=== PATIENT | male | born 1965 | race Caucasian/White ===

== ENCOUNTER → 2018-06-07 13:16 | Outpatient (CLI) | payer MEDICAID, SELFPAY ==
--- NOTE | 2018-06-07 13:20 | XR_ITS ---
XR knee RT 4V HISTORY: ITS.REASON: Rt knee pain ORDERING PHYSICIAN: Meghann Barron MD PATIENT AGE: 52 years COMPARISON: 12/17/2017 FINDINGS: Weightbearing views are performed. There is mild hypertrophic change along the lateral aspect of the patella with minimal decrease in the joint space medially. Small suprapatellar effusion suspected. No fracture or dislocation. No lytic or blastic change IMPRESSION: Minimal osteoarthritic change
== END ==
PROVIDERS: PCP Emergency Medicine; Visit Provider Orthopaedic Surgery
DX: M25.461 Effusion, right knee (principal)
CPT/HCPCS: 73564

== ENCOUNTER → 2018-06-14 12:46 | Outpatient (CLI) | payer MEDICAID, SELFPAY ==
--- NOTE | 2018-06-14 12:47 | MR_ITS ---
MR knee RT wo con HISTORY: Recent trauma, injury with pain ITS.REASON: rt knee pain ORDERING PHYSICIAN: Meghann Barron MD PATIENT AGE: 52 years Comparison: 06/07/2018 TECHNIQUE: Standard multiplanar multiecho sequences are performed without contrast. FINDINGS: Cruciate ligaments are intact. The collateral ligaments and patellar tendon have an unremarkable appearance. No meniscal tear is evident. There is some mild thinning of the patellar cartilage with slight increased T2 signal. There is a small area of increased T2 signal involving the dorsal and lateral aspect of the patella superiorly and is a in a typical location for dorsal defect of the patella as a normal variant. There is a small knee joint effusion. Moderate amount fluid is present in the suprapatellar region extending posterior to the quadriceps tendon. There is suspected tear of the posterior layer/vastus intermedius portion of the quadriceps tendon. The most anterior portion of the quadriceps tendon/rectus femoris portion does appear intact. Please correlate with physical exam. IMPRESSION: 1. Suspected tear of the posterior layer of the quadriceps tendon 2. Knee joint effusion
== END ==
PROVIDERS: PCP Emergency Medicine; Visit Provider Orthopaedic Surgery
DX: M25.461 Effusion, right knee (principal)
CPT/HCPCS: 73721

== ENCOUNTER → 2018-06-19 11:33 | Outpatient (CLI) | payer MEDICAID, SELFPAY ==
--- NOTE | 2018-06-19 11:51 | XR_ITS ---
XR chest 2V HISTORY: ITS.REASON: H/O TOBACCO USE,HTN ORDERING PHYSICIAN: Meghann Barron MD PATIENT AGE: 52 years COMPARISON: 02/23/2017 FINDINGS: Normal heart size. COPD with fibrotic change in the right upper lobe. No lobar consolidation or collapse. Chronic changes in the lung base posteriorly. No acute bony findings. IMPRESSION: COPD, no change with no acute finding
[2018-06-19 12:15] LABS: INR 1.01 (0.9-1.1); Prothrombin Time 10.4 seconds (9.4-11.8)
[2018-06-19 12:27] LABS: Basophils # 0.1 K/mm3 (0-0.2); Basophils % 0.6 % (0.1-2.0); Eosinophils # 0.8 K/mm3 (0.0-0.4); Eosinophils % 8.3 % (0.1-12.0); Hemoglobin 15.4 g/dL (14.1-18.0); Lymphocytes # 2.9 K/mm3 (0.7-4.5); Lymphocytes % 30.8 % (10-50); Mean Corpuscular HGB Conc 34.2 g/dL (31.8-35.4); Mean Corpuscular Hemoglobin 31.5 pg (27.0-31.2); Mean Corpuscular Volume 92.2 fl (80-94); Mean Platelet Volume 7.2 fl (7.4-10.4); Monocytes # 0.6 K/mm3 (0.1-1.0); Monocytes % 5.9 % (1.7-9.3); Neutrophils # 5.1 K/mm3 (1.8-7.8); Neutrophils % 54.4 % (37.0-80.0); Platelet Count 247 K/mm3 (142-424); Red Blood Count 4.88 M/mm3 (4.60-6.20); Red Cell Distribution Width 14.1 % (11.5-17.5); White Blood Count 9.4 K/mm3 (4.8-10.8)
[2018-06-19 12:33] LABS: Alanine Aminotransferase 46 U/L (12-78); Alkaline Phosphatase 75 U/L (46-116); Aspartate Amino Transferase 35 U/L (15-37); Bilirubin,Total 0.5 mg/dL (0.2-1.0); Blood Urea Nitrogen 9 mg/dL (7-18); Calcium 9.5 mg/dL (8.5-10.1); Carbon Dioxide 27 mmol/L (21.0-32.0); Chloride 93 mmol/L (98-107); Estimated Glomerular Filt Rate 89 ml/min (>60); GFR (African American) 107 ML/MIN (>60); Globulin 4.1 gm/dl (1.3-3.2); Glucose 88 mg/dL (74-106); Sodium 129 mmol/L (136-145); Total Protein,Serum 8.1 gm/dL (6.4-8.2)
== END ==
PROVIDERS: Visit Provider Orthopaedic Surgery
DX: Z01.818 Encounter for other preprocedural examination (principal); S76.111A Strain of right quadriceps muscle, fascia and tendon, initial encounter
CPT/HCPCS: 36415; 71046; 80053; 85025; 85610; 93005

== ENCOUNTER → 2018-06-24 17:33 | Outpatient (CLI) | payer MEDICAID, SELFPAY ==
[2018-06-24 18:14] LABS: Anion Gap 16.9 mEq/L (5-15); Blood Urea Nitrogen 8 mg/dL (7-18); Calcium 9.3 mg/dL (8.5-10.1); Carbon Dioxide 24 mmol/L (21.0-32.0); Chloride 93 mmol/L (98-107); Creatinine,Serum 0.76 mg/dL (0.70-1.30); Estimated Glomerular Filt Rate 108 ml/min (>60); GFR (African American) 130 ML/MIN (>60); Glucose 93 mg/dL (74-106); Potassium 4.9 mmoL/L (3.5-5.1); Sodium 129 mmol/L (136-145)
== END ==
PROVIDERS: Visit Provider Nurse Practitioner Family
DX: E87.1 Hypo-osmolality and hyponatremia (principal)
CPT/HCPCS: 80048

== ENCOUNTER → 2018-06-27 08:52 | Outpatient (CLI) | payer MEDICAID, SELFPAY ==
--- NOTE | 2018-06-27 08:57 | XR_ITS ---
XR hip RT 2-3V w/pelvis HISTORY: ITS.REASON: RT hip pain ORDERING PHYSICIAN: Meghann Barron MD PATIENT AGE: 52 years COMPARISON: None FINDINGS: No fracture or dislocation is evident. No significant degenerative change. No lytic or blastic change. Unremarkable soft tissues IMPRESSION: Negative hip
== END ==
PROVIDERS: PCP Emergency Medicine; Visit Provider Orthopaedic Surgery
DX: M25.551 Pain in right hip (principal)
CPT/HCPCS: 73502

== ENCOUNTER → 2018-07-04 10:21 | Outpatient (CLI) | payer MEDICAID, SELFPAY ==
--- NOTE | 2018-07-04 10:23 | US_ITS ---
US kidney retroperitoneal comp Ordering Physician: Frieda Felix Patient Age: 52 years: Male HISTORY: ITS.REASON: electrolyte imbalance TECHNIQUE: Ultrasound of both kidneys. COMPARISON :CT abdomen pelvis 02/23/2017. FINDINGS The kidneys appear normal in size and configuration bilateral, with no hydronephrosis nor mass. Cortex well-maintained bilaterally.Good color Doppler flow to both kidneys. spleen is incidentally imaged & appears normal size in character. Right kidney: 10.2 cm in length x 4.8 cm x 8.3 cm Left kidney: 10 cm x 4.7 cm x 5.7 cm. IMPRESSION: Kidneys within normal limits bilateral . Unremarkable bilateral renal ultrasound.
== END ==
PROVIDERS: PCP Nurse Practitioner Family; Visit Provider Nurse Practitioner Family
DX: E87.1 Hypo-osmolality and hyponatremia (principal); E87.8 Other disorders of electrolyte and fluid balance, not elsewhere classified
CPT/HCPCS: 76770

== ENCOUNTER → 2018-07-08 11:28 | Outpatient (CLI) | payer MEDICAID, SELFPAY ==
[2018-07-08 12:00] LABS: Basophils # 0.1 K/mm3 (0-0.2); Basophils % 0.6 % (0.1-2.0); Eosinophils # 0.8 K/mm3 (0.0-0.4); Eosinophils % 9.1 % (0.1-12.0); Hematocrit 42.7 % (42.0-52.0); Lymphocytes # 2.4 K/mm3 (0.7-4.5); Lymphocytes % 27.6 % (10-50); Mean Corpuscular HGB Conc 32.7 g/dL (31.8-35.4); Mean Corpuscular Hemoglobin 30.5 pg (27.0-31.2); Mean Corpuscular Volume 93.5 fl (80-94); Monocytes # 0.6 K/mm3 (0.1-1.0); Monocytes % 6.9 % (1.7-9.3); Neutrophils # 4.8 K/mm3 (1.8-7.8); Neutrophils % 55.8 % (37.0-80.0); Platelet Count 378 K/mm3 (142-424); Red Blood Count 4.57 M/mm3 (4.60-6.20); Red Cell Distribution Width 13.9 % (11.5-17.5); White Blood Count 8.5 K/mm3 (4.8-10.8)
[2018-07-10 13:22] LABS: Anion Gap 14.6 mEq/L (5-15); Blood Urea Nitrogen 9 mg/dL (7-18); Calcium 9.2 mg/dL (8.5-10.1); Carbon Dioxide 23 mmol/L (21.0-32.0); Chloride 94 mmol/L (98-107); Creatinine,Serum 0.85 mg/dL (0.70-1.30); Estimated Glomerular Filt Rate 95 ml/min (>60); GFR (African American) 115 ML/MIN (>60); Glucose 87 mg/dL (74-106); Potassium 4.6 mmoL/L (3.5-5.1); Sodium 127 mmol/L (136-145)
== END ==
PROVIDERS: Visit Provider Nurse Practitioner Family
DX: E87.1 Hypo-osmolality and hyponatremia (principal)
CPT/HCPCS: 36415; 80048; 83930; 85025

== ENCOUNTER → 2018-07-11 15:10 | Outpatient (CLI) | payer MEDICAID, SELFPAY ==
[2018-07-14 17:28] LABS: Osmolality, Urine 181 mOsmol/kg (.)
== END ==
PROVIDERS: Visit Provider Nurse Practitioner Family
DX: E87.1 Hypo-osmolality and hyponatremia (principal)
CPT/HCPCS: 83935

== ENCOUNTER 2018-07-18 14:00 | Outpatient (RCR) | payer MEDICAID, SELFPAY ==
--- NOTE | 2018-07-11 15:20 | HMH.PTOPEV ---
PT Outpatient Evaluation Rehab PT Outpatient Evaluation Start: 07/11/18 15:06 Freq: Status: Active Protocol: Document 07/11/18 15:07 ERICFRANCA (Rec: 07/11/18 15:20 WYATT [id number]) Electronically Signed By Haider Aceves PT 07/11/18 15:07 Outpatient Therapy Subjective History Subjective History This is the initial Physical Therapy evaluation for Vinay Juarez. Pt is a 52 y/o male referred to PT s/p L quad tendon repair. Pt had sx . Pt was unable to give good hx of original incident. Pt did state he slipped on his deck w/ leg bent underneath him. Pt rpeorts it happend ~ 6 months ago but pt also did not know what month it was and smelled of alcohol. After call to MD original report states accident was inat end of April 2018 Chief Complaint Pain Stiff Symptom Type Ache Sharp Numbness Tingling Symptoms Relieved By Rest/Positioning Prescription Meds Symptoms Aggravated By Physical Activity Walking Prior Functional Limitations None Current Functional Limitations Housework Standing Squatting Recreation Activity Walking Stairs Symptom Description Constant but Variable Hip/Knee Eval Gait Observation General Gait Pattern Observation Decrease Weight Bear (L) Assistive Device Assistive Devices Wheelchair Palpation Tenderness left Knee Palpation Finding Tenderness ROM Knee Extension Active Range of Motion ( 0 degrees) Knee Flexion Active Range of Motion ( 30 deg per protocol degrees) Outpatient Therapy Assessment Impairments Problems/Impairmments Palpation Tenderness Impaired Range of Motion Impaired Strength Impaired Walking Impaired Standing Impaired Household Care Impaired Stair Climbing Impaired Recreational
== END 2018-07-18 14:05 | disposition home or self-care (01) ==
LOC: PT 14:00
PROVIDERS: Visit Provider Orthopaedic Surgery
DX: S76.111D Strain of right quadriceps muscle, fascia and tendon, subsequent encounter (principal)
CPT/HCPCS: 97010; 97110; 97163

== ENCOUNTER → 2018-08-08 16:35 | Outpatient (CLI) | payer MEDICAID, SELFPAY ==
[2018-08-08 17:46] LABS: Basophils % 0.6 % (0.1-2.0); Eosinophils # 0.4 K/mm3 (0.0-0.4); Eosinophils % 5.4 % (0.1-12.0); Hematocrit 45.1 % (42.0-52.0); Hemoglobin 15.1 g/dL (14.1-18.0); Lymphocytes # 2.2 K/mm3 (0.7-4.5); Lymphocytes % 30.5 % (10-50); Mean Corpuscular HGB Conc 33.5 g/dL (31.8-35.4); Mean Corpuscular Volume 89.7 fl (80-94); Mean Platelet Volume 7.5 fl (7.4-10.4); Monocytes # 0.5 K/mm3 (0.1-1.0); Monocytes % 7.7 % (1.7-9.3); Neutrophils # 3.9 K/mm3 (1.8-7.8); Neutrophils % 55.9 % (37.0-80.0); Platelet Count 296 K/mm3 (142-424); Red Blood Count 5.02 M/mm3 (4.60-6.20); Red Cell Distribution Width 13.9 % (11.5-17.5); White Blood Count 7.1 K/mm3 (4.8-10.8)
[2018-08-08 18:11] LABS: Alanine Aminotransferase 434 U/L (12-78); Albumin Level 4.4 gm/dL (3.4-5.0); Albumin/Globulin Ratio 1.1 (1.1-1.8); Alkaline Phosphatase 111 U/L (46-116); Anion Gap 22.6 mEq/L (5-15); Aspartate Amino Transferase 502 U/L (15-37); Bilirubin,Total 0.6 mg/dL (0.2-1.0); Blood Urea Nitrogen 5 mg/dL (7-18); Calcium 9.3 mg/dL (8.5-10.1); Carbon Dioxide 19 mmol/L (21.0-32.0); Chloride 90 mmol/L (98-107); Chol/HDL Ratio 1.6 (1-3.5); Cholesterol 179 mg/dL (140-200); Creatinine,Serum 0.84 mg/dL (0.70-1.30); Estimated Glomerular Filt Rate 96 ml/min (>60); GFR (African American) 116 ML/MIN (>60); Globulin 4.1 gm/dl (1.3-3.2); Glucose 79 mg/dL (74-106); HDL Cholesterol 113 mg/dL (27-67); LDL Cholesterol 60 mg/dL (0-130); Potassium 4.6 mmoL/L (3.5-5.1); Sodium 127 mmol/L (136-145); T4 (Thyroxine) 6.3 ug/dl (4.7-13.3); Thyroid Stimulating Hormone 0.43 uIU/ml (0.358-3.740); Total Protein,Serum 8.5 gm/dL (6.4-8.2); Triglycerides 31 mg/dL (30-200); VLDL Cholesterol 6 mg/dL (0-40)
[2018-08-10 18:05] LABS: Vitamin D 25 Hydroxy 17.5 ng/mL (30.0-100.0)
== END ==
PROVIDERS: Visit Provider Nurse Practitioner Family
DX: R53.1 Weakness (principal); R05 Cough; R06.02 Shortness of breath; E55.9 Vitamin D deficiency, unspecified
CPT/HCPCS: 80053; 80061; 82652; 84436; 84443; 85025

== ENCOUNTER → 2018-08-19 13:21 | Outpatient (CLI) | payer MEDICAID, SELFPAY ==
[2018-08-19 14:52] LABS: INR 0.95 (0.9-1.1); Prothrombin Time 9.8 seconds (9.4-11.8)
[2018-08-21 08:16] LABS: HIV Screen 4th Generation wRfx Non Reactive (Non Reactive)
[2018-08-21 09:13] LABS: Hep B Core Ab, Total Negative (Negative); Hepatitis B Surface Antigen Negative (Negative)
[2018-08-22 07:08] LABS: Hep A Ab, Total Negative (Negative); Hepatitis B Surf Ab Quant <3.1 mIU/mL (Immunity>9.9); Hepatitis C Antibody <0.1 s/co ratio (0.0-0.9)
[2018-08-22 07:09] LABS: Vitamin B12 654 pg/mL (232-1245)
[2018-08-24 06:40] LABS: Vitamin B1 116.3 nmol/L (66.5-200.0)
[2018-08-24 18:01] LABS: Vitamin B6 13.4 ug/L (5.3-46.7)
== END ==
PROVIDERS: Visit Provider Nurse Practitioner Family
DX: R74.8 Abnormal levels of other serum enzymes (principal); R53.83 Other fatigue
CPT/HCPCS: 36415; 82607; 84207; 84425; 85610; 86703; 86704; 86706; 86708; 87340; 87380; 87522; G0432

== ENCOUNTER → 2018-08-27 08:22 | Outpatient (CLI) | payer MEDICAID, SELFPAY ==
[2018-08-27 09:06] LABS: Alanine Aminotransferase 194 U/L (12-78); Albumin Level 4.1 gm/dL (3.4-5.0); Albumin/Globulin Ratio 1.1 (1.1-1.8); Alkaline Phosphatase 100 U/L (46-116); Anion Gap 14.9 mEq/L (5-15); Aspartate Amino Transferase 250 U/L (15-37); Bilirubin,Total 0.5 mg/dL (0.2-1.0); Blood Urea Nitrogen 5 mg/dL (7-18); Calcium 9.6 mg/dL (8.5-10.1); Carbon Dioxide 27 mmol/L (21.0-32.0); Chloride 96 mmol/L (98-107); Creatinine,Serum 0.91 mg/dL (0.70-1.30); Estimated Glomerular Filt Rate 87 ml/min (>60); GFR (African American) 106 ML/MIN (>60); Globulin 3.8 gm/dl (1.3-3.2); Glucose 88 mg/dL (74-106); Potassium 4.9 mmoL/L (3.5-5.1); Sodium 133 mmol/L (136-145); Total Protein,Serum 7.9 gm/dL (6.4-8.2)
== END ==
PROVIDERS: Visit Provider Nurse Practitioner Family
DX: R74.8 Abnormal levels of other serum enzymes (principal)
CPT/HCPCS: 36415; 80053

== ENCOUNTER 2018-09-26 10:00 | Outpatient (RCR) | payer MEDICAID, SELFPAY ==
--- NOTE | 2018-08-29 15:37 | HMH.PTOPEV ---
PT Outpatient Evaluation Rehab PT Outpatient Evaluation Start: 08/29/18 14:34 Freq: Status: Active Protocol: Document 08/29/18 14:35 DERIANLOLI (Rec: 08/29/18 15:37 DERIANLOLI [id number]) Electronically Signed By Haider Aceves, PT 08/29/18 14:35 Outpatient Therapy Subjective History Subjective History This is the second Physical Therapy evaluation for Vinay Juarez. Pt is a 52 y/o male referred to PT s/p R quad tendon repair on 06/20/18. Pt has hx of ETOH abuse and is a poor historian, but states original injury was from a fall off his deck last summer - per MD report injury was in late . Pt reports he recently fell getting out of the tub and has pain w/ full knee extension and flexion. Pt reports his pain is an unrelentin 8-9/10 at all times . Pt did smell of alcohol during evaluation. Chief Complaint Pain,Weakness Symptom Type Ache,Throb,Sharp,Stabbing Symptoms Relieved By Ice,Prescription Meds Symptoms Aggravated By Standing,Physical Activity, Walking Prior Functional Limitations None Current Functional Limitations Housework,Driving,Standing, Squatting,Recreation Activity, Walking,Stairs Symptom Description Constant but Variable Level of pain today (0-10) 8 Pain scale - at its best (0-10) 8 Pain scale - at its worst (0-10) 9 Hip/Knee Eval Gait Observation General Gait Pattern Observation Antalgic Gait,Decrease Weight Bear (R),Decrease Stride Lngth (R) Palpation Tenderness right Knee Palpation Finding Tenderness Knee Palpation Overall Comment c/o TTP along medial and lateral joint lines MMT Knee Extension Strength Grade 3- Fair- Knee Flexion Strength Grade 3- Fair- ROM Knee Extension Active Range of Motion ( 5 degrees) Knee Extension Passive Range of Motion ( 0 degrees) Knee Flexion Active Range of Motion ( 117 degrees) Knee Flexion Passive Range of Motion ( 120 degrees) Outpatient Therapy Assessment Impairments Problems/Impairmments Palpation Tenderness,Impaired
== END 2018-09-26 10:05 | disposition home or self-care (01) ==
LOC: PT 10:00
PROVIDERS: Visit Provider Orthopaedic Surgery
DX: S76.111A Strain of right quadriceps muscle, fascia and tendon, initial encounter (principal)
CPT/HCPCS: 97110; 97163

== ENCOUNTER 2018-10-01 06:35 | Day surgery (SDC) | payer MEDICAID, SELFPAY ==
[2018-09-30 16:26] VITALS: BMI 24.3
[2018-10-01] VITALS (7 sets, daily range): BP systolic 121–153; BP diastolic 68–92; PULSE 71–80; RESP 18; TEMP 36.3–36.6; O2SAT 95–98
--- NOTE | 2018-10-01 07:08 | P.PN_ITS ---
[facility] Anesthesia Checklist - Patient Identification Patient Identification: Arm Band, Verbal (Name & ) - Structural Data Admitted From: Home Planned Operative Procedure/s: EGD/Colonoscopy Consent for Planned Operative Procedure(s) Verified: Yes Verified Documents: Surgical Consent, History and Physical - NPO Status Verified Time NPO: 00:00 - Additional verifications Anesthesia Reactions: No - Airway Assessment C-Spine Mobility Assessed: Yes TMJ Mobility Assessed: Yes Dentition: Poor Dentition (Missing teeth) - Neurological Assessment Level of Consciousness: Awake, Alert, Appropriate, Follows Commands Hx Seizures: Yes (Childhood seizure) Numbness or tingling in extremities: No - Anesthesia Plan Anesthesia Risk discussed: Yes Anesthesia Plan: Verified ASA Class: III Anesthesia Type: MAC [facility] History I have reviewed the patient's past medical history: Yes Medical History: Reports:: Anxiety, Chronic Obstructive Pulmonary Disease (COPD), Gastroesophageal Reflux Disease(GERD), Hypertension, Seizures (childhood seizures) Denies:: Cancer, Diabetes Mellitus Type 1, Diabetes Mellitus Type 2, Internal Pacemaker, MRSA *Have you ever received a pneumonia vaccine?: No *Have you received a flu vaccine this season?: No Other Medical History: Reports: Anemia, Other. Denies: Blood Transfusion Reaction Laterality Cases: Other Surgeries: Yes: EGD. No: Pacemaker Amputation: No Fractures: No - *Social History Smoking Status: Current every day smoker Tobacco Type: cigarettes # Packs/Day (cigarettes): 1 Alcohol Intake: current Alcohol Intake Frequency:: 3 or more drinks per day Substance Use Type: denies use *Occupational Status:: unemployed Housing: apartment *Travel in the last 8 weeks: None (NA) - Psychiatric History Pschychiatric History:: Reports:: Anxiety Family Hx:: Diabetes, Hypertension, Hyperlipidemia
[2018-10-01 07:52] LABS: Prothrombin Time 10.4 seconds (9.4-11.8)
[2018-10-01 07:56] LABS: Alanine Aminotransferase 74 U/L (12-78); Albumin Level 3.6 gm/dL (3.4-5.0); Albumin/Globulin Ratio 0.9 (1.1-1.8); Alkaline Phosphatase 78 U/L (46-116); Anion Gap 15.8 mEq/L (5-15); Aspartate Amino Transferase 66 U/L (15-37); Bilirubin,Total 0.5 mg/dL (0.2-1.0); Blood Urea Nitrogen 9 mg/dL (7-18); Calcium 8.5 mg/dL (8.5-10.1); Carbon Dioxide 23 mmol/L (21.0-32.0); Chloride 96 mmol/L (98-107); Creatinine Clearance Estimated 97 mL/min (50-200); Creatinine,Serum 0.91 mg/dL (0.70-1.30); Estimated Glomerular Filt Rate 87 ml/min (>60); GFR (African American) 106 ML/MIN (>60); Globulin 3.9 gm/dl (1.3-3.2); Glucose 90 mg/dL (74-106); Potassium 3.8 mmoL/L (3.5-5.1); Sodium 131 mmol/L (136-145); Total Protein,Serum 7.5 gm/dL (6.4-8.2)
--- NOTE | 2018-10-01 08:20 | HMH.SCOPE ---
- Procedure: Date: 10/01/18 Procedure Performed:: 1. Esophagogastroduodenoscopy with biopsies 2. Total colonoscopy with biopsies Indications:: Patient is a 52-year-old white male referred by Dr. Alfredo Anne for essentially screening colonoscopy. He has a reported history of very heavy alcohol abuse. I had previously performed upper endoscopy on him as an inpatient in May 2016 for possible GI blood loss and he had erosive esophagitis. He is never had prior colonoscopy. He has no reported family history. Performing Provider:: Jigar Anderson MD Referring Provider:: Mary Sedation:: Propofol Procedure:: Patient was taken to endoscopy procedure room. He was positioned in a lateral decubitus position. Adequate intravenous sedation was achieved with anesthesia titration of propofol. Olympus endoscope was inserted via the oropharynx and advanced through the esophagus. He had evidence of distal esophagitis between 30 cm from the incisors and 40 cm where the gastroesophageal junction was located. There was evidence of a Schatzki's ring without luminal compromise. Stomach was cannulated and insufflated. Retroflexion revealed no evidence of any appreciable hiatal hernia. Pylorus was traversed and duodenum appeared unremarkable. Gastric mucosa appeared unremarkable. Several biopsies were obtained at the gastroesophageal junction and in the distal esophagus to rule out Slaughter's. CLOtest was performed after gastric antral mucosal biopsy. Endoscope was withdrawn. Patient was repositioned for colonoscopy. Variable stiffness Olympus colonoscope was inserted via the anus and advanced to the cecum. Colonic preparation was good. Ileocecal valve and appendiceal orifice were identified. Patient had some evidence of minor mucosal inflammation diffusely. Random colon biopsies were obtained to rule out microscopic colitis. In the sigmoid colon there was some diverticuli noted. Retroflexion within the rectum revealed no evidence of any pathologic internal hemorrhoids. Colonoscope was withdrawn. Findings:: Distal esophagitis Schatzki's ring Mild diverticulosis Possible colitis Recommendations:: Likely repeat colonoscopy 5 to 10 years. Upper endoscopy findings likely lifestyle related. If Slaughter's metaplasia is present may need ongoing surveillance by upper endoscopy. Complications:: None Estimated blood obtained (mL): 2
[2018-10-01 08:42] LABS: Basophils # 0.1 K/mm3 (0-0.2); Basophils % 0.7 % (0.1-2.0); Eosinophils # 1.5 K/mm3 (0.0-0.4); Eosinophils % 21.1 % (0.1-12.0); Hematocrit 40.3 % (42.0-52.0); Lymphocytes # 1.9 K/mm3 (0.7-4.5); Lymphocytes % 26.2 % (10-50); Mean Corpuscular HGB Conc 34.8 g/dL (31.8-35.4); Mean Corpuscular Hemoglobin 30.4 pg (27.0-31.2); Mean Corpuscular Volume 87.5 fl (80-94); Mean Platelet Volume 7.5 fl (7.4-10.4); Monocytes # 0.7 K/mm3 (0.1-1.0); Monocytes % 9.3 % (1.7-9.3); Neutrophils # 3.1 K/mm3 (1.8-7.8); Neutrophils % 42.8 % (37.0-80.0); Platelet Count 195 K/mm3 (142-424); Red Blood Count 4.61 M/mm3 (4.60-6.20); Red Cell Distribution Width 14.7 % (11.5-17.5); White Blood Count 7.2 K/mm3 (4.8-10.8)
== END 2018-10-01 09:10 | disposition home or self-care (01) ==
LOC: OUTP 06:36
PROVIDERS: PCP Emergency Medicine; Visit Provider Surgery
PROC: 0DJ08ZZ Inspection of Upper Intestinal Tract, Via Natural or Artificial Opening Endoscopic (ICD-10-PCS; CPT 43235; principal; 2018-10-01 07:30)
DX: Z12.11 Encounter for screening for malignant neoplasm of colon (principal); K22.2 Esophageal obstruction; K20.9 Esophagitis, unspecified; F10.11 Alcohol abuse, in remission; K57.30 Diverticulosis of large intestine without perforation or abscess without bleeding
CPT/HCPCS: 43239; 45380; 36415; 80053; 83735; 85025; 85610; 87339

== ENCOUNTER → 2019-09-02 17:21 | Outpatient (CLI) | payer MEDICAID, SELFPAY ==
[2019-09-02 18:20] LABS: Chloride 96 mmol/L (98-107); Potassium 4.5 mmoL/L (3.5-5.1); Sodium 130 mmol/L (136-145)
[2019-09-02 18:23] LABS: Alanine Aminotransferase 65 U/L (12-78); Albumin Level 4.9 g/dl (3.5-5.0); Albumin/Globulin Ratio 1.5 (1.1-1.8); Alkaline Phosphatase 71 U/L (38-126); Anion Gap 18.5 mEq/L (5-15); Aspartate Amino Transferase 102 U/L (17-59); Bilirubin,Total 0.7 mg/dl (0.2-1.3); Blood Urea Nitrogen 6 mg/dl (9-20); Carbon Dioxide 20 mmol/L (22.0-30.0); Estimated Glomerular Filt Rate 118 ml/min (>60); GFR (African American) 143 ML/MIN (>60); Globulin 3.3 g/dL (1.3-3.2); Total Protein,Serum 8.2 g/dl (6.3-8.2)
[2019-09-02 18:24] LABS: Calcium 9.7 mg/dl (8.4-10.2); Glucose 88 mg/dl (74-100)
[2019-09-02 18:26] LABS: Basophils # 0.1 K/mm3 (0-0.2); Eosinophils # 1.2 K/mm3 (0.0-0.4); Eosinophils % 11.1 % (0.1-12.0); Hematocrit 40.9 % (42.0-52.0); Hemoglobin 13.8 g/dL (14.1-18.0); Lymphocytes # 3.5 K/mm3 (0.7-4.5); Lymphocytes % 31.6 % (10-50); Mean Corpuscular HGB Conc 33.8 g/dL (31.8-35.4); Mean Corpuscular Hemoglobin 30.9 pg (27.0-31.2); Mean Corpuscular Volume 91.6 fl (80-94); Mean Platelet Volume 8.6 fl (7.4-10.4); Monocytes # 0.6 K/mm3 (0.1-1.0); Monocytes % 5.7 % (1.7-9.3); Neutrophils # 5.6 K/mm3 (1.8-7.8); Neutrophils % 50.6 % (37.0-80.0); Platelet Count 239 K/mm3 (142-424); Red Blood Count 4.47 M/mm3 (4.60-6.20); Red Cell Distribution Width 14.6 % (11.5-17.5)
[2019-09-02 19:46] LABS: Ethyl Alcohol 170 mg/dl (0-10)
== END ==
PROVIDERS: Visit Provider Emergency Medicine
DX: R41.3 Other amnesia (principal); M25.511 Pain in right shoulder
CPT/HCPCS: 80053; 85025

== ENCOUNTER → 2019-10-15 15:14 | Outpatient (CLI) | payer MEDICAID, SELFPAY | PROVIDERS: PCP Emergency Medicine; Visit Provider Nurse Practitioner Family | DX: G47.30 Sleep apnea, unspecified (principal); G47.9 Sleep disorder, unspecified; R06.83 Snoring; R53.83 Other fatigue; R51 Headache; R41.3 Other amnesia | CPT/HCPCS: 95806 ==

== ENCOUNTER → 2019-10-16 11:44 | Outpatient (CLI) | payer MEDICAID, SELFPAY ==
[2019-10-16 13:23] LABS: Blood Urea Nitrogen 10 mg/dl (9-20); Estimated Glomerular Filt Rate 88 ml/min (>60); GFR (African American) 107 ML/MIN (>60)
[2019-10-16 13:53] LABS: Thyroid Stimulating Hormone 1.15 uIU/mL (0.465-4.68)
[2019-10-19 17:12] LABS: Vitamin B12 597
[2019-10-19 17:29] LABS: Folate 5.4; Rapid Plasma Reagin Ab Titer Non Reactive
== END ==
PROVIDERS: Nurse Practitioner Family; Visit Provider Specialist
DX: F10.10 Alcohol abuse, uncomplicated (principal); R41.3 Other amnesia; R51 Headache; G47.30 Sleep apnea, unspecified; G47.9 Sleep disorder, unspecified; R06.83 Snoring; R53.83 Other fatigue; Z87.898 Personal history of other specified conditions
CPT/HCPCS: 36415; 82565; 82607; 82746; 84443; 84520; 86592

== ENCOUNTER → 2019-10-17 07:58 | Outpatient (CLI) | payer MEDICAID, SELFPAY ==
--- NOTE | 2019-10-17 07:59 | MR_ITS ---
PROCEDURE: MR HEAD/BRAIN WO CON CLINICAL INDICATION: memory loss, headache, seizure [facility] TECHNIQUE: Routine multiplanar multi echo sequences are performed without gadolinium enhancement. FINDINGS: The or no midline shift, mass effect, intracranial hemorrhage, or hydrocephalus. No evidence of acute infarction. There are scattered periventricular and subcortical T2 white matter hyperintensities which are nonspecific. The the cerebellopontine angle, cerebellum, and brainstem are unremarkable. There is mild generalized atrophy. There are some opacified ethmoid air cells with mucosal thickening also of the right frontal sinus and right maxillary sinus. Slight increased T2 signal noted in the left mastoid sinus. The pituitary, optic chiasm, and craniocervical junction have an unremarkable appearance. There is mild thinning of the corpus callosum posteriorly IMPRESSION: 1. No acute intracranial findings. 2. Atrophy with nonspecific periventricular and subcortical T2 white matter hyperintensities which may be seen with ischemic gliotic change from microvascular disease. Migraine headache and demyelinating process included in the differential diagnosis. Please correlate with clinical parameters. 3. Mild paranasal and left mastoid sinus disease Dictated by: Jeffery De Souza MD 10/20/2019 11:36 Electronically signed by Jeffery De Souza MD in [place] 10/20/2019 11:36
== END ==
PROVIDERS: PCP Emergency Medicine; Visit Provider Specialist
DX: R51 Headache (principal); R41.3 Other amnesia; F10.10 Alcohol abuse, uncomplicated; G47.30 Sleep apnea, unspecified; G47.9 Sleep disorder, unspecified; R06.83 Snoring; R53.83 Other fatigue; Z87.898 Personal history of other specified conditions
CPT/HCPCS: 70551

== ENCOUNTER → 2019-12-10 14:49 | Outpatient (CLI) | payer MEDICAID, SELFPAY ==
[2019-12-10 22:29] LABS: Coronavirus 19 IgG Antibody Negative (Negative); Coronavirus 19 IgM Antibody Negative (Negative)
== END ==
PROVIDERS: Visit Provider Nurse Practitioner Family
DX: Z01.84 Encounter for antibody response examination (principal)
CPT/HCPCS: 36415; 86328

== ENCOUNTER → 2019-12-11 20:13 | Outpatient (CLI) | payer MEDICAID, SELFPAY | PROVIDERS: PCP Emergency Medicine; Visit Provider Specialist | DX: Z01.818 Encounter for other preprocedural examination (principal); G47.33 Obstructive sleep apnea (adult) (pediatric) | CPT/HCPCS: 95810 ==

== ENCOUNTER → 2020-04-20 15:08 | Outpatient (CLI) | payer MEDICAID, SELFPAY ==
[2020-04-20 16:22] LABS: Chloride 94 mmol/L (98-107); Potassium 5.5 mmoL/L (3.5-5.1); Sodium 131 mmol/L (136-145)
[2020-04-20 16:25] LABS: Anion Gap 13.5 mEq/L (5-15); Blood Urea Nitrogen 14 mg/dl (9-20); Carbon Dioxide 29 mmol/L (22.0-30.0); Estimated Glomerular Filt Rate 88 ml/min (>60); GFR (African American) 106 ML/MIN (>60)
[2020-04-20 16:26] LABS: Calcium 10.4 mg/dl (8.4-10.2); Glucose 103 mg/dl (74-100)
== END ==
PROVIDERS: Visit Provider Emergency Medicine
DX: R56.9 Unspecified convulsions (principal)
CPT/HCPCS: 80048

== ENCOUNTER → 2020-04-29 14:47 | Outpatient (CLI) | payer MEDICAID, SELFPAY ==
--- NOTE | 2020-04-29 14:48 | MR_ITS ---
PROCEDURE: MR HEAD/BRAIN WO CON Referring Doctor: Thanh Awad Patient Age:54Y CLINICAL INDICATION: seizures, headache COMPARISON: MR MR HEAD/BRAIN WO CON from 10/17/2019 TECHNIQUE: Multiplanar multi sequence imaging 1.5 T MR.. No IV contrast utilized Image sequences included axial T1, T2, FLAIR, diffusion/ADC as well as sagittal T2 and coronal FLAIR but No IV contrast utilized FINDINGS: . Nor no midline shift, mass effect, nor. No subdural collections There are scattered periventricular and subcortical T2 white matter hyperintensities which are nonspecific.. There is slightly more numerous and evident at the left cerebral hemisphere than right but are seen bilaterally These high signal foci appear similar in pattern and size to previous September 2019 MRI exam. Only question there may be a small new deep white matter high-signal focus on coronal FLAIR image 21 overlying atria left lateral ventricle. Some the other areas are slightly brighter but this merely merely reflect slight variations in technique.. High-signal foci this character can be seen with underlying vascular disease or can be seen with headaches. The possibility of a demyelinating disease considered but unlikely onset in this age patient The cerebellopontine angle, cerebellum, and brainstem are unremarkable. There is mild generalized atrophy. Mucosal thickening with some areas of opacification ethmoid air cells. Stable mild mucosal thickening also of bilateral frontal sinus. Trace mucosal thickening frontal sinuses bilateral but. S scant focus increased T2 signal noted in the inferior left mastoid sinus stable and does not appear to be of significance.. Engorged of nasal turbinates bilaterally The pituitary, optic chiasm, and craniocervical junction have an unremarkable appearance. There is mild thinning of the corpus callosum most evident posteriorly IMPRESSION: IMPRESSION: 1. No acute intracranial findings. No mass lesions; no acute infarct . 2. .. Nonspecific scattered white matter hyperintensities foci which may be seen with ischemic gliotic change from microvascular disease. Migraine headache included in differential diagnosis. Demyelinating process less likely in this age patient. Correlate with clinical picture and parameters These high signal foci at white matter appear fairly stable overall to the previous September 2019 MRI exam. There may be 1 additional tiny high signal focus overlying the atria of left lateral ventricle on today's study Perhaps minimal cerebral atrophy for age 3. Mild paranasal disease. Most evident at ethmoid air cells Dictated by: Houston Rosales MD 04/29/2020 16:43 Houston Rosales MD in [place] 04/29/2020 16:43
== END ==
PROVIDERS: PCP Emergency Medicine; Visit Provider Specialist
DX: G40.909 Epilepsy, unspecified, not intractable, without status epilepticus (principal); G89.29 Other chronic pain; R51.9 Headache, unspecified
CPT/HCPCS: 70551

== ENCOUNTER → 2020-05-29 12:54 | Outpatient (CLI) | payer MEDICAID, SELFPAY ==
[2020-05-29 13:49] LABS: Basophils # 0.1 K/mm3 (0-0.2); Basophils % 0.8 % (0.1-2.0); Eosinophils # 1.9 K/mm3 (0.0-0.4); Eosinophils % 17.7 % (0.1-12.0); Hematocrit 47.4 % (42.0-52.0); Hemoglobin 15.2 g/dL (14.1-18.0); Lymphocytes % 28.5 % (10-50); Mean Corpuscular HGB Conc 32.2 g/dL (31.8-35.4); Mean Corpuscular Hemoglobin 30.3 pg (27.0-31.2); Mean Corpuscular Volume 94.2 fl (80-94); Mean Platelet Volume 7.6 fl (7.4-10.4); Monocytes # 0.6 K/mm3 (0.1-1.0); Monocytes % 5.8 % (1.7-9.3); Neutrophils % 47.2 % (37.0-80.0); Platelet Count 269 K/mm3 (142-424); Red Blood Count 5.03 M/mm3 (4.60-6.20); Red Cell Distribution Width 14.3 % (11.5-17.5); White Blood Count 10.6 K/mm3 (4.8-10.8)
[2020-05-29 14:33] LABS: Albumin Level 5.1 g/dl (3.5-5.0); Blood Urea Nitrogen 11 mg/dl (9-20); Calcium 10.4 mg/dl (8.4-10.2); Carbon Dioxide 28 mmol/L (22.0-30.0); Chloride 93 mmol/L (98-107); Estimated Glomerular Filt Rate 88 ml/min (>60); GFR (African American) 106 ML/MIN (>60); Glucose 89 mg/dl (74-100); Phosphorous 5.1 mg/dl (2.5-4.5); Sodium 132 mmol/L (136-145)
[2020-05-29 14:46] LABS: Intact Parathyroid Hormone 31.5 pg/mL (7.5-53.5)
[2020-05-29 14:50] LABS: 25-OH Vitamin D, Total 38.7 ng/mL (30-100)
== END ==
PROVIDERS: Visit Provider Internal Medicine Nephrology
DX: E87.1 Hypo-osmolality and hyponatremia (principal); E78.5 Hyperlipidemia, unspecified
CPT/HCPCS: 36415; 80069; 82306; 83970; 85025

== ENCOUNTER → 2020-07-01 09:12 | Outpatient (CLI) | payer MEDICAID, SELFPAY | PROVIDERS: PCP Emergency Medicine; Visit Provider Nurse Practitioner Family | DX: R55 Syncope and collapse (principal); R05 Cough; G40.909 Epilepsy, unspecified, not intractable, without status epilepticus; G89.29 Other chronic pain; R41.3 Other amnesia; R51.9 Headache, unspecified; Z72.0 Tobacco use | CPT/HCPCS: 93270 ==

== ENCOUNTER → 2020-07-26 10:48 | Outpatient (CLI) | payer MEDICAID, SELFPAY ==
[2020-07-31 14:50] LABS: Levetiracetam (Keppra) 15.3 ug/mL (10.0-40.0)
== END ==
PROVIDERS: Visit Provider Emergency Medicine
DX: R56.9 Unspecified convulsions (principal)
CPT/HCPCS: 36415; 80177

== ENCOUNTER → 2020-08-24 09:56 | Outpatient (CLI) | payer MEDICAID, SELFPAY ==
[2020-08-24 11:21] LABS: Anion Gap 15.2 mEq/L (5-15); Blood Urea Nitrogen 5 mg/dl (9-20); Calcium 9.9 mg/dl (8.4-10.2); Carbon Dioxide 25 mmol/L (22.0-30.0); Chloride 86 mmol/L (98-107); Estimated Glomerular Filt Rate 101 ml/min (>60); GFR (African American) 122 ML/MIN (>60); Glucose 99 mg/dl (74-100); Phosphorous 4.3 mg/dl (2.5-4.5); Potassium 5.2 mmoL/L (3.5-5.1); Sodium 121 mmol/L (136-145)
[2020-08-24 11:47] LABS: Intact Parathyroid Hormone 22.7 pg/mL (7.5-53.5)
[2020-08-24 11:51] LABS: 25-OH Vitamin D, Total 59.8 ng/mL (30-100)
[2020-08-25 15:14] LABS: Sodium, Urine 23 mmol/L (Not Estab.)
[2020-08-26 08:45] LABS: Calcium, Ionized 5.3 mg/dL (4.5-5.6)
[2020-08-26 17:23] LABS: Osmolality, Urine 142 mOsmol/kg (.)
[2020-09-03 00:50] LABS: 1,25 Dihydroxy Vitamin D 63 pg/mL (.); 1,25-Dihydroxy, Vitamin D-2 33 pg/mL (.); 1,25-Dihydroxy, Vitamin D-3 30 pg/mL (.)
== END ==
PROVIDERS: Visit Provider Internal Medicine Nephrology
DX: E87.1 Hypo-osmolality and hyponatremia (principal); Z68.25 Body mass index [BMI] 25.0-25.9, adult
CPT/HCPCS: 36415; 80069; 82306; 82330; 82652; 83935; 83970; 84300

== ENCOUNTER → 2020-09-01 13:05 | Outpatient (POV) | payer MEDICAID, SELFPAY | PROVIDERS: Visit Provider Internal Medicine Nephrology | DX: Z00.00 Encounter for general adult medical examination without abnormal findings (principal) ==

== ENCOUNTER 2020-09-10 09:50 | Emergency (ER) | payer MEDICAID, SELFPAY ==
[2020-09-10 09:52] VITALS: BP 177/85; PULSE 79; RESP 19; TEMP 36.6; O2SAT 99; BMI 25.8
--- NOTE | 2020-09-10 10:03 | XR_ITS ---
PROCEDURE: XR KNEE RT 4V CLINICAL INDICATION: pain/injury COMPARISON: CR [id number] XR knee RT 4V from 12/17/2017 CR [id number] XR knee RT 4V from 06/07/2018 FINDINGS: There is a linear fracture of the medial aspect of the patella, demonstrates no significant displacement. Focal lucency is noted within the patella, likely secondary to prior surgery. Focal ossific densities noted within the patellofemoral compartment, demonstrates corticated margins, likely long-standing. Focal ossific fragments are noted at the expected location of the quadriceps tendon insertion, likely secondary to prior injury. Minor degenerative changes of the knee joint are noted with the osteophyte formation, worse in the medial compartment. Suprapatellar joint effusion is noted. IMPRESSION: Linear lucency through the superolateral patella, suspicious for fracture. Sequela of prior surgery in the patella. Dictated by: Eula Roach 09/10/2020 12:10 Elua Roach in [place] 09/10/2020 12:10
--- NOTE | 2020-09-10 11:06 | HMH.EDGENADL ---
ED Disposition Clinical Impression: Knee sprain Qualifiers: Encounter type: initial encounter Involved ligament of knee: other ligament Laterality: right Qualified Code(s): S83.8X1A - Sprain of other specified parts of right knee, initial encounter Disposition: Home, Self-Care Condition on Discharge: Good Instructions: DI for Knee Sprain Prescriptions: Ibuprofen [Ibuprofen 800mg Tablet] 800 mg PO TIDP PRN #20 tab PRN Reason: Moderate Pain Transmission Status: Pending to Clinic [facility] Referrals: Jasmeet Anne MD [Primary Care Provider] - - Critical Care Critical Care Time: No Attestation: On 09/10/20, the high probability of a clinically significant, sudden or life threatening deterioration of the following system(s) required my full and direct attention, intervention and personal management. The time I documented below is in addition to time spent performing reported procedures but includes the following listed in this critical care notation. Medical Decision Making - Medical Records Medical records reviewed: Yes: I reviewed the patient's medical records. - Kel[place] Inquiry Pt receiving controlled substance: Yes Kel[place] was queried for this patient: No Risks and benefits of using a controlled substance: were discussed with pt by me Vital Signs: 09/10/20 09:52 Temperature 97.9 F Temperature Source Oral Pulse Rate [Left Radial] 79 Respiratory Rate 19 Blood Pressure [Right Arm] 177/85 H Blood Pressure Mean [Right Arm] 115 Blood Pressure Source [Right Arm] Automatic Cuff Blood Pressure Position [Right Arm] Sitting 02 Sat by Pulse Oximetry 99 Oxygen Delivery Method Room Air Orders (Tests/Meds): ED MEDICATIONS Discontinued Medications Generic Name Dose Route Start Last Admin Trade Name Freq PRN Reason Stop Dose Admin Hydrocodone Bitart/Acetaminophen 1 tab 09/10/20 10:45 09/10/20 10:50 Hydrocodone 10mg/Apap 325mg Tab PO 09/10/20 10:46 1 tab ONCE ONE Administration ORDERS Category Date Time Status XR knee RT 4V Stat Exams 09/10/20 10:03 Ordered - Radiology Data #1 Image(s): Knee Image Reviewed: Yes I reviewed the patient's radiology results, Yes I reviewed the patient's radiology image Preliminary Findings: Normal/NAD, No Fracture Seen - Reevaluation(s) Time: 11:14 Reevaluation #1: On reevaluation, patient is feeling better. There is no obvious fracture. Patient needs follow-up with PCP. Given strict return precautions. Verbalized understanding. Medical Decision Narrative: 54-year-old male presented to the emergency department with some right knee pain after a fall. On his consistent with a sprain. Patient provided analgesics. Imaging obtained. General Adult HPI - General Chief complaint: PAIN Stated complaint: [id number] right knee pain, home accident Time Seen by Provider: 09/10/20 09:55 Mode of Arrival: Ambulatory Limitations: No Limitations Description of Symptoms (Recalled from ER Triage Doc. by RN): pt c/o right knee pain after her fell last night. States he heard a pop when he fell, previous sx on that knee - History of Present Illness HPI narrative: This is a 54-year-old male presented to the emergency department with some right knee pain. The patient states that he fell last night and hit his right knee on the ground. Patient has been complaining of some significant right knee pain since then. He has not taken anything for the pain. Patient states that he has had to walk with a limp secondary to the pain. Patient denies any other injuries. There is no loss of consciousness. No syncope. Denies any trauma to the head or neck. Is not having any chest pain or shortness of breath. Abdominal pain or vomiting. No diarrhea. No fevers or chills. No headache, no change in vision, no focal weakness. - Related Data Home Medications Medication Instructions Recorded Confirmed levetiracetam 500 mg tablet 1,000 mg PO BID t
[2020-09-10 11:18] VITALS: BP 162/80; PULSE 72; RESP 16; TEMP 36.8; O2SAT 98
== END 2020-09-10 12:31 | disposition home or self-care (01) ==
PROVIDERS: Emergency Provider Emergency Medicine; PCP Emergency Medicine
DX: S83.8X1A Sprain of other specified parts of right knee, initial encounter (principal); W01.0XXA Fall on same level from slipping, tripping and stumbling without subsequent striking against object, initial encounter; Y92.9 Unspecified place or not applicable; I10 Essential (primary) hypertension; K21.9 Gastro-esophageal reflux disease without esophagitis; E78.5 Hyperlipidemia, unspecified; F41.8 Other specified anxiety disorders; F17.210 Nicotine dependence, cigarettes, uncomplicated
CPT/HCPCS: 73560; 73564; 99282

== ENCOUNTER → 2020-09-20 10:46 | Outpatient (CLI) | payer MEDICAID, SELFPAY ==
--- NOTE | 2020-09-20 10:49 | XR_ITS ---
PROCEDURE: XR KNEE RT 3V CLINICAL INDICATION: patellar fracture Follow-up COMPARISON: CR [id number] XR knee RT 4V from 12/17/2017 CR [id number] XR knee RT 4V from 06/07/2018 CR XR KNEE RT 4V from 09/10/2020 FINDINGS: Longitudinal fracture once again noted involving the lateral aspect of the patella not significantly displaced. Soft tissue swelling noted in the suprapatellar region The joint spaces are well-preserved. No significant degenerative/arthritic changes. No erosive changes evident. Other findings:None. IMPRESSION: No change nondisplaced patellar fracture Dictated by: Jeffery De Souza MD 09/20/2020 11:23 Jeffery De Souza MD in [place] 09/20/2020 11:23
== END ==
PROVIDERS: PCP Emergency Medicine; Visit Provider Orthopaedic Surgery
DX: S82.001A Unspecified fracture of right patella, initial encounter for closed fracture (principal)
CPT/HCPCS: 73562

== ENCOUNTER 2020-09-23 12:39 | Outpatient (RCR) | payer MEDICAID, SELFPAY | END 2020-09-23 13:47 | disposition home or self-care (01) | LOC: PT 12:39 | PROVIDERS: Visit Provider Orthopaedic Surgery | DX: S82.001A Unspecified fracture of right patella, initial encounter for closed fracture (principal) | CPT/HCPCS: 97760 ==

== ENCOUNTER → 2020-09-24 12:43 | Outpatient (CLI) | payer MEDICAID, SELFPAY ==
--- NOTE | 2020-09-24 12:44 | CA_ITS ---
APPROVED REPORT [employer]: Juliette Braswell RVT Laterality: Bilateral Study Quality: Good Indications: bruit Risk Factors Hypertension: Hyperlipidemia Smoking Doppler Spectral Velocity Analysis ECA (R) 101.60/11.80 cm/s ECA (L) 108.00/11.80 cm/s dICA (R) 52.40/22.50 cm/s dICA (L) 97.30/23.50 cm/s Avery (R) 71.60/19.20 cm/s Avery (L) 86.60/23.50 cm/s pICA (R) 65.20/10.70 cm/s pICA (L) 75.90/23.50 cm/s dCCA (R) 63.10/12.80 cm/s dCCA (L) 53.50/11.80 cm/s pCCA (R) 83.40/6.40 cm/s pCCA (L) 81.30/9.60 cm/s Vert (R) 32.10/5.30 cm/s Vert (L) 50.30/7.50 cm/s ICA/CCA 1.14 ICA/CCA 1.82 Findings Study suggests 20-49% stenosis of the right internal cartoid artery. Study suggests 20-49% stenosis of the left internal cartoid artery. Antegrade flow seen bilateral vertebral arteries. Conclusion Study suggests 20-49% stenosis of the right internal cartoid artery. Study suggests 20-49% stenosis of the left internal cartoid artery. Antegrade flow seen bilateral vertebral arteries. Electronically signed by : Jeffery De Souza MD 09/28/2020 17:53:14
== END ==
PROVIDERS: PCP Emergency Medicine; Visit Provider Emergency Medicine
DX: R09.89 Other specified symptoms and signs involving the circulatory and respiratory systems (principal)
CPT/HCPCS: 93880

== ENCOUNTER → 2020-10-14 11:24 | Outpatient (CLI) | payer MEDICAID, SELFPAY ==
--- NOTE | 2020-10-14 11:27 | XR_ITS ---
PROCEDURE: XR KNEE RT 2V CLINICAL INDICATION: right patella fx COMPARISON: CR [id number] XR knee RT 4V from 12/17/2017 CR [id number] XR knee RT 4V from 06/07/2018 CR XR KNEE RT 4V from 09/10/2020 CR XR KNEE RT 3V from 09/20/2020 FINDINGS: Vertically-oriented fracture of the lateral aspect of the patella again noted. Mild diffuse degenerative change of the knee noted. Small joint effusion. Some prepatellar soft tissue swelling noted. No acute fracture or dislocation. IMPRESSION: Unchanged vertically-oriented fracture of the lateral aspect of the patella. Mild diffuse degenerative changes of the knee with small joint effusion. Dictated by: Bill Taylor MD 10/14/2020 12:20 Bill Taylor MD in [place] 10/14/2020 12:20
== END ==
PROVIDERS: PCP Emergency Medicine; Visit Provider Orthopaedic Surgery
DX: S82.001A Unspecified fracture of right patella, initial encounter for closed fracture (principal)
CPT/HCPCS: 73560

== ENCOUNTER → 2020-10-21 12:19 | Outpatient (CLI) | payer MEDICAID, SELFPAY ==
[2020-10-21 13:09] LABS: Basophils # 0.1 K/mm3 (0-0.2); Basophils % 0.9 % (0.1-2.0); Eosinophils # 1.3 K/mm3 (0.0-0.4); Eosinophils % 11.6 % (0.1-12.0); Hematocrit 41.9 % (42.0-52.0); Hemoglobin 13.7 g/dL (14.1-18.0); Lymphocytes # 2.9 K/mm3 (0.7-4.5); Lymphocytes % 25.5 % (10-50); Mean Corpuscular HGB Conc 32.6 g/dL (31.8-35.4); Mean Corpuscular Hemoglobin 28.1 pg (27.0-31.2); Mean Corpuscular Volume 86.2 fl (80-94); Mean Platelet Volume 7.8 fl (7.4-10.4); Monocytes # 0.7 K/mm3 (0.1-1.0); Monocytes % 6.4 % (1.7-9.3); Neutrophils # 6.2 K/mm3 (1.8-7.8); Neutrophils % 55.5 % (37.0-80.0); Platelet Count 254 K/mm3 (142-424); Red Blood Count 4.86 M/mm3 (4.60-6.20); Red Cell Distribution Width 14.9 % (11.5-17.5); White Blood Count 11.1 K/mm3 (4.8-10.8)
[2020-10-21 13:23] LABS: Chloride 92 mmol/L (98-107); Potassium 4.8 mmoL/L (3.5-5.1); Sodium 129 mmol/L (136-145)
[2020-10-21 13:26] LABS: Alanine Aminotransferase 17 U/L (12-78); Albumin Level 4.7 g/dl (3.5-5.0); Albumin/Globulin Ratio 1.5 (1.1-1.8); Alkaline Phosphatase 88 U/L (38-126); Anion Gap 15.8 mEq/L (5-15); Aspartate Amino Transferase 28 U/L (17-59); Bilirubin,Total 0.5 mg/dl (0.2-1.3); Blood Urea Nitrogen 13 mg/dl (9-20); Carbon Dioxide 26 mmol/L (22.0-30.0); Estimated Glomerular Filt Rate 88 ml/min (>60); GFR (African American) 106 ML/MIN (>60); Globulin 3.2 g/dL (1.3-3.2); Total Protein,Serum 7.9 g/dl (6.3-8.2)
[2020-10-21 13:27] LABS: Calcium 9.6 mg/dl (8.4-10.2); Glucose 99 mg/dl (74-100)
[2020-10-26 09:46] LABS: Levetiracetam (Keppra) 2.9 ug/mL (10.0-40.0)
== END ==
PROVIDERS: Visit Provider Nurse Practitioner Family
DX: R56.9 Unspecified convulsions (principal); Z51.81 Encounter for therapeutic drug level monitoring
CPT/HCPCS: 36415; 80053; 80177; 85025

== ENCOUNTER → 2020-11-15 14:16 | Outpatient (CLI) | payer MEDICAID, SELFPAY ==
--- NOTE | 2020-11-15 14:17 | CA_ITS ---
APPROVED REPORT EXAM: Comprehensive 2D, Doppler, and color-flow Echocardiogram [employer] Craftsman: Shefali Hernandez CRT Ht: 5 ft 8 in Wt: 182lbs BSA: 1.96 BP: 151/88 mmHg Indications: Chest Pain, Shortness of Breath, Hypertension/HDD, ROXANA, abn EKG, Smoker 2D Dimensions LVOT 1.96 cm (M/F) 1.5-2.5 LA Volume 19.50 mL LA Volume Index 9.90 mL/m2 (M/F) 16-34 M-Mode Dimensions RVDd 2.35 cm (0.9-2.6) LA Diam 3.98 cm (1.9-4.0) LVDd 5.46 cm (3.5-5.7) Ao Diam 3.91 cm (2.0-3.7) LVDs 3.53 cm (3.5-5.7) IVSd 1.14 cm (0.6-1.1) PWd 1.03 cm (0.6-1.1) EF (Teich) 64.20% FS 35.30% EDV (Teich) 145.00 mL TAPSE 1.52 (<1.7) ESV (Teich) 51.90 mL LV Diastology E Decel Time 267.00 (160-240 msec) E/A Ratio 0.47 MED E' 5.00 (< 7 cm/sec) MED A' 7.00 cm/s E'/MED E' Ratio 7.92 (>14) LAT E' 6.20 (<10 cm/sec) LAT A' 8.90 cm/s E/LAT E' Ratio 6.39 (>14) Aortic Valve LVOT Max 131.00 (70-110 cm/s) LVOT VTI 29.48 cm AoV Peak Juve. 288.00 (50-130 cm/s) AI PHT 589.00 ms AO Peak GR. 33.10 mmHg AO Mean GR. 19.10 (<5 mmHg) AO VTI 60.39 (18-25 cm) OXANA (VTI) 1.47 (2.5-4.5 cm2) Mitral Valve MV E Max Juve. 40.00 (40-130 cm/s) MV A Velocity 84.00 (40-130 cm/s) E/A Ratio 0.47 MV Decel. Time 267.00 (160-240 ms) MV PHT 78.00 ms Pulmonary Valve PV Peak Velocity 105.00 (50-150 cm/s) Tricuspid Valve TR P. Velocity 202.00 cm/s RAP Estimate 10.00 mmHg RVSP 26.40 mmHg Left Ventricle Left atrium is mildly enlarged, left ventricle is normal size, mild concentric left ventricular hypertrophy, visually estimated ejection fraction 55% with no regional wall motion abnormality, diastolic parameters are inconclusive. Right Ventricle Right atrium and right ventricle are normal size and contractility. Aortic Valve Aortic valve morphology is not well visualized, aortic root is not well visualized, aortic valve is thickened and calcified, the mean gradient across valve is 24 mmHg, valve area is 1.3 cm, represents moderate aortic stenosis, there is aortic insufficiency present which is difficult to quantify it is likely in severe range, a transesophageal echocardiogram is recommended. Mitral Valve Mitral valve grossly normal, there is mild mitral regurgitation. Tricuspid Valve Tricuspid grossly normal, there is mild tricuspid regurgitation, tricuspid regurgitation jet velocity is inadequate for calculation of the right ventricular systolic pressure. Pulmonic Valve Pulmonic valve is poorly visualized. Great Vessels Aortic root is normal size. Pericardium No significant pericardial effusion noted. Conclusion 1. Mildly enlarged left atrium, normal left ventricular size, mild concentric left ventricular hypertrophy, visually estimated ejection fraction 55% with no regional wall motion abnormality, diastolic parameters are inconclusive. 2. Abnormal aortic valve, aortic root is not well-visualized as described above, there is at least moderate aortic stenosis, aortic insufficiency is likely in severe range, a transesophageal echocardiogram is recommended. 3. No significant pericardial effusion noted. Electronically signed by : Noah Sweet, 11/15/2020 22:23:27
--- NOTE | 2020-11-15 14:55 | CT_ITS ---
PROCEDURE: CT CHEST WO CON CLINCAL INDICATION: typical angina COMPARISON: CT CTAC CTA-CHEST from 02/23/2017 TECHNIQUE: Unenhanced CT chest with axial, coronal, and sagittal multiplanar reformations. Dose modulation, automated exposure control, and/or iterative reconstruction were used for dose reduction. FINDINGS: LUNGS:Minor subsegmental atelectasis is noted in the bilateral lower lobes. No focal consolidation, pleural effusions or pneumothorax. There is peribronchial thickening and loss of tapering of the bronchials in the bilateral lower lobes. Calcified granuloma in the right lower lobe. No suspicious lung nodules. HEART / GREAT VESSELS Heart:The heart is normal size without pericardial effusion. Calcified aortic valve is noted. Vessels: Minor atherosclerotic vascular calcification is noted. The ascending and descending thoracic aorta are normal in caliber measuring approximately 3.8 centimeters in anteroposterior diameter. MEDIASTINUM Mediastinum: There is no hilar or mediastinal lymphadenopathy. Calcified right hilar lymph nodes. Abdomen:Moderate hiatus hernia is noted. Otherwise the visualized upper abdominal solid organs are unremarkable within the limitations of unenhanced study. BONES Bones: Multilevel degenerative changes of the visualized thoracic spine. Old rib fractures on the right. Thyroid: The visualized thyroid gland is unremarkable Other IMPRESSION: No acute intra thoracic abnormality. The thoracic aorta is normal in caliber. Aortic valve calcification is noted. Moderate hiatus hernia. Dictated by: Eual Roach 11/15/2020 16:47 Eula Roach in [facility] 11/15/2020 16:47
--- NOTE | 2020-11-15 14:55 | XR_ITS ---
PROCEDURE: XR PATELLA RT 2V CLINICAL INDICATION: patella fx COMPARISON: September 20, 2020 and October 14, 2020 FINDINGS: Healing fracture of the patella is noted with callus formation. No other acute fractures or dislocations. Mild osteopenia is noted. There is supra patellar and prepatellar soft tissue swelling. IMPRESSION: Healing fracture of the patella. No interval change. Dictated by: Eula Roach 11/15/2020 15:37 Eula Roach in [facility] 11/15/2020 15:37
== END ==
PROVIDERS: PCP Emergency Medicine; Visit Provider Physician Assistant
DX: R06.00 Dyspnea, unspecified (principal); R42 Dizziness and giddiness; R94.31 Abnormal electrocardiogram [ECG] [EKG]; I20.9 Angina pectoris, unspecified; I65.29 Occlusion and stenosis of unspecified carotid artery; I10 Essential (primary) hypertension; E78.5 Hyperlipidemia, unspecified; G47.33 Obstructive sleep apnea (adult) (pediatric); Z72.0 Tobacco use; S82.001A Unspecified fracture of right patella, initial encounter for closed fracture
CPT/HCPCS: 71250; 73560; 93306

== ENCOUNTER 2020-11-26 11:55 | Day surgery (SDC) | payer MEDICAID, SELFPAY ==
[2020-11-26 12:09] VITALS: BMI 26.9
--- NOTE | 2020-11-26 12:30 | CA_ITS ---
APPROVED REPORT EXAM: Comprehensive 2D, Doppler, and color-flow Echocardiogram Campaign Advisor: Anuradha Bolanos RT(R) Ht: 5 ft 8 in Wt: 177lbs BSA: 1.94 BP: 167/93 mmHg Indications: CP, COPD, smoker, syncope, HTN, SOB, hyperlipidemia, KYARA, GERD, seizures, anxiety, asthma Procedure After obtaining informed consent, patient underwent transesophageal echo in the [facility]. Type of Sedation : Conscious Sedation Sedation was administered by Kiel Melo C.R.N.A. Transesophageal probe was inserted and advanced into esophagus without difficulty by Dr. Mikey Chavez. The MARIN was performed without complications. Throughout the procedure, the blood pressure, pulse oximetry, cardiac rhythm, and rate were monitored. The patient tolerated the procedure without adverse effects. Recovery from conscious sedation was uneventful and vital signs were stable. Left Ventricle Left ventricle is normal size, mild concentric left ventricular hypertrophy, estimated ejection fraction 55% with no regional wall motion abnormality. Right Ventricle Right ventricle is normal size and contractility. Atria Left atrium is mildly enlarged, left atrial appendage free of thrombus, there is good appendage flow by spectral Doppler. Right atrium is normal size. Intra-atrial septum is intact, there is no flow across the interatrial septum, agitated saline contrast study fails 25 intracardiac shunt. Aortic Valve Aortic valve is bicuspid, with mild aortic stenosis, there is severe aortic insufficiency. Mitral Valve Mitral valve grossly normal, there is mild mitral regurgitation. Tricuspid Valve Tricuspid valve grossly normal, there is mild tricuspid regurgitation. Pulmonic Valve Pulmonic valve is grossly normal. Great Vessels Aortic root is normal size. Ascending aorta is mildly enlarged. Pericardium No significant pericardial effusion noted. Conclusion 1. Normal left ventricular size, mild concentric left ventricular hypertrophy, visually estimated ejection fraction 55% with no regional wall motion abnormality. 2. Bicuspid aortic valve with mild aortic stenosis, there is severe aortic insufficiency. 3. Agitated saline contrast study fails to identify intracardiac shunt. 4. Other ancillary findings as described above. Electronically signed by : Noah Sweet, 11/26/2020 13:52:34
[2020-11-26 13:03] LABS: Coronavirus 19, PCR Not Detected (NotDetected); Influenza A, PCR Not Detected (NotDetected); Influenza B, PCR Not Detected (NotDetected)
[2020-11-26 13:07] LABS: Basophils # 0.1 K/mm3 (0-0.2); Eosinophils # 0.5 K/mm3 (0.0-0.4); Eosinophils % 5.2 % (0.1-12.0); Hematocrit 45.3 % (42.0-52.0); Hemoglobin 15.3 g/dL (14.1-18.0); Lymphocytes # 2.2 K/mm3 (0.7-4.5); Lymphocytes % 20.7 % (10-50); Mean Corpuscular HGB Conc 33.8 g/dL (31.8-35.4); Mean Corpuscular Hemoglobin 28.7 pg (27.0-31.2); Mean Platelet Volume 7.3 fl (7.4-10.4); Monocytes # 0.7 K/mm3 (0.1-1.0); Monocytes % 6.9 % (1.7-9.3); Neutrophils # 6.9 K/mm3 (1.8-7.8); Neutrophils % 66.1 % (37.0-80.0); Platelet Count 285 K/mm3 (142-424); Red Blood Count 5.33 M/mm3 (4.60-6.20); Red Cell Distribution Width 15.8 % (11.5-17.5); White Blood Count 10.5 K/mm3 (4.8-10.8)
[2020-11-26 13:14] LABS: Chloride 95 mmol/L (98-107); Potassium 4.3 mmoL/L (3.5-5.1); Sodium 130 mmol/L (136-145)
[2020-11-26 13:17] LABS: Blood Urea Nitrogen 10 mg/dl (9-20); Creatinine Clearance Estimated 118 mL/min (50-200); Estimated Glomerular Filt Rate 100 ml/min (>60); GFR (African American) 121 ML/MIN (>60)
[2020-11-26 13:18] LABS: Anion Gap 17.3 mEq/L (5-15); Calcium 9.4 mg/dl (8.4-10.2); Carbon Dioxide 22 mmol/L (22.0-30.0); Glucose 98 mg/dl (74-100)
[2020-11-26 13:25] VITALS: BP 129/77; PULSE 96; RESP 20; O2SAT 97
[2020-11-26 13:35] VITALS: BP 130/80; PULSE 80; RESP 20; O2SAT 97
== END 2020-11-26 14:30 | disposition home or self-care (01) ==
LOC: CATHLAB 11:57
PROVIDERS: Internal Medicine; PCP Emergency Medicine; Visit Provider Internal Medicine Cardiovascular Disease
DX: I35.0 Nonrheumatic aortic (valve) stenosis (principal); I20.9 Angina pectoris, unspecified; E78.5 Hyperlipidemia, unspecified; I10 Essential (primary) hypertension; I35.1 Nonrheumatic aortic (valve) insufficiency; I65.29 Occlusion and stenosis of unspecified carotid artery; Z20.822 Contact with and (suspected) exposure to COVID-19
CPT/HCPCS: 80048; 85025; 93312; U0003

== ENCOUNTER 2020-11-30 08:54 | Day surgery (SDC) | payer MEDICAID, SELFPAY ==
[2020-11-30] VITALS (11 sets, daily range): BP systolic 104–163; BP diastolic 69–95; PULSE 96–109; RESP 18–20; TEMP 36.6; O2SAT 94–104; BMI 26.9
--- NOTE | 2020-11-30 | IR_ITS ---
APPROVED REPORT Patient Location: [facility] Supervisor: ANDRES Damon RT (R) PROCEDURES Right heart catheterization Left heart catheterization Left ventriculogram Selective coronary angiogram INDICATION Severe aortic insufficiency, Preoperative evaluation for aortic valve replacement, Pulmonary hypertension, COPD Informed consent was obtained prior to the procedure. COMPLICATIONS NONE Estimated Blood Loss: LESS THAN 10 ML TECHNIQUE One percent lidocaine was used to anesthetize the right anterior aspect of the right wrist. The right radial artery was accessed via the Seldinger technique and a 6 [place]une[place] hydrophilic sheath was placed in the right radial artery. Following this one percent lidocaine was used to anesthetize the right anterior aspect of the right neck. The right internal jugular vein was accessed via the Seldinger technique and a 7 [place] sheath was placed in the right internal jugular vein. Following this an arterial cocktail was administered using 5000U heparin, 2.5 mg verapamil, 1mg Lidocaine and 800mcg nitroglycerin into the right radial sheath. A trap catheter was used to perform left heart catheterization left ventriculogram and selective coronary angiography while a [place]-Imelda catheter was used to perform right heart catheterization. Saturations were obtained in the pulmonary artery and right atrium. At the end of the procedure the arterial sheath was removed good hemostasis was achieved using Traclet band. Patient was transferred to the postop holding area in stable condition for venous sheath removal. ANGIOGRAPHIC RESULTS The left main artery Normal The left anterior descending artery Normal The circumflex artery Normal The right coronary artery Dominant normal The HOWARD ventriculogram reveals Hyperdynamic 70 to 75% The left ventricular end-diastolic pressure 12 mmHg Right atrial pressure 10 mmHg Pulmonary artery pressure 25/15 mmHg Pulmonary occlusion pressure 12 mmHg Right atrial saturation 71% Pulmonary artery saturation 73% IMPRESSION Normal coronary arteries Hyperdynamic ventricle Mild pulmonary hypertension PLAN 1. Recommend pulmonary function tests given COPD 2. Will defer back to referring cardiology team to determine if and when patient requires aortic valve replacement 3. Continue medical management Electronically signed by : Damian Salazar, 11/30/2020 10:45:16
[2020-11-30 09:19] LABS: Coronavirus 19, PCR Not Detected (NotDetected); Influenza A, PCR Not Detected (NotDetected); Influenza B, PCR Not Detected (NotDetected)
[2020-11-30 14:35] LABS: CATHL Arterial O2 SAT 73 % (90-100); CATHL Venous O2 SAT 71 % (75-80)
== END 2020-11-30 13:27 | disposition home or self-care (01) ==
LOC: CATHLAB 08:55
PROVIDERS: PCP Emergency Medicine; Visit Provider Internal Medicine
DX: I35.1 Nonrheumatic aortic (valve) insufficiency (principal); I27.20 Pulmonary hypertension, unspecified; J44.9 Chronic obstructive pulmonary disease, unspecified; I35.0 Nonrheumatic aortic (valve) stenosis; I65.23 Occlusion and stenosis of bilateral carotid arteries; I10 Essential (primary) hypertension; E78.2 Mixed hyperlipidemia; Z79.899 Other long term (current) drug therapy; G43.909 Migraine, unspecified, not intractable, without status migrainosus; F17.210 Nicotine dependence, cigarettes, uncomplicated; Z20.822 Contact with and (suspected) exposure to COVID-19
CPT/HCPCS: 82810; 93460; 99152; C1725; C1769; C1894; J1644; Q9967; U0003

== ENCOUNTER → 2020-12-07 07:48 | Outpatient (CLI) | payer MEDICAID, SELFPAY ==
[2020-12-07 08:35] VITALS: PULSE 68; PULSE 71
== END ==
PROVIDERS: PCP Emergency Medicine; Visit Provider Specialist
DX: R55 Syncope and collapse (principal); J41.0 Simple chronic bronchitis
CPT/HCPCS: 94060; 94640; 94726; 94729

== ENCOUNTER → 2020-12-23 10:54 | Outpatient (CLI) | payer MEDICAID, SELFPAY ==
[2020-12-23 11:55] LABS: Chloride 94 mmol/L (98-107); Potassium 4.5 mmoL/L (3.5-5.1); Sodium 129 mmol/L (136-145)
[2020-12-23 11:58] LABS: Anion Gap 15.5 mEq/L (5-15); Blood Urea Nitrogen 6 mg/dl (9-20); Calcium 9.1 mg/dl (8.4-10.2); Carbon Dioxide 24 mmol/L (22.0-30.0); Estimated Glomerular Filt Rate 88 ml/min (>60); GFR (African American) 106 ML/MIN (>60); Glucose 92 mg/dl (74-100)
== END ==
PROVIDERS: Visit Provider Thoracic Surgery (Cardiothoracic Vascular Surgery)
DX: E87.1 Hypo-osmolality and hyponatremia (principal)
CPT/HCPCS: 36415; 80048

== ENCOUNTER 2021-01-13 05:31 | Emergency (ER) | payer MEDICAID, SELFPAY ==
[2021-01-13 05:21] VITALS: BP 138/85; PULSE 103; RESP 24; TEMP 36.6; O2SAT 94; BMI 25.8
--- NOTE | 2021-01-13 05:26 | ECG_ITS ---
APPROVED REPORT Exam: Resting ECG HR:103 bpm ECG Measurements Heart Rate 103 AXES MA 168 P 33 QRSd 108 QRS -9 QT 338 T 73 QTc 442 Conclusion Sinus tachycardia Otherwise normal ECG Electronically signed by : Rico Moe MD 01/14/2021 16:46:55
--- NOTE | 2021-01-13 05:26 | HMH.EDGENADL ---
ED Disposition Clinical Impression: COPD exacerbation, Atelectasis, Lung infiltrate Disposition: Home, Self-Care Condition on Discharge: Fair Instructions: DI for Chronic Obstructive Pulmonary Disease, DI for Pneumonia -- Adult Additional Instructions: Levaquin and prednisone as prescribed. Additional instructions for PNEUMONIA: See your physician as soon as possible for further evaluation. Return immediately if you have an uncontrollable fever greater than 102 degrees, difficulty breathing or shortness of breath, persistent vomiting, or severe chest pain. Prescriptions: levoFLOXacin [Levaquin 750mg tablet] 750 mg PO DAILY #7 tab Transmission Status: Pending to [facility] predniSONE [Prednisone 20mg Tab] 20 mg PO BID #10 tab Transmission Status: Pending to [facility] Referrals: Jasmeet Anne MD [Primary Care Provider] - - Critical Care Critical Care Time: No Attestation: On , the high probability of a clinically significant, sudden or life threatening deterioration of the following system(s) required my full and direct attention, intervention and personal management. The time I documented below is in addition to time spent performing reported procedures but includes the following listed in this critical care notation. Medical Decision Making - Medical Records Medical records reviewed: Yes: I reviewed the patient's medical records. MR Comment: Reviewed results of most recent heart cath here 11/30/2020, normal coronary arteries. Reviewed discharge summary from [facility]. Bioprosthetic aortic valve replacement by Dr. Preston on 01/05/2021 due to bicuspid aortic valve with severe aortic insufficiency. Complicated by postoperative fluid overload and respiratory failure. Discharge hemoglobin 9.6. Discharge sodium 124. Patient was on steroids in the hospital for his COPD, but was not discharged on steroids. - [place] Inquiry Pt receiving controlled substance: No Vital Signs: 01/13/21 05:21 01/13/21 05:40 01/13/21 06:00 Temperature 97.9 F Temperature Source Oral Pulse Rate 96 H Pulse Rate [Right] 103 H Respiratory Rate 24 20 Blood Pressure 121/73 Blood Pressure [Right Arm] 138/85 Blood Pressure Mean 89 Blood Pressure Mean [Right Arm] 102 02 Sat by Pulse Oximetry 94 L 93 L 94 L Oxygen Delivery Method Room Air Room Air 01/13/21 06:33 Temperature Temperature Source Pulse Rate 106 H Pulse Rate [Right] Respiratory Rate 22 Blood Pressure 164/93 H Blood Pressure [Right Arm] Blood Pressure Mean Blood Pressure Mean [Right Arm] 02 Sat by Pulse Oximetry 94 L Oxygen Delivery Method - Lab Data Lab Results 01/13/21 05:30: SARS-CoV-2 (PCR) Not detected, Influenza A Untype (PCR) Not detected, Influenza Type B (PCR) Not detected 01/13/21 05:30: C-Reactive Protein 179.8 H, NT-Pro-B Natriuret Pep 1180 H 01/13/21 05:30: WBC 15.0 H, RBC 3.79 L, Hgb 10.8 L, Hct 34.2 L, MCV 90.0, MCH 28.5, MCHC 31.6 L, RDW 15.0, Plt Count 425 H, MPV 7.5, Neut % (Auto) 77.0, Lymph % (Auto) 9.9 L, Morton % (Auto) 8.3, Eos % (Auto) 4.3, Baso % (Auto) 0.4, Neut # (Auto) 11.6 H, Lymph # (Auto) 1.5, Morton # (Auto) 1.3 H, Eos # (Auto) 0.6 H, Baso # (Auto) 0.1, Total Counted 100, Neutrophils % (Manual) 80 H, Lymphocytes % (Manual) 9 L, Monocytes % (Manual) 7, Eosinophils % (Manual) 4 H, Platelet Estimate Normal, Hypochromasia 1+ 01/13/21 05:30: Sodium 123 L, Potassium 4.6, Chloride 88 L, Carbon Dioxide 25, Anion Gap 14.6, BUN 8 L, Creatinine 0.70, Estimated Creat Clear 130, Estimated GFR 117, Est GFR ( Amer) 142, Glucose 150 H, Calcium 9.0, Total Bilirubin 0.6, AST 54, ALT 31, Alkaline Phosphatase 232 H, Troponin I 0.22 H, Total Protein 7.1, Albumin 3.7, Globulin 3.4 H, Albumin/Globulin Ratio 1.1 01/13/21 05:30: Lactate 1.0 01/13/21 05:45: Urine Color Yellow, Urine Appearance Clear, Urine pH 6.0, Ur Specific [place] 1.010, Urine Protein Negative, Urine Glucose (UA) Negative, Urine [place]
--- NOTE | 2021-01-13 05:30 | XR_ITS ---
PROCEDURE INFORMATION: Exam: XR Chest Exam date and time: 01/13/2021 5:30 AM Age: 55 years old Clinical indication: Shortness of breath; Prior surgery; Surgery date: 3-7 days post-operative; Patient HX: Aortic valve replaced 1 week ago with pig valve, SOA for 1 day TECHNIQUE: Imaging protocol: XR of the chest. Views: 1 view. COMPARISON: CT CHEST WO CON 11/15/2020 3:26 PM FINDINGS: Tubes, catheters and devices: Electronic device projecting over the left mid lung. Lungs: Poorly defined infiltrates at both lung bases. Pleural spaces: Unremarkable. No pleural effusion. No pneumothorax. Heart/Mediastinum: Surgical changes in the mediastinum. Cardiac silhouette is at the upper limit of normal. Bones/joints: Degenerative changes at the right shoulder. IMPRESSION: Probable pneumonia infiltrates and atelectasis at both lung bases.
[2021-01-13 05:40] VITALS: O2SAT 93
[2021-01-13 05:43] LABS: Coronavirus 19, PCR Not Detected (NotDetected); Influenza A, PCR Not Detected (NotDetected); Influenza B, PCR Not Detected (NotDetected)
[2021-01-13 05:47] LABS: Basophils # 0.1 K/mm3 (0-0.2); Basophils % 0.4 % (0.1-2.0); Eosinophils # 0.6 K/mm3 (0.0-0.4); Eosinophils % 4.3 % (0.1-12.0); Hematocrit 34.2 % (42.0-52.0); Hemoglobin 10.8 g/dL (14.1-18.0); Lymphocytes # 1.5 K/mm3 (0.7-4.5); Lymphocytes % 9.9 % (10-50); Mean Corpuscular HGB Conc 31.6 g/dL (31.8-35.4); Mean Corpuscular Hemoglobin 28.5 pg (27.0-31.2); Mean Platelet Volume 7.5 fl (7.4-10.4); Monocytes # 1.3 K/mm3 (0.1-1.0); Monocytes % 8.3 % (1.7-9.3); Neutrophils # 11.6 K/mm3 (1.8-7.8); Platelet Count 425 K/mm3 (142-424); Red Blood Count 3.79 M/mm3 (4.60-6.20)
[2021-01-13 05:49] LABS: MANUAL DIFFERENTIAL MANUAL DIFFERENTIAL (MANUAL DIFF)
[2021-01-13 05:53] LABS: Alanine Aminotransferase 31 U/L (12-78); Albumin Level 3.7 g/dl (3.5-5.0); Albumin/Globulin Ratio 1.1 (1.1-1.8); Alkaline Phosphatase 232 U/L (38-126); Anion Gap 14.6 mEq/L (5-15); Aspartate Amino Transferase 54 U/L (17-59); Bilirubin,Total 0.6 mg/dl (0.2-1.3); Blood Urea Nitrogen 8 mg/dl (9-20); Carbon Dioxide 25 mmol/L (22.0-30.0); Chloride 88 mmol/L (98-107); Creatinine Clearance Estimated 130 mL/min (50-200); Estimated Glomerular Filt Rate 117 ml/min (>60); GFR (African American) 142 ML/MIN (>60); Globulin 3.4 g/dL (1.3-3.2); Glucose 150 mg/dl (74-100); Potassium 4.6 mmoL/L (3.5-5.1); Sodium 123 mmol/L (136-145); Total Protein,Serum 7.1 g/dl (6.3-8.2)
--- NOTE | 2021-01-13 05:56 | CT_ITS ---
PROCEDURE INFORMATION: Exam: CTA Chest With Contrast Exam date and time: 01/13/2021 5:56 AM Age: 55 years old Clinical indication: Shortness of breath; Additional info: SOA, recent aortic valve replacement 01/05 TECHNIQUE: Imaging protocol: Computed tomographic angiography of the chest with contrast. 3D rendering (Not supervised by radiologist): MIP and/or 3D reconstructed images were created by the technologist. Radiation optimization: All CT scans at this facility use at least one of these dose optimization techniques: automated exposure control; mA and/or kV adjustment per patient size (includes targeted exams where dose is matched to clinical indication); or iterative reconstruction. Contrast material: ISOVUE 370; Contrast volume: 70 ml; Contrast route: INTRAVENOUS (IV); COMPARISON: [facility] CTA-CHEST 02/23/2017 6:53 PM FINDINGS: Pulmonary arteries: Normal. No pulmonary emboli. Aorta: There is aneurysmal dilatation of the ascending thoracic aorta, measuring up to 4.0 cm, no evidence of dissection. Lungs: Atelectasis and linear scarring at the lung bases. Lungs are otherwise clear. There is a calcified granuloma in the right lower lung. Pleural spaces: Bilateral pleural effusions, right greater than left. Heart: Cardiomegaly with an aortic valve prosthesis. Mediastinal space: There is fluid in a dilated esophagus with probable gastroesophageal reflux. Lymph nodes: Calcified lymph nodes in the right hilum may be due to prior granulomatous disease or treated lymphoma. Stomach and bowel: There is a large hiatal hernia containing half the stomach. Bones/joints: There are multiple healed rib fractures. Soft tissues: Postsurgical air in the superficial soft tissues of the abdominal wall. IMPRESSION: Atelectasis and scarring with possible pneumonia infiltrates at lung bases. Small bilateral pleural effusions. Cardiomegaly with an aortic valve prosthesis and aneurysmal dilatation of the ascending thoracic aorta. Large hiatal hernia with gastroesophageal reflux into the upper esophagus places the patient at risk for aspiration. Evidence of prior granulomatous disease.
[2021-01-13 05:58] LABS: C-Reactive Protein 179.8 mg/L (0-4)
[2021-01-13 06:00] VITALS: BP 121/73; PULSE 96; RESP 20; O2SAT 94
[2021-01-13 06:03] LABS: Microscopic, Urine URINE MICROSCOPIC (MICROSCOPIC)
[2021-01-13 06:10] LABS: Appearance,Urine CLEAR (Clear); Bilirubin,Urine Negative (Negative); Blood, Urine Negative (Negative); Color,Urine YELLOW (Yellow); Glucose,Urine (UA) Negative (Negative); Ketones,Urine Negative (Negative); Leukocyte Esterase,Urine Negative (Negative); Nitrate,Urine Negative (Negative); Protein,Urine Negative (Negative)
[2021-01-13 06:11] LABS: Troponin I 0.22 ng/ml (0.00-0.034)
[2021-01-13 06:18] LABS: Eosinophils % 4 % (0-3); Hypochromasia 1+; Lymphocytes % 9 % (10-50); Monocytes % 7 % (2-9); Neutrophils % 80 % (42-76); Platelet Estimate Normal; Total Cells Counted 100
[2021-01-13 06:21] LABS: NT Pro Brain Natriuretic Pep. 1180 pg/mL (0-125)
[2021-01-13 06:33] VITALS: BP 164/93; PULSE 106; RESP 22; O2SAT 94
[2021-01-13 08:06] VITALS: BP 131/78; PULSE 102; RESP 24; TEMP 37.2; O2SAT 98
== END 2021-01-13 08:11 | disposition home or self-care (01) ==
PROVIDERS: Emergency Provider Emergency Medicine; PCP Emergency Medicine
DX: J44.1 Chronic obstructive pulmonary disease with (acute) exacerbation (principal); J98.11 Atelectasis; R91.8 Other nonspecific abnormal finding of lung field; Z20.822 Contact with and (suspected) exposure to COVID-19; K21.9 Gastro-esophageal reflux disease without esophagitis; Z95.2 Presence of prosthetic heart valve; I10 Essential (primary) hypertension; E78.5 Hyperlipidemia, unspecified; Z88.0 Allergy status to penicillin; F17.210 Nicotine dependence, cigarettes, uncomplicated
CPT/HCPCS: 71045; 71275; 80053; 81001; 83605; 83880; 84484; 85007; 85025; 86140; 87040; 93005; 96365; 96375; 99283; C9803; J1956; Q9967; U0003; U0005

== ENCOUNTER → 2021-01-19 09:47 | Outpatient (CLI) | payer MEDICAID, SELFPAY ==
--- NOTE | 2021-01-19 09:48 | CA_ITS ---
APPROVED REPORT EXAM: Comprehensive 2D, Doppler, and color-flow Echocardiogram Flatwork Washer: Shefali Hernandez CRT Ht: 5 ft 8 in Wt: 174lbs BSA: 1.93 BP: 126/72 mmHg Indications: S/P AVR 01/05/21 COPD, SOB, ETOH Abuse, cva, vera, smoker, non-compliant 2D Dimensions LVOT 2.01 cm (M/F) 1.5-2.5 M-Mode Dimensions RVDd 3.07 cm (0.9-2.6) LA Diam 2.87 cm (1.9-4.0) LVDd 5.23 cm (3.5-5.7) Ao Diam 4.71 cm (2.0-3.7) LVDs 3.87 cm (3.5-5.7) IVSd 1.55 cm (0.6-1.1) PWd 0.95 cm (0.6-1.1) EF (Teich) 50.70% FS 26.00% EDV (Teich) 131.20 mL TAPSE 1.49 (<1.7) ESV (Teich) 64.70 mL LV Diastology E Decel Time 227.00 (160-240 msec) E/A Ratio 0.66 MED E' 3.90 (< 7 cm/sec) MED A' 6.50 cm/s E'/MED E' Ratio 14.87 (>14) LAT E' 4.10 (<10 cm/sec) LAT A' 9.40 cm/s E/LAT E' Ratio 14.15 (>14) Aortic Valve LVOT Max 150.00 (70-110 cm/s) LVOT VTI 33.74 cm AoV Peak Juve. 161.00 (50-130 cm/s) AI PHT 392.00 ms AO Peak GR. 10.40 mmHg AO Mean GR. 6.10 (<5 mmHg) AO VTI 35.26 (18-25 cm) OXANA (VTI) 3.04 (2.5-4.5 cm2) Mitral Valve MV E Max Juve. 58.00 (40-130 cm/s) MV A Velocity 88.00 (40-130 cm/s) E/A Ratio 0.66 MV Decel. Time 227.00 (160-240 ms) MV PHT 66.00 ms Pulmonary Valve PV Peak Velocity 73.00 (50-150 cm/s) Tricuspid Valve TR P. Velocity 70.00 cm/s RAP Estimate 10.00 mmHg RVSP 12.00 mmHg Left Ventricle Left atrium is mildly enlarged, left ventricle is normal size, mild concentric left ventricular hypertrophy, visually estimated ejection fraction 55% with no regional wall motion abnormality, grade 1 diastolic dysfunction seen without tissue Doppler evidence of raise left atrial pressure. Right Ventricle Right atrium and right ventricle are normal size and contractility. Aortic Valve Aortic valve is minimally thickened and fibrosed, there is no aortic stenosis, there is trace aortic insufficiency. Mitral Valve Mitral valve leaflets are minimally thickened, there is mild mitral regurgitation. Tricuspid Valve Tricuspid valve grossly normal, there is mild tricuspid valve Pulmonic Valve Pulmonic valve is poorly visualized. Great Vessels Aortic root is normal size. Pericardium No significant pericardial effusion noted. Conclusion 1. Mildly enlarged left atrium, normal left ventricular size, mild concentric left ventricular hypertrophy, visually estimated ejection fraction 55% with no regional wall motion abnormality, grade 1 diastolic dysfunction seen without tissue Doppler evidence of raise left atrial pressure. 2. Mild mitral and tricuspid regurgitation. 3. No significant pericardial effusion noted. Electronically signed by : Noah Sweet MD 01/20/2021 12:04:00
== END ==
PROVIDERS: PCP Emergency Medicine; Visit Provider Internal Medicine Cardiovascular Disease
DX: R06.00 Dyspnea, unspecified (principal); I35.1 Nonrheumatic aortic (valve) insufficiency; I10 Essential (primary) hypertension; I48.0 Paroxysmal atrial fibrillation; E78.5 Hyperlipidemia, unspecified; G47.33 Obstructive sleep apnea (adult) (pediatric); I65.29 Occlusion and stenosis of unspecified carotid artery; J44.9 Chronic obstructive pulmonary disease, unspecified
CPT/HCPCS: 93306

== ENCOUNTER → 2021-02-04 10:40 | Outpatient (CLI) | payer MEDICAID, SELFPAY ==
[2021-02-04 11:01] LABS: Basophils # 0.1 K/mm3 (0-0.2); Basophils % 0.8 % (0.1-2.0); Eosinophils # 0.8 K/mm3 (0.0-0.4); Eosinophils % 7.4 % (0.1-12.0); Hematocrit 38.3 % (42.0-52.0); Hemoglobin 12.3 g/dL (14.1-18.0); Lymphocytes # 2.8 K/mm3 (0.7-4.5); Lymphocytes % 25.9 % (10-50); Mean Corpuscular HGB Conc 32.1 g/dL (31.8-35.4); Mean Corpuscular Hemoglobin 28.5 pg (27.0-31.2); Mean Platelet Volume 8.2 fl (7.4-10.4); Monocytes # 0.6 K/mm3 (0.1-1.0); Monocytes % 5.8 % (1.7-9.3); Neutrophils # 6.6 K/mm3 (1.8-7.8); Neutrophils % 60.1 % (37.0-80.0); Platelet Count 305 K/mm3 (142-424); Red Blood Count 4.31 M/mm3 (4.60-6.20); Red Cell Distribution Width 16.1 % (11.5-17.5); White Blood Count 10.9 K/mm3 (4.8-10.8)
[2021-02-04 11:35] LABS: Chloride 90 mmol/L (98-107)
[2021-02-04 11:36] LABS: Potassium 4.6 mmoL/L (3.5-5.1); Sodium 127 mmol/L (136-145)
[2021-02-04 11:39] LABS: Anion Gap 15.6 mEq/L (5-15); Blood Urea Nitrogen 3 mg/dl (9-20); Calcium 8.9 mg/dl (8.4-10.2); Carbon Dioxide 26 mmol/L (22.0-30.0); Estimated Glomerular Filt Rate 140 ml/min (>60); GFR (African American) 169 ML/MIN (>60); Glucose 101 mg/dl (74-100)
== END ==
PROVIDERS: Visit Provider Internal Medicine Cardiovascular Disease
DX: R06.00 Dyspnea, unspecified (principal); I48.0 Paroxysmal atrial fibrillation; I35.1 Nonrheumatic aortic (valve) insufficiency; I10 Essential (primary) hypertension; I65.29 Occlusion and stenosis of unspecified carotid artery; E78.5 Hyperlipidemia, unspecified; J44.9 Chronic obstructive pulmonary disease, unspecified; G47.33 Obstructive sleep apnea (adult) (pediatric)
CPT/HCPCS: 36415; 80048; 85025

== ENCOUNTER → 2021-02-16 14:04 | Outpatient (CLI) | payer MEDICAID, SELFPAY | PROVIDERS: PCP Emergency Medicine; Visit Provider Nurse Practitioner | DX: Z20.822 Contact with and (suspected) exposure to COVID-19 (principal) | CPT/HCPCS: C9803; U0003; U0005 ==

== ENCOUNTER → 2021-02-24 08:11 | Outpatient (CLI) | payer MEDICAID, SELFPAY | PROVIDERS: PCP Emergency Medicine; Visit Provider Specialist | DX: R56.9 Unspecified convulsions (principal); R55 Syncope and collapse ==

== ENCOUNTER → 2021-03-08 09:06 | Outpatient (CLI) | payer MEDICAID, SELFPAY ==
--- NOTE | 2021-03-08 09:21 | CT_ITS ---
PROCEDURE: CT ANGIO CHEST CLINCIAL INDICATION: dilated thoracic aorta. COMPARISON: CT CT ANGIO CHEST PE PROTOCOL from 01/13/2021 TECHNIQUE: IV Contrast: 70ML Isovue 370 Axial images obtained with sagittal and coronal reformats. All CT scans at the facility use one or more dose reduction, viz: automated exposure control, ma/kV adjustment per patient size (including targeted exams where dose is matched to indication, i.e. head), or iterative reconstruction technique. FINDINGS: HEART AND MEDIASTINAL STRUCTURES: Mild prominence of the ascending aorta at 4 cm not significantly changed. Status post aortic valve replacement. No evidence of aortic dissection. No mediastinal or hilar mass. Post sternotomy changes there is mild prominence of the at the median sternotomy site with minimal separation of the sternotomy fragments. There is also some mild stranding of the soft tissues anterior and posterior to the median sternotomy which has developed since the previous exam. No definite fluid collection is apparent. LUNGS AND PLEURAL SPACES: There has been interval resolution of the bilateral pleural effusions.. Parenchymal opacity is present in the right lung base medially and may be due to some residual atelectatic change or small area of consolidation. Follow-up may confirm. Minimal atelectatic or fibrotic changes are present in the left lung base posteriorly and lingula. BONY STRUCTURES: There is mild wedging of T4 not significantly changed. Degenerative changes are present in the thoracic spine UPPER ABDOMEN: Diffuse fatty liver. Small hiatal hernia. ADDITIONAL FINDINGS: Gynecomastia IMPRESSION: 1. No change in the mild dilatation of the ascending aorta. 2. Status post median sternotomy with aortic valve replacement. Since the previous exam there is now mild separation of the sternal fragments with soft tissue stranding both anterior and posterior to the sternum. Has the patient had interval sternal surgery since the previous exam?. This could explain these findings. If there has not been previous surgery or sternal trauma, then early sternal dehiscence with infection is a consideration. 3. Resolution of small bilateral pleural effusions with some minimal atelectatic or fibrotic changes in the lung bases and a small area of consolidation or atelectasis in the medial aspect of the posterior costophrenic sulcus. Follow-up may exclude the possibility of a developing nodule at this region. Dictated by: Jeffery De Souza MD 03/09/2021 09:00 Jeffery De Souza MD in [facility] 03/09/2021 09:00
[2021-03-08 09:36] LABS: Chloride 84 mmol/L (98-107); Potassium 4.5 mmoL/L (3.5-5.1); Sodium 122 mmol/L (136-145)
[2021-03-08 09:39] LABS: Anion Gap 15.5 mEq/L (5-15); Blood Urea Nitrogen 5 mg/dl (9-20); Calcium 9.2 mg/dl (8.4-10.2); Carbon Dioxide 27 mmol/L (22.0-30.0); Estimated Glomerular Filt Rate 117 ml/min (>60); GFR (African American) 142 ML/MIN (>60); Glucose 100 mg/dl (74-100)
== END ==
PROVIDERS: Physician Assistant; PCP Emergency Medicine; Visit Provider Nurse Practitioner Family
DX: R06.00 Dyspnea, unspecified (principal); I20.9 Angina pectoris, unspecified; I77.89 Other specified disorders of arteries and arterioles; I10 Essential (primary) hypertension; E78.5 Hyperlipidemia, unspecified; I35.0 Nonrheumatic aortic (valve) stenosis; I35.1 Nonrheumatic aortic (valve) insufficiency; I65.29 Occlusion and stenosis of unspecified carotid artery; R93.1 Abnormal findings on diagnostic imaging of heart and coronary circulation; R93.89 Abnormal findings on diagnostic imaging of other specified body structures
CPT/HCPCS: 36415; 71275; 80048; Q9967

== ENCOUNTER → 2021-03-09 11:10 | Outpatient (CLI) | payer MEDICAID, SELFPAY ==
[2021-03-09 11:28] LABS: Basophils # 0.2 K/mm3 (0-0.2); Basophils % 1.4 % (0.1-2.0); Eosinophils # 1.5 K/mm3 (0.0-0.4); Hematocrit 42.6 % (42.0-52.0); Hemoglobin 13.6 g/dL (14.1-18.0); Lymphocytes # 2.5 K/mm3 (0.7-4.5); Lymphocytes % 22.2 % (10-50); Mean Corpuscular HGB Conc 31.9 g/dL (31.8-35.4); Mean Corpuscular Volume 84.7 fl (80-94); Monocytes # 1.2 K/mm3 (0.1-1.0); Monocytes % 10.4 % (1.7-9.3); Platelet Count 338 K/mm3 (142-424); Red Blood Count 5.03 M/mm3 (4.60-6.20); White Blood Count 11.4 K/mm3 (4.8-10.8)
[2021-03-09 11:34] LABS: Chloride 86 mmol/L (98-107); Potassium 4.9 mmoL/L (3.5-5.1); Sodium 124 mmol/L (136-145)
[2021-03-09 11:37] LABS: Alanine Aminotransferase 118 U/L (12-78); Albumin Level 4.6 g/dl (3.5-5.0); Albumin/Globulin Ratio 1.2 (1.1-1.8); Alkaline Phosphatase 147 U/L (38-126); Anion Gap 17.9 mEq/L (5-15); Aspartate Amino Transferase 278 U/L (17-59); Bilirubin,Total 0.6 mg/dl (0.2-1.3); Blood Urea Nitrogen 5 mg/dl (9-20); Calcium 9.1 mg/dl (8.4-10.2); Carbon Dioxide 25 mmol/L (22.0-30.0); Estimated Glomerular Filt Rate 117 ml/min (>60); GFR (African American) 142 ML/MIN (>60); Globulin 3.8 g/dL (1.3-3.2); Glucose 105 mg/dl (74-100); Total Protein,Serum 8.4 g/dl (6.3-8.2)
== END ==
PROVIDERS: Visit Provider Nurse Practitioner Family
DX: J98.11 Atelectasis (principal); T81.32XA Disruption of internal operation (surgical) wound, not elsewhere classified, initial encounter
CPT/HCPCS: 36415; 80053; 85025

== ENCOUNTER → 2021-03-10 09:54 | Outpatient (CLI) | payer MEDICAID, SELFPAY | PROVIDERS: PCP Emergency Medicine; Visit Provider Internal Medicine | DX: R07.9 Chest pain, unspecified (principal); R06.00 Dyspnea, unspecified ==

== ENCOUNTER → 2021-03-11 08:55 | Outpatient (CLI) | payer MEDICAID, SELFPAY ==
--- NOTE | 2021-03-11 08:55 | NM_ITS ---
PROCEDURE: NM BONE 3 PHASE CLINICAL INDICATION: abnormal sternal chest CTA, recent open heart surg COMPARISON: CT CT ANGIO CHEST from 03/08/2021 FINDINGS: Dose: 25.1 mCi technetium MDP Blood flow images are limited with only 4 images from the blood pool available. No definite increased activity at the sternum. Blood pool images are unremarkable. Delayed images show symmetric increased activity on both right and left aspect of the sternum with photopenic area at the sternotomy site. IMPRESSION: Exam is somewhat limited without all of the blood flow images however, overall findings are NOT compatible with osteomyelitis of the sternum. Dictated by: Jeffery De Souza MD 03/14/2021 12:15 Jeffery De Souza MD in [facility] 03/14/2021 12:15
== END ==
PROVIDERS: PCP Emergency Medicine; Visit Provider Internal Medicine
DX: R06.00 Dyspnea, unspecified (principal); R07.9 Chest pain, unspecified; R93.89 Abnormal findings on diagnostic imaging of other specified body structures
CPT/HCPCS: 78315; A9503

== ENCOUNTER 2021-03-13 12:16 | Observation (INO) | payer MEDICAID, SELFPAY ==
[2021-03-13] VITALS (13 sets, daily range): BP systolic 58–139; BP diastolic 37–86; PULSE 75–101; RESP 17–20; TEMP 36.4–36.6; O2SAT 90–100; BMI 25.0
--- NOTE | 2021-03-13 12:31 | XR_ITS ---
PROCEDURE INFORMATION: Exam: XR Chest Exam date and time: 03/13/2021 12:31 PM Age: 55 years old Clinical indication: Cough and other: Possible covid; Patient HX: Cough, smoker, possible covid. TECHNIQUE: Imaging protocol: XR of the chest. AP portable upright exam 12:43 p.m. Views: 1 view. COMPARISON: CR XR CHEST PORTABLE 01/13/2021 5:36 AM FINDINGS: Lungs: Improved aeration of the lower lungs compared with previous chest x-ray of 01/13/2021, with minimal residual interstitial prominence. No focal consolidation. Normal lung volumes. Pleural spaces: Unremarkable. No pleural effusion. No pneumothorax. Heart/Mediastinum: Chronic enlarged cardiac silhouette. Electronic device projecting over the left chest on the prior exam has been removed in the interval. Bones/joints: Sternotomy wires. Osteopenia. Arthritic changes at the right shoulder and acromioclavicular joint, findings suggestive of underlying chronic right rotator cuff tear. Spinal degenerative changes. Soft tissues: No acute findings in the soft tissues. IMPRESSION: 1. Improved aeration of the lower lungs compared with 01/13/2021. 2. No definite findings of COVID-19 pneumonia; however, ground-glass opacities of COVID-19 pneumonia can be radiographically occult on plain chest x-ray. If further imaging is warranted by the clinical findings or course, chest CT would be a more sensitive exam. 3. Multiple additional nonemergency and chronic findings as above.
--- NOTE | 2021-03-13 13:02 | HMH.EDGENADL ---
ED Disposition Clinical Impression: Alcohol abuse with alcohol-induced disorder Disposition: Admitted As Inpatient Condition on Discharge: Fair Referrals: Jasmeet Anne MD [Primary Care Provider] - - Critical Care Critical Care Time: No Attestation: On 03/13/21, the high probability of a clinically significant, sudden or life threatening deterioration of the following system(s) required my full and direct attention, intervention and personal management. The time I documented below is in addition to time spent performing reported procedures but includes the following listed in this critical care notation. Medical Decision Making - Medical Records Medical records reviewed: Yes: I reviewed the patient's medical records. - [place] Inquiry Pt receiving controlled substance: No Vital Signs: 03/13/21 12:17 03/13/21 13:30 03/13/21 13:46 Temperature 97.5 F L Temperature Source Oral Pulse Rate 89 82 Pulse Rate [Left Radial] 101 H Respiratory Rate 18 18 18 Blood Pressure 62/37 L 58/38 L Blood Pressure [Right Arm] 85/58 L Blood Pressure Mean 45 Blood Pressure Mean [Right Arm] 67 Blood Pressure Source [Right Arm] Automatic Cuff Blood Pressure Position [Right Arm] Sitting 02 Sat by Pulse Oximetry 98 97 90 L Oxygen Delivery Method Room Air 03/13/21 13:52 03/13/21 14:00 Temperature Temperature Source Pulse Rate 82 80 Pulse Rate [Left Radial] Respiratory Rate 18 18 Blood Pressure 66/45 L 76/47 L Blood Pressure [Right Arm] Blood Pressure Mean 49 59 Blood Pressure Mean [Right Arm] Blood Pressure Source [Right Arm] Blood Pressure Position [Right Arm] 02 Sat by Pulse Oximetry Oxygen Delivery Method - Lab Data Lab Results 03/13/21 13:05: WBC 9.3, RBC 4.88, Hgb 13.2 L, Hct 41.2 L, MCV 84.4, MCH 27.1, MCHC 32.1, RDW 16.0, Plt Count 307, MPV 8.2, Neut % (Auto) 64.9, Lymph % (Auto) 22.2, Parke % (Auto) 6.4, Eos % (Auto) 5.3, Baso % (Auto) 1.2, Neut # (Auto) 6.1, Lymph # (Auto) 2.1, Parke # (Auto) 0.6, Eos # (Auto) 0.5 H, Baso # (Auto) 0.1 03/13/21 13:05: Sodium 124 L, Potassium 4.9, Chloride 87 L, Carbon Dioxide 19 L, Anion Gap 22.9 H, BUN 5 L, Creatinine 1.40 H, Estimated Creat Clear 63, Estimated GFR 53 L, Est GFR ( Amer) 64, Glucose 107 H, Calcium 9.1, Total Bilirubin 0.9, AST 182 H, ALT 95 H, Alkaline Phosphatase 132 H, Total Protein 8.3 H, Albumin 4.6, Globulin 3.7 H, Albumin/Globulin Ratio 1.2 03/13/21 13:05: Plasma/Serum Alcohol 18 H Result diagrams: 03/13/21 13:05 03/13/21 13:05 Orders (Tests/Meds): ED MEDICATIONS Generic Name Dose Route Start Last Admin Trade Name Freq PRN Reason Stop Dose Admin Multivitamins 10 ml/ Thiamine 1,015 mls @ 150 mls/hr 03/13/21 13:00 03/13/21 13:09 HCl 100 mg/ Magnesium Sulfate IV 03/13/21 19:45 150 mls/hr 2 gm/ Lactated Ringer's .[id number] TRACEY Administration Sodium Chloride 10 ml 03/13/21 12:31 Sodium Chloride 0.9% 10ml Vial IV 04/12/21 12:30 NEEDED PRN to Dilute Lorazepam inj Discontinued Medications Generic Name Dose Route Start Last Admin Trade Name Freq PRN Reason Stop Dose Admin Folic Acid 1 mg 03/13/21 12:52 03/13/21 13:09 Folic Acid 1mg Tablet PO 03/13/21 12:53 1 mg ONCE ONE Administration Lorazepam 1 mg 03/13/21 12:31 Lorazepam 2mg/Ml Vial IV 03/13/21 12:32 ONCE ONE ORDERS Category Date Time Status Brain Natriuretic Peptide Stat Lab 03/13/21 14:24 Ordered Comprehensive Metabolic Panel Stat Lab 03/13/21 13:05 Results Lipase Stat Lab 03/13/21 13:05 Results PTT [Activated Partial Thrombo Time] Stat Lab 03/13/21 14:24 Ordered Prothrombin Time INR Stat Lab 03/13/21 14:24 Ordered Rapid PCR Covid and Flu A/B Stat Lab 03/13/21 14:09 Ordered Trop I [Troponin I] Stat Lab 03/13/21 14:24 Ordered Troponin I Q3H Lab 03/13/21 17:30 Ordered Troponin I Q3H Lab 03/13/21 20:30 Ordered - Radiology Data #1 Image(s): Chest Image Reviewed: Yes
[2021-03-13 13:17] LABS: Basophils # 0.1 K/mm3 (0-0.2); Basophils % 1.2 % (0.1-2.0); Eosinophils # 0.5 K/mm3 (0.0-0.4); Eosinophils % 5.3 % (0.1-12.0); Hematocrit 41.2 % (42.0-52.0); Hemoglobin 13.2 g/dL (14.1-18.0); Lymphocytes # 2.1 K/mm3 (0.7-4.5); Lymphocytes % 22.2 % (10-50); Mean Corpuscular HGB Conc 32.1 g/dL (31.8-35.4); Mean Corpuscular Hemoglobin 27.1 pg (27.0-31.2); Mean Corpuscular Volume 84.4 fl (80-94); Mean Platelet Volume 8.2 fl (7.4-10.4); Monocytes # 0.6 K/mm3 (0.1-1.0); Monocytes % 6.4 % (1.7-9.3); Neutrophils # 6.1 K/mm3 (1.8-7.8); Neutrophils % 64.9 % (37.0-80.0); Platelet Count 307 K/mm3 (142-424); Red Blood Count 4.88 M/mm3 (4.60-6.20); White Blood Count 9.3 K/mm3 (4.8-10.8)
[2021-03-13 13:24] LABS: Chloride 87 mmol/L (98-107); Potassium 4.9 mmoL/L (3.5-5.1); Sodium 124 mmol/L (136-145)
[2021-03-13 13:27] LABS: Alanine Aminotransferase 95 U/L (12-78); Albumin Level 4.6 g/dl (3.5-5.0); Albumin/Globulin Ratio 1.2 (1.1-1.8); Alkaline Phosphatase 132 U/L (38-126); Anion Gap 22.9 mEq/L (5-15); Aspartate Amino Transferase 182 U/L (17-59); Bilirubin,Total 0.9 mg/dl (0.2-1.3); Blood Urea Nitrogen 5 mg/dl (9-20); Calcium 9.1 mg/dl (8.4-10.2); Carbon Dioxide 19 mmol/L (22.0-30.0); Creatinine Clearance Estimated 63 mL/min (50-200); Estimated Glomerular Filt Rate 53 ml/min (>60); GFR (African American) 64 ML/MIN (>60); Globulin 3.7 g/dL (1.3-3.2); Glucose 107 mg/dl (74-100); Total Protein,Serum 8.3 g/dl (6.3-8.2)
[2021-03-13 13:43] LABS: Ethyl Alcohol 18 mg/dl (0-10)
--- NOTE | 2021-03-13 13:54 | PC.NURSE ---
notified ER MD of low bp, gave verbal order for NS 1L IV fluid bolus
--- NOTE | 2021-03-13 14:19 | PC.NURSE ---
arch cushion skiving machine operator paging dr. borges
--- NOTE | 2021-03-13 14:23 | PC.NURSE ---
JOSE MUÑIZ speaking with dr. borges at this time
[2021-03-13 14:46] LABS: Coronavirus 19, PCR Not Detected (NotDetected); Influenza A, PCR Not Detected (NotDetected); Influenza B, PCR Not Detected (NotDetected)
[2021-03-13 14:58] LABS: NT Pro Brain Natriuretic Pep. 5570 pg/mL (0-125)
--- NOTE | 2021-03-13 14:59 | HMH.PHAVTE ---
[facility] Pharmacy VTE Monitoring - Patient Demographics Admission date: 03/13/21 Report Date: 03/13/21 Time: 14:59 Allergies/Adverse Reactions: Patient Allergies Penicillins Allergy (Intermediate, Verified 03/02/21 13:10) I-RASH Height: 1.73 m Weight: 74.843 kg Patient Problems: Current Active Problems Alcohol abuse with alcohol-induced disorder (Acute) - VTE Risk Labs: VTE Related Lab Results Hgb 13.2 g/dL (14.1-18.0) L 03/13/21 13:05 Hct 41.2 % (42.0-52.0) L 03/13/21 13:05 Plt Count 307 K/mm3 (142-424) 03/13/21 13:05 BUN 5 mg/dl (9-20) L 03/13/21 13:05 Creatinine 1.40 mg/dl (0.66-1.25) H 03/13/21 13:05 Estimated Creat Clear 63 mL/min (50-200) 03/13/21 13:05 Was VTE Risk Assessment Performed: No Clinical Trial Participant: No - Prophylaxis VTE Prophylaxis Ordered?: Yes Types of VTE Prophylaxis: TEDS Knee High, Pharmacological Location of Applied Device: Bilateral Lower Extremeties Pharmacologic Type: Enoxaparin
[2021-03-13 15:01] LABS: Troponin I 0.03 ng/ml (0.00-0.034)
[2021-03-13 15:04] LABS: Activated Partial Thrombo Time 30.5 seconds (22.8-30.6); INR 1.07 (0.9-1.1)
--- NOTE | 2021-03-13 15:26 | PC.NURSE ---
18 mins left on covid swab
--- NOTE | 2021-03-13 15:30 | PC.NURSE ---
Report given to Tamara Baltazar
[2021-03-13 15:54] LABS: Lipase 333 U/L (23-300)
[2021-03-13 19:19] LABS: Troponin I 0.02 ng/ml (0.00-0.034)
[2021-03-13 21:47] LABS: Troponin I 0.02 ng/ml (0.00-0.034)
[2021-03-14] VITALS (11 sets, daily range): BP systolic 132–180; BP diastolic 75–110; PULSE 69–110; RESP 17–22; TEMP 36.6–36.8; O2SAT 97–100; BMI 25.0
[2021-03-14 07:28] LABS: Basophils % 0.5 % (0.1-2.0); Eosinophils # 0.8 K/mm3 (0.0-0.4); Eosinophils % 11.7 % (0.1-12.0); Hematocrit 33.4 % (42.0-52.0); Lymphocytes % 27.4 % (10-50); Mean Corpuscular Hemoglobin 27.4 pg (27.0-31.2); Mean Corpuscular Volume 82.8 fl (80-94); Monocytes # 0.5 K/mm3 (0.1-1.0); Monocytes % 6.6 % (1.7-9.3); Neutrophils # 3.9 K/mm3 (1.8-7.8); Neutrophils % 53.7 % (37.0-80.0); Platelet Count 182 K/mm3 (142-424); Red Blood Count 4.03 M/mm3 (4.60-6.20); Red Cell Distribution Width 15.8 % (11.5-17.5); White Blood Count 7.2 K/mm3 (4.8-10.8)
[2021-03-14 07:35] LABS: Alanine Aminotransferase 69 U/L (12-78); Albumin Level 3.5 g/dl (3.5-5.0); Albumin/Globulin Ratio 1.1 (1.1-1.8); Alkaline Phosphatase 119 U/L (38-126); Aspartate Amino Transferase 113 U/L (17-59); Bilirubin,Total 0.5 mg/dl (0.2-1.3); Blood Urea Nitrogen 4 mg/dl (9-20); Carbon Dioxide 28 mmol/L (22.0-30.0); Chloride 94 mmol/L (98-107); Creatinine Clearance Estimated 88 mL/min (50-200); Estimated Glomerular Filt Rate 78 ml/min (>60); GFR (African American) 94 ML/MIN (>60); Globulin 3.1 g/dL (1.3-3.2); Glucose 105 mg/dl (74-100); Sodium 126 mmol/L (136-145); Total Protein,Serum 6.6 g/dl (6.3-8.2)
--- NOTE | 2021-03-14 08:33 | CA_ITS ---
APPROVED REPORT EXAM: Comprehensive 2D, Doppler, and color-flow Echocardiogram Manager Property: SARAI Newton, RVS Ht: 5 ft 8 in Wt: 164lbs BSA: 1.88 BP: 76/47 mmHg Indications: AVR-TAVR 12/2020, CAD, Alcohol withdraw, CABG, Smoker, COPD, HLD, HTN Echo Enhancing Agent Comments: Limited parasterncal short axis due to low parasternal windows post-op. 2D Dimensions LVDs 3.64 cm LA Volume 35.40 mL Aortic Root 2.99 cm LA Volume Index 18.80 mL/m2 (M/F) 16-34 Left Atrium 3.97 cm LVOT 1.99 cm (M/F) 1.5-2.5 M-Mode Dimensions RVDd 2.86 cm (0.9-2.6) LVDd 5.68 cm (3.5-5.7) LVDs 3.71 cm (3.5-5.7) IVSd 1.30 cm (0.6-1.1) PWd 1.21 cm (0.6-1.1) EF (Teich) 63.20% FS 34.70% EDV (Teich) 158.80 mL TAPSE 1.57 (<1.7) ESV (Teich) 58.50 mL LV Diastology E Decel Time 153.00 (160-240 msec) E/A Ratio 0.74 MED E' 5.10 (< 7 cm/sec) MED A' 11.00 cm/s E'/MED E' Ratio 14.80 (>14) LAT E' 6.70 (<10 cm/sec) LAT A' 14.10 cm/s E/LAT E' Ratio 11.27 (>14) Aortic Valve LVOT Max 114.00 (70-110 cm/s) LVOT VTI 22.53 cm AoV Peak Juve. 214.00 (50-130 cm/s) AI PHT 249.00 ms AO Peak GR. 18.30 mmHg AO Mean GR. 9.00 (<5 mmHg) AO VTI 39.28 (18-25 cm) OXANA (VTI) 1.78 (2.5-4.5 cm2) Mitral Valve MV E Max Juve. 76.00 (40-130 cm/s) MV A Velocity 102.00 (40-130 cm/s) E/A Ratio 0.74 MV Decel. Time 153.00 (160-240 ms) MV Mean Gr. 2.50 (<2mmHg) MV PHT 45.00 ms Pulmonary Valve PV Peak Velocity 85.00 (50-150 cm/s) Tricuspid Valve TR P. Velocity 129.00 cm/s RAP Estimate 10.00 mmHg RVSP 16.60 mmHg Left Ventricle Technically difficult study because of the patient factors and poor acoustic windows. Left atrium is mildly enlarged, left ventricle is normal size, mild concentric left ventricular hypertrophy, visually estimated ejection fraction 55%, there is abnormal septal motion. Grade 1 diastolic dysfunction seen without tissue Doppler evidence of raise left atrial pressure. Right Ventricle Right atrium and right ventricle are normal size and contractility. Aortic Valve Aortic valve is not well visualized, historically patient has a stented aortic valve, there is no significant aortic outflow obstruction, there is trace aortic insufficiency. Mitral Valve Mitral valve grossly normal, there is trace mitral regurgitation. Tricuspid Valve Tricuspid valve grossly normal, there is trace tricuspid regurgitation, tricuspid regurgitation jet velocity is inadequate for calculation of the right ventricular systolic pressure. Pulmonic Valve Pulmonic valve is poorly visualized. Great Vessels Aortic root is normal size. Inferior vena cava is poorly visualized. Pericardium No significant pericardial effusion noted. Conclusion 1. Technically difficult study because of the patient factors and poor acoustic windows. Left atrium is mildly enlarged, left ventricle is normal size, mild concentric left ventricular hypertrophy, visually estimated ejection fraction 55% with there is abnormal septal motion, grade 1 diastolic dysfunction seen without tissue Doppler evidence of raise left atrial pressure. 2. Likely stented aortic valve without any significant aortic outflow obstruction, there is trace aortic insufficiency. 3. Trace mitral and tricuspid regurgitation. 4. No significant pericardial effusion noted. Electronically signed by : Noah Sweet MD 03/14/2021 20:32:24
--- NOTE | 2021-03-14 09:40 | HMH.PHAINT ---
VERIFIED HOME MEDICATION LIST USING LIST FROM CLINIC PHARMACY AND PT INTERVIEW
--- NOTE | 2021-03-14 09:41 | HMH.CNCARD ---
History of Present Illness Consult date: 03/14/21 Requesting physician: Lucius Rodriguez Chief complaint: Tremors Additional Medical History:: 1. S/P bioprosthetic AVR, 01/05/2021, Dr. Preston, [facility]. Normal coronary arteries by cardiac cath 11/2020 A. CTA of chest, 02/2021, compared to 01/13/2021, worrisome for wound dehiscence and possible infection. B. Nuclear medicine bone scan, 03/11/2021, does not appear to show infection per Dr. De Souza (radiologist) 2. Thoracic aneurysm, 4 cm 3. History of alcohol abuse, now states he drinks nonalcoholic beer 4. Tobacco abuse A. COPD 5. Paroxysmal atrial fibrillation A. Anticoagulation with Eliquis 6. Hypertension A. Echocardiogram, 01/20/2021, 1. Mildly enlarged left atrium, normal left ventricular size, mild concentric left ventricular hypertrophy, visually estimated ejection fraction 55% with no regional wall motion abnormality, grade 1 diastolic dysfunction seen without tissue Doppler evidence of raise left atrial pressure. 2. Mild mitral and tricuspid regurgitation. 3. No significant pericardial effusion noted. 4. Bioprosthetic valve in the aortic position without aortic flow obstruction, there is trace aortic insufficiency. 7. History of seizure disorder 8. Anxiety/depression 9. Hyperlipidemia, on statin therapy History of present illness: 55-year-old male presented to the emergency department with some shakiness and unsteadiness. The patient has a longstanding history of alcohol abuse. He states his last drink was this morning. He drank 2 beers earlier when he woke up. Patient states that he is just felt weak all over. He has had some shakiness in his hands as well. He denies any associated chest pain or palpitations. He has had some mild diarrhea, however no abdominal pain or vomiting. Denies any headache or change in vision. No focal weakness. Denies any hallucinations. 55-year-old male presented to the emergency department with some tremors and generalized weakness. Patient is a longstanding issue of alcohol abuse. He states that he did drink this morning. He is not having any hallucinations or signs consistent with DTs. I do believe these tremors are likely secondary to his alcohol abuse. Work-up will be initiated. On reevaluation, the patient's tremors have slightly improved. Heart rate is improved as well, however slightly hypertensive. I do believe the patient's symptoms are consistent with alcohol withdrawal. We will place patient on CIWA precautions. Admitted to hospital for further evaluation and treatment. The above per JOSE Green MD Patient was admitted and monitored overnight with no recurrence of tremors. He states he feels well this morning. He continues to have some postsurgical chest pain due to his aortic valve replacement 2 months ago. He was seen in the office last week due to concern for wound dehiscence and possible sternotomy infection at which time he was placed on Bactrim. Nuclear bone scan was obtained on last Sunday and reviewed today with the radiologist, Dr. De Souza, with no appreciable evidence to suggest infection. It does reveal that he has had some separation of the sternum to suggest dehiscence. We will send copies of the CT scans and the nuclear bone scan to Dr. Preston for further review. No plans for invasive testing or further cardiac testing at this time. [facility] History Medical History: Reports:: Anxiety, Asthma, Chronic Obstructive Pulmonary Disease (COPD), Depression, Gastroesophageal Reflux Disease(GERD), Hyperlipidemia, Hypertension, Lung Disease, Migraine, Seizures, Valvular Heart Disease Denies:: Cancer, Diabetes Mellitus Type 1, Diabetes Mellitus Type 2, Internal Pacemaker, MRSA *Have you ever received a pneumonia vaccine?: No *Have you received a flu vaccine this season?: No Other Medical History: Reports: Anemia, Other. Denies: Blood Transfusion Reaction Laterality Cases: Left: Other, Right: Arthros
--- NOTE | 2021-03-14 17:12 | HMH.HP ---
*Admission Date: 03/13/21 *Chief complaint: weakness *History of present illness: 55-year-old male presented to the emergency department with tremors and generalized weakness. Hx of alcohol abuse. He states he did drink this morning. Patient was admitted and monitored overnight with no recurrence of tremors. He states he feels well this morning and tremors have improved. Patient states he continues to have some postsurgical chest pain due to his aortic valve replacement 2 months ago. Patient has been seeing Martin and placed on antibiotics and concern for wound dehiscence and possible sternotomy infection at which time he was placed on Bactrim. Patient admitted cardiology and behavior health evaluation> We will place patient on CIWA precautions. 180/111 [facility] History I have reviewed the patient's past medical history: Yes Medical History: Reports:: Anxiety, Asthma, Chronic Obstructive Pulmonary Disease (COPD), Depression, Gastroesophageal Reflux Disease(GERD), Hyperlipidemia, Hypertension, Lung Disease, Migraine, Seizures, Valvular Heart Disease Denies:: Cancer, Diabetes Mellitus Type 1, Diabetes Mellitus Type 2, Internal Pacemaker, MRSA *Have you ever received a pneumonia vaccine?: No *Have you received a flu vaccine this season?: No Other Medical History: Reports: Anemia, Other. Denies: Blood Transfusion Reaction Laterality Cases: Left: Other, Right: Arthroscopy Knee, Arthroscopy Shoulder Other Surgeries: Yes: CABG, Cardiac Catheterization, Cardiac Surgery, Colonoscopy, EGD, Mitral Valve Replacement, Open Heart Surgery, Other Valve Replacement, Other. No: Pacemaker Amputation: No Fractures: No - *Social History Last grade of school completed: 7th or 8th Smoking Status: Current every day smoker Tobacco Type: cigarettes # Packs/Day (cigarettes): 1 #Yrs smoked (if former smoker): 47 Alcohol Intake: current Alcohol Intake Frequency:: 3 or more drinks per day Substance Use Type: denies use *Occupational Status:: disabled Housing: apartment Household Members: significant other *Travel in the last 8 weeks: None - Psychiatric History Pschychiatric History:: Reports:: Anxiety, Depression Family Hx:: Diabetes, Hyperlipidemia, Hypertension, Alcoholism Review of Systems - Review of Systems Review of systems:: pertinent systems reviewed and negative unless documented below - Constitutional Reports fatigue, Reports weakness - Eyes Denies blind spots - ENT Denies abnormal hearing - *Cardiovascular Reports chest pain, Denies irregular heart rhythm - *Respiratory Denies coughing up blood, Denies pain with cough - *Gastrointestinal Denies abdominal pain - *Genitourinary Denies decreased urination - *Musculoskeletal Denies abnormal walking - Integumentary/Breasts Denies nail changes - *Neurologic Reports tremor(s), Reports weakness - Psychiatric Denies tactile hallucinations - Endocrine Denies cold intolerance - Hematologic/Lymphatic Denies easy bruising Meds Home Medications Medication Instructions Recorded Confirmed Type Thiamine HCl [Vitamin B-1] 100 mg PO BID 11/30/20 03/14/21 History albuterol sulfate 90 mcg/actuation 1 inh INHALATION Q6H PRN 90 Days 01/19/21 03/13/21 Rx aerosol inhaler #8.5 g amitriptyline 25 mg tablet 50 mg PO HS #60 tab 03/02/21 03/13/21 Rx atorvastatin 80 mg tablet 80 mg PO HS #90 tab 03/02/21 03/13/21 Rx hydroxyzine pamoate 50 mg capsule 50 mg PO TID PRN #90 cap 03/02/21 03/13/21 Rx ipratropium 0.5 mg-albuterol 3 mg 3 ml INHALATION QID PRN 90 Days 03/02/21 03/13/21 Rx (2.5 mg base)/3 mL nebulization #360 ml soln oxycodone 10 mg tablet 10 mg PO Q8H PRN #21 tab 03/09/21 03/13/21 Rx Apixaban [Eliquis] 5 mg PO BID 03/13/21 03/13/21 History Aspirin 81 mg PO DAILY 03/13/21 03/13/21 History Budesonide/Glycopyr/Formoterol 2 inh INHALATION BID 03/13/21 03/13/21 History [Breztri Aerosphere] Furosemide [Furosemide 40MG tAB*] 40 mg PO DAILY 03/13/21 03/13/21 History L
[2021-03-14 18:31] LABS: Alanine Aminotransferase 83 U/L (12-78); Albumin Level 4.2 g/dl (3.5-5.0); Albumin/Globulin Ratio 1.3 (1.1-1.8); Alkaline Phosphatase 124 U/L (38-126); Anion Gap 11.8 mEq/L (5-15); Aspartate Amino Transferase 132 U/L (17-59); Bilirubin,Total 0.4 mg/dl (0.2-1.3); Blood Urea Nitrogen 4 mg/dl (9-20); Calcium 8.7 mg/dl (8.4-10.2); Carbon Dioxide 27 mmol/L (22.0-30.0); Chloride 91 mmol/L (98-107); Creatinine Clearance Estimated 110 mL/min (50-200); Estimated Glomerular Filt Rate 100 ml/min (>60); GFR (African American) 121 ML/MIN (>60); Globulin 3.3 g/dL (1.3-3.2); Glucose 156 mg/dl (74-100); Magnesium 2.3 mg/dl (1.6-2.3); Phosphorous 2.1 mg/dl (2.5-4.5); Potassium 3.8 mmoL/L (3.5-5.1); Sodium 126 mmol/L (136-145); Total Protein,Serum 7.5 g/dl (6.3-8.2)
[2021-03-15] VITALS: BP 147/91; PULSE 70; PULSE 79; RESP 18; TEMP 36.5; O2SAT 96
[2021-03-15 04:00] VITALS: PULSE 80; BMI 24.9
[2021-03-15 05:00] VITALS: BP 135/86; PULSE 80; RESP 18; TEMP 36.4; O2SAT 97
[2021-03-15 06:15] VITALS: PULSE 88; PULSE 89
--- NOTE | 2021-03-15 07:45 | HMH.PNCARD ---
Subjective Date: 03/15/21 Time: 07:45 Principal diagnosis: chest pain, tremors Interval history: 55-year-old white male heading to the bathroom in no acute distress. Relates some chest discomfort last evening that was improved after pain medication administration. Patient is asking for additional pain medication to go home with stating he only has 3 pills left from his prescription given to him last week with 21 pills. Plate patient's blood pressure was noted to be elevated yesterday evening but he did not receive one of his blood pressure medications during the day Because it was not available. Exam Vital signs and Labs for Last 24 Hours: Temp Pulse Resp BP Pulse Ox 97.5 F L 89 18 135/86 97 03/15/21 05:00 03/15/21 06:15 03/15/21 05:00 03/15/21 05:00 03/15/21 05:00 Laboratory Results - last 24 hr 03/14/21 06:29: WBC 7.2, RBC 4.03 L, Hgb 11.0 L D, Hct 33.4 L, MCV 82.8, MCH 27.4, MCHC 33.0, RDW 15.8, Plt Count 182 D, MPV 9.0, Neut % (Auto) 53.7, Lymph % (Auto) 27.4, Faulk % (Auto) 6.6, Eos % (Auto) 11.7, Baso % (Auto) 0.5, Neut # (Auto) 3.9, Lymph # (Auto) 2.0, Faulk # (Auto) 0.5, Eos # (Auto) 0.8 H, Baso # (Auto) 0.0 03/14/21 17:44: Sodium 126 L, Potassium 3.8, Chloride 91 L, Carbon Dioxide 27, Anion Gap 11.8, BUN 4 L, Creatinine 0.80, Estimated Creat Clear 110, Estimated GFR 100, Est GFR ( Amer) 121 D, Glucose 156 H D, Calcium 8.7, Phosphorus 2.1 L, Magnesium 2.3, Total Bilirubin 0.4, AST 132 H, ALT 83 H, Alkaline Phosphatase 124, Total Protein 7.5, Albumin 4.2 D, Globulin 3.3 H, Albumin/Globulin Ratio 1.3 I & O for Last 24 hours: Intake & Output 03/12/21 03/13/21 03/14/21 03/15/21 11:59 11:59 11:59 11:59 Intake Total 600 / 600 960 / 960 Balance 600 / 600 960 / 960 Weight 164 lb 15.938 oz 164 lb 8.143 oz - Constitutional no acute distress - *Routine HEENT Exam Head: Present: normocephalic Eye: Present: EOMI, PERRL ENT: Present: mucous membranes moist - *Routine Neck Exam Present: supple. Absent: lymphadenopathy - *Routine Respiratory Exam Present: wheezes - *Routine Cardiovascular Exam Present: RRR - *Routine Abdominal Exam Present: soft, normoactive bowel sounds. Absent: tenderness - *Routine Extremities Exam Absent: cyanosis, clubbing, edema - *Routine Skin Exam Present: warm. Absent: rash - *Routine Neurological Exam Present: alert, oriented X3 Progress Note: A&P (1) Alcohol abuse with alcohol-induced disorder Status: Acute (2) Dehiscence of closure of sternum or sternotomy Status: Acute Assessment and plan: No evidence of infection by nuclear bone scan. (3) HLD (hyperlipidemia) Status: Chronic (4) HTN (hypertension) Status: Chronic (5) Thoracic aortic aneurysm Status: Chronic Assessment and plan: Stable at 4 cm. Assessment and Plan for All Diagnoses:: 1. Tremors likely related to alcohol use, resolved. 2. Recent open heart surgery with aortic valve replacement using a bioprosthetic aortic valve. Sternum with slight dehiscence but no evidence of infection. Patient continues to have some discomfort due to this and is on OxyCodone at home. He will continue Bactrim as directed to complete a 10-day course from 03/11/2021. He will follow-up in our office in 1 week and likely be referred to Dr. Preston for follow-up thereafter. Will give a single dose of IV toradol for continue chest pain that sounds musculoskeletal in nature. He may need referral to pain clinic. Discussed with Dr. Salazar. No more oxycodone from our office. 3. Hypertension, continue metoprolol and losartan at home doses. 4. Hyperlipidemia, continue atorvastatin 80 mg daily 5. Thoracic aortic aneurysm at 4 cm, stable Stable for discharge from cardiology standpoint. Follow-up in 1 week. Home medications recommendations: Aspirin 81 mg daily Apixaban 5 mg twice daily Metoprolol tartrate 50 mg twice daily Losartan 25 mg daily Pantoprazole 40 mg daily F
[2021-03-15 08:00] VITALS: BP 125/94; PULSE 90; RESP 26; TEMP 36.4; O2SAT 98
[2021-03-15 08:39] LABS: Basophils % 0.1 % (0.1-2.0); Eosinophils % 0.1 % (0.1-12.0); Hematocrit 31.9 % (42.0-52.0); Hemoglobin 9.9 g/dL (14.1-18.0); Lymphocytes # 1.2 K/mm3 (0.7-4.5); Lymphocytes % 10.1 % (10-50); Mean Corpuscular HGB Conc 31.2 g/dL (31.8-35.4); Mean Corpuscular Hemoglobin 26.9 pg (27.0-31.2); Mean Corpuscular Volume 86.2 fl (80-94); Monocytes # 0.3 K/mm3 (0.1-1.0); Monocytes % 2.8 % (1.7-9.3); Neutrophils # 10.5 K/mm3 (1.8-7.8); Platelet Count 178 K/mm3 (142-424); Red Cell Distribution Width 16.1 % (11.5-17.5); White Blood Count 12.1 K/mm3 (4.8-10.8)
[2021-03-15 08:42] LABS: MANUAL DIFFERENTIAL MANUAL DIFFERENTIAL (MANUAL DIFF)
--- NOTE | 2021-03-15 08:44 | HMH.DCSUM ---
General - General Admission date:: 03/13/21 Discharge date: 03/15/21 HPI HPI: 55-year-old male presented to the emergency department with tremors and generalized weakness. Hx of alcohol abuse. He states he did drink this morning. Patient was admitted and monitored overnight with no recurrence of tremors. He states he feels well this morning and tremors have improved. Patient states he continues to have some postsurgical chest pain due to his aortic valve replacement 2 months ago. Patient has been seeing Martin and placed on antibiotics and concern for wound dehiscence and possible sternotomy infection at which time he was placed on Bactrim. Patient admitted cardiology and behavior health evaluation> We will place patient on CIWA precautions. 180/111 Hospital Course Hospital Course: 55-year-old male presented to the emergency department with tremors and generalized weakness. Hx of alcohol abuse. He states he did drink this morning. Patient was admitted and monitored overnight with no recurrence of tremors. He states he feels well this morning and tremors have improved. Patient states he continues to have some postsurgical chest pain due to his aortic valve replacement 2 months ago. Patient has been seeing Martin and placed on antibiotics and concern for wound dehiscence and possible sternotomy infection at which time he was placed on Bactrim. Patient admitted cardiology and behavior health evaluation> We will place patient on CIWA precautions. 03/13/21 CXR: IMPRESSION: 1. Improved aeration of the lower lungs compared with 01/13/2021. 2. No definite findings of COVID-19 pneumonia; however, ground-glass opacities of COVID-19 pneumonia can be radiographically occult on plain chest x-ray. If further imaging is warranted by the clinical findings or course, chest CT would be a more sensitive exam. 3. Multiple additional nonemergency and chronic findings as above. Electronically signed by Meghann Calderon MD 03/13/21 ECHO: Conclusion 1. Technically difficult study because of the patient factors and poor acoustic windows. Left atrium is mildly enlarged, left ventricle is normal size, mild concentric left ventricular hypertrophy, visually estimated ejection fraction 55% with there is abnormal septal motion, grade 1 diastolic dysfunction seen without tissue Doppler evidence of raise left atrial pressure. 2. Likely stented aortic valve without any significant aortic outflow obstruction, there is trace aortic insufficiency. 3. Trace mitral and tricuspid regurgitation. 4. No significant pericardial effusion noted. Electronically signed by : Noah Sweet MD Cardiology has seen and recommends: 1. Tremors likely related to alcohol use, resolved. 2. Recent open heart surgery with aortic valve replacement using a bioprosthetic aortic valve. Sternum with slight dehiscence but no evidence of infection. Patient continues to have some discomfort due to this and is on OxyCodone at home. He will continue Bactrim as directed to complete a 10-day course from 03/11/2021. He will follow-up in our office in 1 week and likely be referred to Dr. Preston for follow-up thereafter. Will give a single dose of IV toradol for continue chest pain that sounds musculoskeletal in nature. He may need referral to pain clinic. Discussed with Dr. Salazar. No more oxycodone from our office. 3. Hypertension, continue metoprolol and losartan at home doses. 4. Hyperlipidemia, continue atorvastatin 80 mg daily 5. Thoracic aortic aneurysm at 4 cm, stable Stable for discharge from cardiology standpoint. Follow-up in 1 week. Home medications recommendations: Aspirin 81 mg daily Apixaban 5 mg twice daily Metoprolol tartrate 50 mg twice daily Losartan 25 mg daily Pantoprazole 40 mg daily Furosemide 40 mg daily Patient has Bactrim and oxycodone at home from last week's office visit. 55-year-old male patient merlyn
[2021-03-15 09:02] LABS: Anisocytosis 1+; Hypochromasia 1+; Lymphocytes % 14 % (10-50); Microcytosis 1+; Monocytes % 1 % (2-9); Neutrophils % 85 % (42-76); Platelet Estimate Normal; Total Cells Counted 100
[2021-03-15 09:04] LABS: Anion Gap 9.5 mEq/L (5-15); Blood Urea Nitrogen 5 mg/dl (9-20); Calcium 8.4 mg/dl (8.4-10.2); Carbon Dioxide 27 mmol/L (22.0-30.0); Chloride 95 mmol/L (98-107); Creatinine Clearance Estimated 126 mL/min (50-200); Estimated Glomerular Filt Rate 117 ml/min (>60); GFR (African American) 142 ML/MIN (>60); Glucose 158 mg/dl (74-100); Potassium 3.5 mmoL/L (3.5-5.1); Sodium 128 mmol/L (136-145)
== END 2021-03-15 11:02 | disposition home or self-care (01) ==
LOC: ER 14:27 → 2ND 15:13
PROVIDERS: Nurse Practitioner Family; Admitting Provider Family Medicine; Emergency Provider Emergency Medicine; PCP Emergency Medicine; Visit Provider Emergency Medicine
DX: F10.939 Alcohol use, unspecified with withdrawal, unspecified (principal); I10 Essential (primary) hypertension; Z20.822 Contact with and (suspected) exposure to COVID-19; Z79.01 Long term (current) use of anticoagulants; Z79.899 Other long term (current) drug therapy; T81.32XA Disruption of internal operation (surgical) wound, not elsewhere classified, initial encounter; J44.9 Chronic obstructive pulmonary disease, unspecified; F17.210 Nicotine dependence, cigarettes, uncomplicated; Y83.1 Surgical operation with implant of artificial internal device as the cause of abnormal reaction of the patient, or of later complication, without mention of misadventure at the time of the procedure; Y90.0 Blood alcohol level of less than 20 mg/100 ml
CPT/HCPCS: 36415; 71045; 80048; 80053; 83690; 83735; 83880; 84100; 84484; 85007; 85025; 85610; 85730; 93306; 94640; 96365; 96367; 99283; C9803; G0378; U0003; U0005

== ENCOUNTER 2021-03-20 12:58 | Observation (INO) | payer MEDICAID, SELFPAY ==
[2021-03-20] VITALS (9 sets, daily range): BP systolic 135–160; BP diastolic 85–109; PULSE 69–85; RESP 16–20; TEMP 36.2–36.5; O2SAT 96–99; BMI 25.1; BMI 24.6
--- NOTE | 2021-03-20 13:09 | ECG_ITS ---
APPROVED REPORT Exam: Resting ECG HR:74 bpm ECG Measurements Heart Rate [address] 150 P 22 QRSd 122 QRS 15 QT 494 T 190 QTc 548 Conclusion Normal sinus rhythm Left ventricular hypertrophy with QRS widening and repolarization abnormality Abnormal ECG Electronically signed by : Rico Moe MD 03/22/2021 12:20:54
--- NOTE | 2021-03-20 13:12 | HMH.EDGENADL ---
ED Disposition Clinical Impression: Hypoglycemia Accidental drug ingestion Qualifiers: Encounter type: initial encounter Qualified Code(s): T50.901A - Poisoning by unspecified drugs, medicaments and biological substances, accidental (unintentional), initial encounter Disposition: Admitted as Observation Condition on Discharge: Fair - Critical Care Critical Care Time: No Attestation: On , the high probability of a clinically significant, sudden or life threatening deterioration of the following system(s) required my full and direct attention, intervention and personal management. The time I documented below is in addition to time spent performing reported procedures but includes the following listed in this critical care notation. Medical Decision Making - Medical Records Medical records reviewed: Yes: I reviewed the patient's medical records. MR Comment: Reviewed discharge summary from recent admission 03/13/2021 through 03/15/2021. Admitted for alcohol withdrawal. Also seen by cardiology. Had aortic valve replacement 2 months prior. - Kel[place] Inquiry Pt receiving controlled substance: No Vital Signs: 03/20/21 12:58 Temperature 97.1 F L Temperature Source Oral Pulse Rate [Radial] 69 Respiratory Rate 18 Blood Pressure [Right Arm] 142/90 H Blood Pressure Mean [Right Arm] 107 Blood Pressure Position [Right Arm] Sitting 02 Sat by Pulse Oximetry 96 Oxygen Delivery Method Room Air - Lab Data Lab Results 03/20/21 13:16: WBC 12.8 H, RBC 3.76 L, Hgb 10.1 L, Hct 31.9 L, MCV 84.9, MCH 26.9 L, MCHC 31.6 L, RDW 16.2, Plt Count 272, MPV 8.3, Neut % (Auto) 73.7, Lymph % (Auto) 13.4, [place] % (Auto) 9.4 H, Eos % (Auto) 3.3, Baso % (Auto) 0.2, Neut # (Auto) 9.5 H, Lymph # (Auto) 1.7, [place] # (Auto) 1.2 H, Eos # (Auto) 0.4, Baso # (Auto) 0.0 03/20/21 13:16: Sodium 125 L, Potassium 3.7, Chloride 90 L, Carbon Dioxide 29, Anion Gap 9.7, BUN 13, Creatinine 0.60 L, Estimated Creat Clear 156, Estimated GFR 140, Est GFR ( Amer) 169, Glucose 302 H, Calcium 8.5, Total Bilirubin 0.2, AST 51, ALT 36, Alkaline Phosphatase 95, Troponin I 0.02, Total Protein 6.8, Albumin 3.7, Globulin 3.1, Albumin/Globulin Ratio 1.2 03/20/21 13:16: Plasma/Serum Alcohol < 10 03/20/21 13:16: Urine Opiates Screen Negative, Urine Methadone Screen Negative, Ur Barbituates Screen Negative, Ur Phencyclidine Scrn Negative, Ur Amphetamines Screen Negative, U Benzodiazepines Scrn Negative, Urine Cocaine Screen Negative, U Marijuana (THC) Screen Negative 03/20/21 13:16: Urine Color Yellow, Urine Appearance Clear, Urine pH 6.0, Ur Specific [place] 1.010, Urine Protein Negative, Urine Glucose (UA) 1+, Urine Ketones Negative, Urine Blood Negative, Urine Nitrate Negative, Urine Bilirubin Negative, Urine Urobilinogen 0.2, Ur Leukocyte Esterase Negative, Urine RBC None, Urine WBC 3-5, Ur Squamous Epith Cells Occasional, Urine Bacteria None 03/20/21 13:30: SARS-CoV-2 (PCR) Not detected, Influenza A Untype (PCR) Not detected, Influenza Type B (PCR) Not detected Result diagrams: 03/20/21 13:16 03/20/21 13:16 Orders (Tests/Meds): ED MEDICATIONS Generic Name Dose Route Start Last Admin Trade Name Freq PRN Reason Stop Dose Admin Dextrose 1,000 mls @ 100 mls/hr 03/20/21 13:30 03/20/21 13:15 Dext 5% In Water 1000mls IV 04/19/21 13:29 100 mls/hr .Q10H TRACEY Administration Discontinued Medications Generic Name Dose Route Start Last Admin Trade Name Freq PRN Reason Stop Dose Admin Dextrose 50 ml 03/20/21 13:26 03/20/21 13:15 Dextrose 50% 50ml Syringe (Crash Cart) IVP 03/20/21 13:27 50 ml ONCE ONE Administration ORDERS Category Date Time Status XR chest portable Stat Exams 03/20/21 13:27 Taken Troponin I Q3H Lab 03/20/21 16:30 Ordered Troponin I Q3H Lab 03/20/21 19:30 Ordered - Radiology Data #1 Image(s): Chest Image Reviewed: Yes I reviewed the patient's radiology image Prior sternotomy. Atelectasis in the bases. -
--- NOTE | 2021-03-20 13:27 | XR_ITS ---
PROCEDURE INFORMATION: Exam: XR Chest Exam date and time: 03/20/2021 1:27 PM Age: 55 years old Clinical indication: Shortness of breath and other: Weakness TECHNIQUE: Imaging protocol: XR of the chest. Views: 1 view. COMPARISON: CR XR CHEST PORTABLE 03/13/2021 12:40 PM FINDINGS: Lungs: Lungs are mildly hyperexpanded, compatible chronic obstructive pulmonary physiologic changes. Minimal left basilar subsegmental atelectasis or scarring. Pleural spaces: Unremarkable. No pleural effusion. No pneumothorax. Heart/Mediastinum: Normal. Bones/joints: Changes of prior sternotomy. Degenerative changes of the acromioclavicular joints and right glenohumeral joint, manifest by joint space narrowing and osteophyte formation. Right humeral head is high riding in relation to the glenoid, compatible with chronic right rotator cuff arthropathy. IMPRESSION: No acute cardiopulmonary abnormality.
[2021-03-20 13:32] LABS: Microscopic, Urine URINE MICROSCOPIC (MICROSCOPIC)
[2021-03-20 13:34] LABS: Coronavirus 19, PCR Not Detected (NotDetected); Influenza A, PCR Not Detected (NotDetected); Influenza B, PCR Not Detected (NotDetected)
[2021-03-20 13:35] LABS: Appearance,Urine CLEAR (Clear); Bilirubin,Urine Negative (Negative); Blood, Urine Negative (Negative); Color,Urine YELLOW (Yellow); Glucose,Urine (UA) 1+ (Negative); Ketones,Urine Negative (Negative); Leukocyte Esterase,Urine Negative (Negative); Nitrate,Urine Negative (Negative); Protein,Urine Negative (Negative); Urobilinogen,Urine 0.2 EU/dl (0.2)
[2021-03-20 13:37] LABS: Chloride 90 mmol/L (98-107); Potassium 3.7 mmoL/L (3.5-5.1); Sodium 125 mmol/L (136-145)
[2021-03-20 13:39] LABS: Alanine Aminotransferase 36 U/L (12-78); Alkaline Phosphatase 95 U/L (38-126); Aspartate Amino Transferase 51 U/L (17-59); Bilirubin,Total 0.2 mg/dl (0.2-1.3); Blood Urea Nitrogen 13 mg/dl (9-20); Creatinine Clearance Estimated 156 mL/min (50-200); Estimated Glomerular Filt Rate 140 ml/min (>60); Ethyl Alcohol < 10 mg/dl (0-10); GFR (African American) 169 ML/MIN (>60)
[2021-03-20 13:40] LABS: Albumin Level 3.7 g/dl (3.5-5.0); Albumin/Globulin Ratio 1.2 (1.1-1.8); Anion Gap 9.7 mEq/L (5-15); Calcium 8.5 mg/dl (8.4-10.2); Carbon Dioxide 29 mmol/L (22.0-30.0); Globulin 3.1 g/dL (1.3-3.2); Glucose 302 mg/dl (74-100); Total Protein,Serum 6.8 g/dl (6.3-8.2)
[2021-03-20 13:41] LABS: Squamous Epithelial Cell,Urine Occasional #/hpf (0-5)
[2021-03-20 13:47] LABS: Amphetamine/Metha Screen,Urine Negative ng/ml (<1000)
[2021-03-20 13:48] LABS: Barbiturates Screen,Urine Negative ng/ml (<200)
[2021-03-20 13:49] LABS: Benzodiazepines Screen,Urine Negative ng/ml (<200); Cannabinoid Screen,Urine Negative ng/ml (<50)
[2021-03-20 13:50] LABS: Cocaine Screen,Urine Negative ng/ml (<300)
[2021-03-20 13:51] LABS: Methadone Screen,Urine Negative ng/ml (<300); Phencyclidine Screen,Urine Negative ng/ml (<25)
[2021-03-20 13:52] LABS: Opiate Screen,Urine Negative ng/ml (<300); Troponin I 0.02 ng/ml (0.00-0.034)
[2021-03-20 13:54] LABS: Basophils % 0.2 % (0.1-2.0); Eosinophils # 0.4 K/mm3 (0.0-0.4); Eosinophils % 3.3 % (0.1-12.0); Hematocrit 31.9 % (42.0-52.0); Hemoglobin 10.1 g/dL (14.1-18.0); Lymphocytes # 1.7 K/mm3 (0.7-4.5); Lymphocytes % 13.4 % (10-50); Mean Corpuscular HGB Conc 31.6 g/dL (31.8-35.4); Mean Corpuscular Hemoglobin 26.9 pg (27.0-31.2); Mean Corpuscular Volume 84.9 fl (80-94); Mean Platelet Volume 8.3 fl (7.4-10.4); Monocytes # 1.2 K/mm3 (0.1-1.0); Monocytes % 9.4 % (1.7-9.3); Neutrophils # 9.5 K/mm3 (1.8-7.8); Neutrophils % 73.7 % (37.0-80.0); Platelet Count 272 K/mm3 (142-424); Red Blood Count 3.76 M/mm3 (4.60-6.20); Red Cell Distribution Width 16.2 % (11.5-17.5); White Blood Count 12.8 K/mm3 (4.8-10.8)
--- NOTE | 2021-03-20 15:47 | PC.NURSE ---
pt arrived to the floor at this time
--- NOTE | 2021-03-20 19:21 | PC.NURSE ---
Pt's BP at this time 137/89. Last finger stick @ 1830 was 82. Pt asymptomatic at this time. Face is slightly flushed. Denies pain. CB in reach. IVF's continues per mar.
[2021-03-20 21:16] LABS: POC Glucose,Bedside 51 (70-110)
[2021-03-20 21:17] LABS: POC Glucose,Bedside 82 (70-110)
[2021-03-20 21:17] LABS: POC Glucose,Bedside 107 (70-110)
[2021-03-20 21:17] LABS: POC Glucose,Bedside 93 (70-110)
[2021-03-20 22:12] LABS: POC Glucose,Bedside 138 (70-110)
[2021-03-21 00:26] LABS: POC Glucose,Bedside 122 (70-110)
--- NOTE | 2021-03-21 03:32 | PC.NURSE ---
Patient has voiced no complaints to this RN thus far into the shift. Blood glucose continues to be checked Q2H and D5 is infusing at 150 ml/hr with no complications. No AMP of D5 has been given this RN's shift.
[2021-03-21 04:00] VITALS: BP 133/78; PULSE 88; RESP 18; TEMP 36.8; O2SAT 96
[2021-03-21 04:30] VITALS: BMI 24.7
[2021-03-21 07:57] VITALS: BP 151/91; PULSE 78; RESP 20; TEMP 36.9; O2SAT 99
--- NOTE | 2021-03-21 08:30 | HMH.HPDC ---
General - General Admission date:: 03/20/21 Discharge date: 03/21/21 *Admission Date: 03/20/21 *Chief complaint: hypoglycemia *History of present illness: 55 yr male presented to ed via ambulance for altered mental status due to low blood sugar. Patient says that he was combative, sweaty, shaky, confused. In ambulance he was given D50 during transport after due to low blood sugar. Pt states that he accidentally took one of his girlfriends diabetes pills last night (glipizxide). Pt states he says that he is not exactly sure how long he had been taking it, because it somehow got mixed into his medication bag. His girlfriend discovered it this morning and took it out of his bag. Pt was admitted and monitored for hypoglycemia. [facility] History I have reviewed the patient's past medical history: Yes Medical History: Reports:: Aneurysm, Anxiety, Asthma, Chronic Obstructive Pulmonary Disease (COPD), Depression, Gastroesophageal Reflux Disease(GERD), Hyperlipidemia, Hypertension, Lung Disease, Migraine, Seizures, Valvular Heart Disease Denies:: Cancer, Diabetes Mellitus Type 1, Diabetes Mellitus Type 2, Internal Pacemaker, MRSA *Have you ever received a pneumonia vaccine?: No *Have you received a flu vaccine this season?: No Other Medical History: Reports: Anemia, Other. Denies: Blood Transfusion Reaction Laterality Cases: Left: Other, Right: Arthroscopy Knee, Arthroscopy Shoulder Other Surgeries: Yes: CABG, Cardiac Catheterization, Cardiac Surgery, Colonoscopy, EGD, Mitral Valve Replacement, Open Heart Surgery, Other Valve Replacement, Other. No: Pacemaker Amputation: No Fractures: No - *Social History Smoking Status: Current every day smoker Tobacco Type: cigarettes # Packs/Day (cigarettes): 1 #Yrs smoked (if former smoker): 47 Alcohol Intake: current Alcohol Intake Frequency:: 0-2 drinks per day Substance Use Type: denies use *Occupational Status:: other Housing: apartment Household Members: spouse *Travel in the last 8 weeks: None - Psychiatric History Pschychiatric History:: Reports:: Anxiety, Depression Family Hx:: Diabetes, Hyperlipidemia, Hypertension, Alcoholism Review of Systems - Review of Systems Review of systems:: pertinent systems reviewed and negative unless documented below - Constitutional Denies body ache(s), Denies fatigue - Eyes Denies blurry vision - ENT Denies bleeding gums - *Cardiovascular Denies chest pain at rest - *Respiratory Denies change in phlegm color - *Gastrointestinal Denies belching - *Genitourinary Denies urinary frequency - *Musculoskeletal Denies abnormal walking - Integumentary/Breasts Denies bleeding lesions - *Neurologic Reports behavioral changes, Reports confusion - Psychiatric Denies anxiety - Endocrine Denies excessive sweating - Hematologic/Lymphatic Denies easy bruising - Allergic/Immunologic Denies GI upset with certain foods Exam Vital signs and Labs for Last 24 Hours: Temp Pulse Resp BP Pulse Ox 98.4 F 78 20 151/91 H 99 03/21/21 07:57 03/21/21 07:57 03/21/21 07:57 03/21/21 07:57 03/21/21 07:57 Laboratory Results - last 24 hr 03/20/21 13:16: WBC 12.8 H, RBC 3.76 L, Hgb 10.1 L, Hct 31.9 L, MCV 84.9, MCH 26.9 L, MCHC 31.6 L, RDW 16.2, Plt Count 272, MPV 8.3, Neut % (Auto) 73.7, Lymph % (Auto) 13.4, [place] % (Auto) 9.4 H, Eos % (Auto) 3.3, Baso % (Auto) 0.2, Neut # (Auto) 9.5 H, Lymph # (Auto) 1.7, [place] # (Auto) 1.2 H, Eos # (Auto) 0.4, Baso # (Auto) 0.0 03/20/21 13:16: Sodium 125 L, Potassium 3.7, Chloride 90 L, Carbon Dioxide 29, Anion Gap 9.7, BUN 13, Creatinine 0.60 L, Estimated Creat Clear 156, Estimated GFR 140, Est GFR ( Amer) 169, Glucose 302 H, Calcium 8.5, Total Bilirubin 0.2, AST 51, ALT 36, Alkaline Phosphatase 95, Troponin I 0.02, Total Protein 6.8, Albumin 3.7, Globulin 3.1, Albumin/Globulin Ratio 1.2 03/20/21 13:16: Plasma/Serum Alcohol < 10 03/20/21 13:16: Urine Opiates Screen Negative, Urine Meth
--- NOTE | 2021-03-21 08:38 | P.CONPHA_ITS ---
[facility] Pharmacy VTE Monitoring - Patient Demographics Admission date: 03/21/21 Report Date: 03/21/21 Time: 08:39 Allergies/Adverse Reactions: Patient Allergies Penicillins Allergy (Intermediate, Verified 03/02/21 13:10) I-RASH Height: 1.73 m Weight: 73.936 kg Patient Problems: Current Active Problems Hypoglycemia (Acute) Accidental drug ingestion (Acute) - VTE Risk Labs: VTE Related Lab Results Hgb 10.1 g/dL (14.1-18.0) L 03/20/21 13:16 Hct 31.9 % (42.0-52.0) L 03/20/21 13:16 Plt Count 272 K/mm3 (142-424) 03/20/21 13:16 BUN 13 mg/dl (9-20) 03/20/21 13:16 Creatinine 0.60 mg/dl (0.66-1.25) L 03/20/21 13:16 Estimated Creat Clear 156 mL/min (50-200) 03/20/21 13:16 Clinical Trial Participant: No - Prophylaxis VTE Prophylaxis Ordered?: Yes Types of VTE Prophylaxis: Pharmacological Pharmacologic Type: Other (ELIQUIS)
[2021-03-21 20:46] LABS: POC Glucose,Bedside 163 (70-110)
[2021-03-21 20:46] LABS: POC Glucose,Bedside 188 (70-110)
[2021-03-21 20:46] LABS: POC Glucose,Bedside 150 (70-110)
== END 2021-03-21 09:40 | disposition home or self-care (01) ==
LOC: ER 14:12 → 2ND 16:33
PROVIDERS: Admitting Provider Internal Medicine Adolescent Medicine; Emergency Provider Emergency Medicine; PCP Emergency Medicine; Visit Provider Emergency Medicine
DX: T38.3X1A Poisoning by insulin and oral hypoglycemic [antidiabetic] drugs, accidental (unintentional), initial encounter (principal); E16.0 Drug-induced hypoglycemia without coma; Z20.822 Contact with and (suspected) exposure to COVID-19; Z79.899 Other long term (current) drug therapy; Z79.01 Long term (current) use of anticoagulants; J44.9 Chronic obstructive pulmonary disease, unspecified; K21.9 Gastro-esophageal reflux disease without esophagitis; F17.210 Nicotine dependence, cigarettes, uncomplicated; I10 Essential (primary) hypertension; E78.5 Hyperlipidemia, unspecified; G43.909 Migraine, unspecified, not intractable, without status migrainosus; G40.909 Epilepsy, unspecified, not intractable, without status epilepticus
CPT/HCPCS: 71045; 80053; 80305; 81001; 82962; 84484; 85025; 93005; 94640; 96365; 96375; 99284; C9803; G0378; J7060; U0003; U0005

== ENCOUNTER → 2021-04-14 17:00 | Outpatient (CLI) | payer MEDICAID, SELFPAY ==
--- NOTE | 2021-04-14 17:00 | MR_ITS ---
PROCEDURE: MR HEAD/BRAIN WO CON CLINICAL INDICATION: Evaluate Stability of Bilateral CVA's COMPARISON: MR MR HEAD/BRAIN WO CON from 04/29/2020 TECHNIQUE: Routine multiplanar multi echo sequences are performed without gadolinium enhancement. FINDINGS: There is diffuse motion artifact obscuring fine detail. No midline shift, mass effect, intracranial hemorrhage, or hydrocephalus. The cerebellopontine angles, cerebellum, and brainstem have an unremarkable appearance. There is mild generalized atrophy. There are few scattered periventricular T2 white matter hyperintensities. These are probably unchanged. It is difficult to compare to the previous exam as there is a moderate degree of motion artifact on today's exam. Some of these appear less prominent on today's study but could be related to the motion. These do not appear progressed. The pituitary, optic chiasm, and craniocervical junction are unremarkable. There is atrophy of the corpus callosum. Minimal amount fluid noted in the tip of the left mastoid sinus. Mucosal thickening involves the right maxillary sinus. IMPRESSION: No acute intracranial findings. Mild atrophy with microangiopathic changes which are felt to be stable. Generalized motion artifact obscuring fine detail. Dictated by: Jeffery De Souza MD 04/16/2021 07:48 Jeffery De Souza MD in [place] 04/16/2021 07:48
== END ==
PROVIDERS: PCP Emergency Medicine; Visit Provider Specialist
DX: R56.9 Unspecified convulsions (principal); I10 Essential (primary) hypertension; R55 Syncope and collapse; I65.29 Occlusion and stenosis of unspecified carotid artery; R94.31 Abnormal electrocardiogram [ECG] [EKG]
CPT/HCPCS: 70551

== ENCOUNTER 2021-09-08 16:22 | Emergency (ER) | payer MEDICAID, SELFPAY ==
--- NOTE | 2021-09-08 16:26 | PC.NURSE ---
ED MD at
[2021-09-08 16:34] VITALS: BP 155/111; PULSE 83; RESP 20; TEMP 36.9; O2SAT 99; BMI 26.6
--- NOTE | 2021-09-08 16:51 | HMH.EDBURNSM ---
ED Disposition Clinical Impression: Superficial burn of right forearm Qualifiers: Encounter type: initial encounter Qualified Code(s): T22.111A - Burn of first degree of right forearm, initial encounter Disposition: Home, Self-Care Condition on Discharge: Good Instructions: [place] Referrals: Jasmeet Anne MD [Primary Care Provider] - - Critical Care Critical Care Time: No Attestation: On 09/08/21, the high probability of a clinically significant, sudden or life threatening deterioration of the following system(s) required my full and direct attention, intervention and personal management. The time I documented below is in addition to time spent performing reported procedures but includes the following listed in this critical care notation. Medical Decision Making - Medical Records Medical records reviewed: Yes: I reviewed the patient's medical records. - Kel[place] Inquiry Pt receiving controlled substance: Yes Kelton was queried for this patient: No Reason not queried -: Kelton login issues Risks and benefits of using a controlled substance: were discussed with pt by me Vital Signs: 09/08/21 16:34 Temperature 98.4 F Temperature Source Oral Pulse Rate [Left Radial] 83 Respiratory Rate 20 Blood Pressure [Right Arm] 155/111 H Blood Pressure Mean [Right Arm] 125 02 Sat by Pulse Oximetry 99 Orders (Tests/Meds): ED MEDICATIONS Discontinued Medications Generic Name Dose Route Start Last Admin Trade Name Brayden PRN Reason Stop Dose Admin Hydrocodone Bitart/Acetaminophen 2 tab 09/08/21 16:29 09/08/21 16:45 Hydrocodone/Apap 5/325 Mg Tablet PO 09/08/21 16:30 2 tab ONCE ONE Administration Silver Sulfadiazine 10 gm 09/08/21 16:30 09/08/21 16:45 Silver Sulfadiazine Cream 50gm TP 09/08/21 16:31 10 gram ONCE ONE Administration Tetanus/Reduced Diphtheria/Acell Pertussis 0.5 ml 09/08/21 16:29 09/08/21 16:43 Tet/Diphth/Pert-Adult 0.5ml Syringe IM 09/08/21 16:30 0.5 ml .ONCE ONE Administration Medical Decision Narrative: 55-year-old male presenting with a superficial burn to the right forearm. There is no evidence of ischemia or deep burn. Patient is already unroofed the blisters. We will thoroughly irrigate and clean the wound. Silvadene cream was placed over as well as a sterile bandage. The patient will need to follow-up with PCP in 48 hours. Patient was given analgesics in the emergency department. Given strict return precautions. Verbalized understanding. Burn/Smoke HPI - General Chief complaint: Burn/Smoke Inhalation Stated complaint: AO05/11@2000 burn to R miller Time Seen by Provider: 09/08/21 16:40 Mode of Arrival: Ambulatory Limitations: No Limitations Description of Symptoms (Recalled from ER Triage Doc. by RN): pt to ed c/o burn to right forearm. pt states last night at approx 1930 he spilled tomato soup on his arm. pt states he woke up this morning and had blisters on his arm that have busted throughout the day. pt c/o pain to the affected arm. - History of Present Illness HPI Narrative: Is a 55-year-old male presented to the emergency department with a burn to his right forearm. Patient states that last night he spilled some hot soup on the area. Has been having some pain since there. He did wash it and irrigated thoroughly after the incident occurred. He has been complaining of some continued pain in the right forearm. Has not had any discharge. Patient is not up-to-date on tetanus immunization. Denies any other injuries. No headache or change in vision. No focal weakness. No abdominal pain or vomiting. No diarrhea. - Related Data Home Medications Medication Instructions Recorded Confirmed Thiamine HCl [Vitamin B-1] 100 mg PO BID 11/30/20 08/16/21 Apixaban [Eliquis] 5 mg PO BID 03/13/21 08/16/21 Aspirin 81 mg PO DAILY 03/13/21 08/16/21 Furosemide [Furosemide 40MG tAB*] 40 mg PO DAILY 03/13/21 08/16/21 Losartan Potassium [Cozaar 25
[2021-09-08 17:06] VITALS: BP 150/89; PULSE 80; RESP 17; TEMP 36.9; O2SAT 98
== END 2021-09-08 17:07 | disposition home or self-care (01) ==
PROVIDERS: Emergency Provider Emergency Medicine; PCP Emergency Medicine
DX: T22.111A Burn of first degree of right forearm, initial encounter (principal); X10.1XXA Contact with hot food, initial encounter; Z23 Encounter for immunization
CPT/HCPCS: 90715; 96372; 99283

== ENCOUNTER 2021-12-03 09:25 | Emergency (ER) | payer MEDICAID, SELFPAY ==
--- NOTE | 2021-12-03 09:32 | ECG_ITS ---
APPROVED REPORT Exam: Resting ECG HR:67 bpm ECG Measurements Heart Rate 67 AXES NM 180 P 62 QRSd 112 QRS 32 QT 415 T 253 QTc 430 Conclusion SINUS RHYTHM LEFT VENTRICULAR HYPERTROPHY AND ST-T CHANGE -- seen on prior tracings and c/w early repolariztion phenomenon ABNORMAL ECG UNCONFIRMED REPORT Electronically signed by : Rico Moe MD 12/04/2021 09:11:00
--- NOTE | 2021-12-03 09:41 | HMH.EDGENADL ---
ED Disposition Clinical Impression: Syncope and collapse Effusion of olecranon bursa Qualifiers: Laterality: right Qualified Code(s): M25.421 - Effusion, right elbow Elbow contusion Qualifiers: Encounter type: initial encounter Laterality: right Qualified Code(s): S50.01XA - Contusion of right elbow, initial encounter Elbow abrasion Qualifiers: Encounter type: initial encounter Laterality: right Qualified Code(s): S50.311A - Abrasion of right elbow, initial encounter Disposition: Home, Self-Care Condition on Discharge: Good Instructions: DI for Syncope in Adults (Fainting) Additional Instructions: Rory wrap right elbow. Follow-up with orthopedics, Dr. Allison, call Sunday for appointment. Follow-up with cardiology for your fainting spells, call Dr. Salazar's office on Sunday morning to arrange follow-up appointment. Outpatient Holter monitor. Return if symptoms worsening. Referrals: Jasmeet Anne MD [Primary Care Provider] - Bert Allison JR, MD [Physician] - Damian Salazar MD [Staff Physician] - - Critical Care Critical Care Time: No Attestation: On , the high probability of a clinically significant, sudden or life threatening deterioration of the following system(s) required my full and direct attention, intervention and personal management. The time I documented below is in addition to time spent performing reported procedures but includes the following listed in this critical care notation. Medical Decision Making - Medical Records Medical records reviewed: Yes: I reviewed the patient's medical records. MR Comment: Reviewed most recent cardiology office note from 11/10/2021. Reviewed most recent echocardiogram report from 03/14/2021. Reviewed CT angiogram chest report from 03/09/2021. Reviewed cardiac cath report from 11/30/2020, normal coronary arteries. - Kel[place] Inquiry Pt receiving controlled substance: No Vital Signs: 12/03/21 09:53 12/03/21 10:31 12/03/21 11:01 Temperature 97.9 F Temperature Source Oral Pulse Rate 65 67 Pulse Rate [Left Radial] 69 Respiratory Rate 18 16 16 Blood Pressure 135/93 H 130/71 Blood Pressure [Right Arm] 142/90 H Blood Pressure Mean 110 100 Blood Pressure Mean [Right Arm] 107 02 Sat by Pulse Oximetry 98 99 99 Oxygen Delivery Method Room Air - Lab Data Lab Results 12/03/21 09:51: WBC 12.6 H, RBC 4.40 L, Hgb 9.6 L, Hct 31.0 L, MCV 70.5 L, MCH 21.8 L, MCHC 30.9 L, RDW 19.6 H, Plt Count 372, MPV 7.7, Neut % (Auto) 59.9, Lymph % (Auto) 18.5, [place] % (Auto) 8.0, Eos % (Auto) 12.8 H, Baso % (Auto) 0.8, Neut # (Auto) 7.5, Lymph # (Auto) 2.3, [place] # (Auto) 1.0, Eos # (Auto) 1.6 H, Baso # (Auto) 0.1 12/03/21 09:51: Sodium 125 L, Potassium 4.0, Chloride 90 L, Carbon Dioxide 28, Anion Gap 11.0, BUN 7 L, Creatinine 0.80, Estimated Creat Clear 104, Estimated GFR 100, Est GFR ( Amer) 121, Glucose 123 H, Calcium 9.2, Total Bilirubin 0.2, AST 34, ALT 17, Alkaline Phosphatase 111, Troponin I < 0.01, Total Protein 7.9, Albumin 4.2, Globulin 3.7 H, Albumin/Globulin Ratio 1.1 Result diagrams: 12/03/21 09:51 12/03/21 09:51 Orders (Tests/Meds): ED MEDICATIONS Generic Name Dose Route Start Last Admin Trade Name Freq PRN Reason Stop Dose Admin Sodium Chloride 10 ml 12/03/21 09:57 Sodium Chloride 0.9% 10ml Flush Syringe IV 01/02/22 09:56 NEEDED PRN Maintain IV Site ORDERS Category Date Time Status Troponin I Q3H Lab 12/03/21 13:00 Ordered Troponin I Q3H Lab 12/03/21 16:00 Ordered - Radiology Data #1 Image(s): Chest (Preliminary interpretation by me: Multiple broken sternotomy wires, no acute process), Elbow (Soft tissue swelling over olecranon consistent with olecranon effusion. No intra-articular effusion, fracture, or dislocation seen.) Image Reviewed: Yes I reviewed the patient's radiology image, Yes I have reviewed radiologist's interpretation PROCEDURE INFORMATION: Exam: XR Right Elbow E
[2021-12-03 09:53] VITALS: BP 142/90; PULSE 69; RESP 18; TEMP 36.6; O2SAT 98; BMI 23.8
--- NOTE | 2021-12-03 09:57 | XR_ITS ---
PROCEDURE INFORMATION: Exam: XR Chest Exam date and time: 12/03/2021 10:25 AM Age: 56 years old Clinical indication: Cough; Additional info: Cough/syncope yesterday TECHNIQUE: Imaging protocol: Radiologic exam of the chest. Views: 1 view. COMPARISON: CR XR CHEST PORTABLE 03/20/2021 1:49 PM FINDINGS: Lungs: Unremarkable. No consolidation. Pleural spaces: Unremarkable. No pleural effusion. No pneumothorax. Heart/Mediastinum: Unremarkable. No cardiomegaly. Bones/joints: Multiple fractured median sternotomy wires, new since previous. IMPRESSION: 1. Multiple fractured median sternotomy wires, new since previous. 2. No acute process.
--- NOTE | 2021-12-03 09:58 | XR_ITS ---
PROCEDURE INFORMATION: Exam: XR Right Elbow Exam date and time: 12/03/2021 10:25 AM Age: 56 years old Clinical indication: Injury or trauma; Fall; Blunt trauma (contusions or hematomas); Elbow; Right; Additional info: Fall right elbow pain after fall yesterday , swelling noted to posterior elbow TECHNIQUE: Imaging protocol: Radiologic exam of the Right elbow. Views: 3 or more views. COMPARISON: UEAJW/ORT MRI-UP EXT ANY JNT W/O-RT 02/15/2015 7:57 AM FINDINGS: Bones/joints: Significant soft tissue swelling along the olecranon, compatible with distended bursa. Given traumatic history, hemorrhagic bursitis suspected. No acute fracture or dislocation. Soft tissues: See Bones/joints finding. IMPRESSION: Significant soft tissue swelling along the olecranon, compatible with distended bursa. Given traumatic history, hemorrhagic bursitis suspected.
[2021-12-03 10:06] LABS: Basophils # 0.1 K/mm3 (0-0.2); Basophils % 0.8 % (0.1-2.0); Eosinophils # 1.6 K/mm3 (0.0-0.4); Eosinophils % 12.8 % (0.1-12.0); Hemoglobin 9.6 g/dL (14.1-18.0); Lymphocytes # 2.3 K/mm3 (0.7-4.5); Lymphocytes % 18.5 % (10-50); Mean Corpuscular HGB Conc 30.9 g/dL (31.8-35.4); Mean Corpuscular Hemoglobin 21.8 pg (27.0-31.2); Mean Corpuscular Volume 70.5 fl (80-94); Mean Platelet Volume 7.7 fl (7.4-10.4); Neutrophils # 7.5 K/mm3 (1.8-7.8); Neutrophils % 59.9 % (37.0-80.0); Platelet Count 372 K/mm3 (142-424); Red Cell Distribution Width 19.6 % (11.5-17.5); White Blood Count 12.6 K/mm3 (4.8-10.8)
--- NOTE | 2021-12-03 10:16 | PC.NURSE ---
floor tech at bedside for x-ray
[2021-12-03 10:21] LABS: Chloride 90 mmol/L (98-107); Sodium 125 mmol/L (136-145)
[2021-12-03 10:24] LABS: Alanine Aminotransferase 17 U/L (12-78); Albumin Level 4.2 g/dl (3.5-5.0); Albumin/Globulin Ratio 1.1 (1.1-1.8); Alkaline Phosphatase 111 U/L (38-126); Aspartate Amino Transferase 34 U/L (17-59); Bilirubin,Total 0.2 mg/dl (0.2-1.3); Blood Urea Nitrogen 7 mg/dl (9-20); Calcium 9.2 mg/dl (8.4-10.2); Carbon Dioxide 28 mmol/L (22.0-30.0); Creatinine Clearance Estimated 104 mL/min (50-200); Estimated Glomerular Filt Rate 100 ml/min (>60); GFR (African American) 121 ML/MIN (>60); Globulin 3.7 g/dL (1.3-3.2); Glucose 123 mg/dl (74-100); Total Protein,Serum 7.9 g/dl (6.3-8.2)
[2021-12-03 10:31] VITALS: BP 135/93; PULSE 65; RESP 16; O2SAT 99
[2021-12-03 10:43] LABS: Troponin I < 0.01 ng/ml (0.00-0.034)
--- NOTE | 2021-12-03 10:49 | PC.NURSE ---
has been paged.
[2021-12-03 11:01] VITALS: BP 130/71; PULSE 67; RESP 16; O2SAT 99
--- NOTE | 2021-12-03 11:09 | PC.NURSE ---
repaged dr hernandez
--- NOTE | 2021-12-03 11:15 | PC.NURSE ---
speaking to dr hernandez
--- NOTE | 2021-12-03 11:19 | PC.NURSE ---
at the bedside speaking to pt about POC
--- NOTE | 2021-12-03 11:25 | PC.NURSE ---
called [facility] per md request for holter monitor. states they do not have any available but will place pt on waiting list.
--- NOTE | 2021-12-03 11:26 | PC.NURSE ---
called resp for halter monitor. states he will be placed on a waiting list and they will call patient when there is one available. reviewed with pt phone number on file. states this is his correct phone number and also gave a number for SO, which was faxed to resp.
[2021-12-03 11:38] VITALS: BP 128/80; PULSE 62; RESP 18; TEMP 36.6; O2SAT 99
== END 2021-12-03 11:38 | disposition home or self-care (01) ==
PROVIDERS: Emergency Provider Emergency Medicine; PCP Emergency Medicine
DX: R55 Syncope and collapse (principal); M25.421 Effusion, right elbow; S50.01XA Contusion of right elbow, initial encounter; S50.311A Abrasion of right elbow, initial encounter; R05.9 Cough, unspecified; F17.210 Nicotine dependence, cigarettes, uncomplicated
CPT/HCPCS: 71045; 73080; 80053; 84484; 85025; 93005; 99284

== ENCOUNTER → 2021-12-08 14:17 | Outpatient (CLI) | payer MEDICAID, SELFPAY | PROVIDERS: PCP Emergency Medicine; Visit Provider Emergency Medicine | DX: R55 Syncope and collapse (principal) | CPT/HCPCS: 93225 ==

== ENCOUNTER 2022-01-21 11:50 | Emergency (ER) | payer MEDICAID, SELFPAY ==
[2022-01-21 11:51] VITALS: BP 135/74; PULSE 78; RESP 16; TEMP 36.8; O2SAT 98; BMI 36.5
--- NOTE | 2022-01-21 12:03 | HMH.EDGENADL ---
Discharge Plan Disposition Patient Disposition: Home, Self-Care Condition: Good Prescriptions Prescriptions: No Action atorvastatin 80 mg tablet 80 mg PO HS Qty: 90 3RF galcanezumab-gnlm [Emgality Pen] 120 mg/mL pen injector 1 dose SQ DAILY 0RF metoprolol tartrate 25 mg tablet 25 mg PO BID Qty: 60 3RF albuterol sulfate 90 mcg/actuation HFA aerosol inhaler 1 inh INHALATION Q6H PRN (Reason: shortness of breath or wheezing) 90 Days Qty: 8.5 3RF prednisone 20 mg tablet See Rx Instructions .ROUTE .COMPLEX Qty: 15 0RF Rx Instructions: two daily for 5 days, then one daily for 5 days; qkvuiilooa-ugvsxlocwglcm-dlwi [Fioricet] 50-300-40 mg capsule 1 cap PO TID PRN (Reason: headache) Qty: 15 0RF benzonatate 100 mg capsule 100 mg PO TID PRN (Reason: cough) Qty: 90 3RF Emgality Pen 120 mg/mL pen injector 120 mg SQ QMONTH Qty: 1 5RF oltjcpudgk-kvregntw-skpugofeqk 160-9-4.8 mcg/actuation HFA aerosol inhaler 2 inh INHALATION BID Qty: 10.7 12RF hydroxyzine pamoate 50 mg capsule See Rx Instructions .ROUTE .COMPLEX Qty: 90 5RF Dose Instruction: TAKE ONE CAPSULE BY MOUTH THREE TIMES DAILY NEEDED FOR ANXIETY MAY CAUSE DROWSINESS Rx Instructions: TAKE ONE CAPSULE BY MOUTH THREE TIMES DAILY NEEDED FOR ANXIETY MAY CAUSE DROWSINESS amitriptyline 25 mg tablet See Rx Instructions .ROUTE .COMPLEX Qty: 60 6RF Dose Instruction: TAKE TWO TABLETS BY MOUTH EVERY DAY AT BEDTIME Rx Instructions: TAKE TWO TABLETS BY MOUTH EVERY DAY AT BEDTIME ipratropium-albuterol 0.5 mg-3 mg(2.5 mg base)/3 mL solution for nebulization See Rx Instructions .ROUTE .COMPLEX Qty: 360 6RF Dose Instruction: INHALE THE CONTENTS OF 1 VIAL VIA NEBULIZER FOUR TIMES DAILY NEEDED FOR SHORTNESS OF BREATH OR wheezing Rx Instructions: INHALE THE CONTENTS OF 1 VIAL VIA NEBULIZER FOUR TIMES DAILY NEEDED FOR SHORTNESS OF BREATH OR wheezing thiamine HCl (vitamin B1) 100 MG tablet 100 mg PO BID furosemide 40 MG tablet 40 mg PO DAILY losartan 25 MG tablet 25 mg PO DAILY aspirin 81 MG tablet,chewable 81 mg PO DAILY apixaban 5 MG tablet 5 mg PO BID ergocalciferol (vitamin D2) 50,000 UNIT capsule 50,000 units PO WEEKLY Label Comments: TAKE ONE CAPSULE BY MOUTH ONCE A WEEK lansoprazole 30 MG capsule,delayed release(DR/EC) 30 mg PO DAILY loratadine 10 MG capsule 10 mg PO DAILY cariprazine 1.5 MG capsule 1.5 mg PO DAILY Label Comments: TAKE ONE CAPSULE BY MOUTH EVERY DAY Referrals Follow up/Referrals: Jasmeet Anne MD [Primary Care Provider] - See instructions Clinical Impressions Clinical Impression: Acute pain of left shoulder due to trauma Instructions Patient Instructions: DI for Shoulder Pain, How to Use a Sling Discharge ED Provider: Edson Rubio General Adult HPI General Stated complaint: [id number] left shoulder pain Time Seen by Provider: 01/21/22 12:03 History of Present Illness HPI narrative: 56-year-old male history of alcohol abuse, presents with pain in the left arm after a fall that occurred yesterday, has sling that he had at home. Denies hitting head denies loss of consciousness, numbness tingling or other symptoms. Pain is in the proximal humerus, has normal range of motion no pain at the elbow or wrist. Pain is worse with movement, rated as moderate Related Data Home Medications Medication Instructions Recorded Confirmed thiamine HCl (vitamin B1) 100 mg 100 mg PO BID Supplement 11/30/20 01/03/22 tablet apixaban 5 mg tablet 5 mg PO BID Blood thinner/mitral 03/13/21 01/03/22 valve replacement aspirin 81 mg chewable tablet 81 mg PO DAILY heart health 03/13/21 01/03/22 furosemide 40 mg tablet 40 mg PO DAILY Edema/diuretic 03/13/21 01/03/22 losartan 25 mg tablet 25 mg PO DAILY Hypertension 03/13/21 01/03/22 cariprazine 1.5 mg capsule 1.5 mg P
--- NOTE | 2022-01-21 12:18 | XR_ITS ---
PROCEDURE INFORMATION: Exam: XR Left Shoulder Exam date and time: 01/21/2022 12:19 PM Age: 56 years old Clinical indication: Injury or trauma; Fall; Blunt trauma (contusions or hematomas); Shoulder; Left; Additional info: Fall, shoulder pain TECHNIQUE: Imaging protocol: Radiologic exam of the Left shoulder. Views: 2 or more views. COMPARISON: CR XR CHEST PORTABLE 12/03/2021 10:25 AM FINDINGS: Bones/joints: Lateral downward angulation of the acromion with respect to the humeral head. Mild AC degenerative arthritic type changes. Soft tissues: Normal. IMPRESSION: No evidence of acute osseous injury.
[2022-01-21 12:56] VITALS: BMI 26.6
[2022-01-21 13:23] VITALS: BP 123/56; PULSE 87; RESP 16; TEMP 36.6; O2SAT 98
== END 2022-01-21 13:23 | disposition home or self-care (01) ==
PROVIDERS: Emergency Provider Emergency Medicine; PCP Emergency Medicine
DX: M25.512 Pain in left shoulder (principal); R06.02 Shortness of breath; R51.9 Headache, unspecified; F41.9 Anxiety disorder, unspecified; F17.210 Nicotine dependence, cigarettes, uncomplicated; Z79.01 Long term (current) use of anticoagulants; Z79.51 Long term (current) use of inhaled steroids; Z79.52 Long term (current) use of systemic steroids; Z79.82 Long term (current) use of aspirin; Z79.899 Other long term (current) drug therapy; Z88.0 Allergy status to penicillin; W17.89XA Other fall from one level to another, initial encounter
CPT/HCPCS: 73030; 96372; 99284

== ENCOUNTER → 2022-02-01 11:24 | Outpatient (CLI) | payer MEDICAID, SELFPAY ==
--- NOTE | 2022-02-01 11:28 | XR_ITS ---
FINAL REPORT CLINICAL HISTORY: cp/dyspnea COMPARISON: December 03, 2021 FINDINGS: Two views of the chest were obtained. Cardiomegaly is noted. There has been prior median sternotomy. There is mild scarring. No acute pulmonary abnormality is identified. There is no pneumothorax. The bony thorax is intact. IMPRESSION: No acute cardiopulmonary process. Reviewed, Interpreted and Dictated by Jigar Hewitt III, MD Transcribed by Rosendo Ojeda Authenticated and [facility]
[2022-02-01 12:35] LABS: Basophils # 0.1 K/mm3 (0-0.2); Basophils % 0.7 % (0.1-2.0); Eosinophils % 8.3 % (0.1-12.0); Hematocrit 27.5 % (42.0-52.0); Hemoglobin 8.4 g/dL (14.1-18.0); Lymphocytes # 2.9 K/mm3 (0.7-4.5); Lymphocytes % 24.2 % (10-50); Mean Corpuscular HGB Conc 30.4 g/dL (31.8-35.4); Mean Corpuscular Hemoglobin 20.9 pg (27.0-31.2); Mean Corpuscular Volume 68.8 fl (80-94); Mean Platelet Volume 7.6 fl (7.4-10.4); Monocytes # 0.8 K/mm3 (0.1-1.0); Monocytes % 6.6 % (1.7-9.3); Neutrophils # 7.1 K/mm3 (1.8-7.8); Neutrophils % 60.1 % (37.0-80.0); Platelet Count 427 K/mm3 (142-424); Red Cell Distribution Width 19.7 % (11.5-17.5); White Blood Count 11.8 K/mm3 (4.8-10.8)
[2022-02-01 13:19] LABS: Alanine Aminotransferase 19 U/L (12-78); Alkaline Phosphatase 119 U/L (38-126); Anion Gap 18.8 mEq/L (5-15); Aspartate Amino Transferase 39 U/L (17-59); Bilirubin,Unconjugated 0.1 mg/dL (0.0-1.1); Blood Urea Nitrogen 10 mg/dl (9-20); Calcium 8.6 mg/dl (8.4-10.2); Carbon Dioxide 25 mmol/L (22.0-30.0); Chloride 80 mmol/L (98-107); Chol/HDL Ratio 1.6 (1-3.5); Cholesterol 116 mg/dl (140-200); Estimated Glomerular Filt Rate 87 ml/min (>60); GFR (African American) 106 ML/MIN (>60); Glucose 86 mg/dl (74-100); HDL Cholesterol 71 mg/dl (40-60); Magnesium 1.6 mg/dl (1.6-2.3); Potassium 4.8 mmoL/L (3.5-5.1); Sodium 119 mmol/L (136-145); Triglycerides 71 mg/dl (30-150); VLDL Cholesterol 14 mg/dL (0-40)
[2022-02-01 13:22] LABS: Bilirubin,Total < 0.1 mg/dl (0.2-1.3)
[2022-02-01 13:23] LABS: Bilirubin,Indirect 0.1 mg/dL (0.0-0.9)
[2022-02-01 13:29] LABS: Direct LDL Cholesterol 34.55 mg/dL (100-129)
[2022-02-01 13:35] LABS: Free T4 (Free Thyroxine) 1.16 ng/dl (0.78-2.19)
[2022-02-01 13:49] LABS: Thyroid Stimulating Hormone 3.05 uIU/mL (0.465-4.68)
== END ==
PROVIDERS: PCP Emergency Medicine; Visit Provider Nurse Practitioner Family
DX: R06.02 Shortness of breath (principal); R07.89 Other chest pain; I10 Essential (primary) hypertension; I65.23 Occlusion and stenosis of bilateral carotid arteries; E78.2 Mixed hyperlipidemia; G47.33 Obstructive sleep apnea (adult) (pediatric); J44.9 Chronic obstructive pulmonary disease, unspecified; Z95.2 Presence of prosthetic heart valve; Z95.3 Presence of xenogenic heart valve; I71.20 Thoracic aortic aneurysm, without rupture, unspecified
CPT/HCPCS: 36415; 71046; 80048; 80061; 80076; 83735; 84439; 84443; 85025

== ENCOUNTER 2022-02-16 17:28 | Emergency (ER) | payer MEDICAID, SELFPAY ==
[2022-02-16 19:20] VITALS: BP 155/80; PULSE 76; RESP 19; TEMP 37.1; O2SAT 100; BMI 27.3
--- NOTE | 2022-02-16 19:24 | EXP.UTC ---
Discharge Plan Disposition Patient Disposition: Home, Self-Care Condition: Good Prescriptions Prescriptions: No Action atorvastatin 80 mg tablet 80 mg PO HS Qty: 90 3RF hydrocodone-acetaminophen 7.5-325 mg tablet 1 tab PO BID PRN (Reason: pain) Qty: 20 0RF metoprolol tartrate 25 mg tablet 25 mg PO BID Qty: 60 3RF albuterol sulfate 90 mcg/actuation HFA aerosol inhaler 1 inh INHALATION Q6H PRN (Reason: shortness of breath or wheezing) 90 Days Qty: 8.5 3RF eweszrpuvk-uqsynxowyxdzn-lbus [Fioricet] 50-300-40 mg capsule 1 cap PO TID PRN (Reason: headache) Qty: 15 0RF benzonatate 100 mg capsule 100 mg PO TID PRN (Reason: cough) Qty: 90 3RF prednisone 20 mg tablet See Rx Instructions .ROUTE .COMPLEX Qty: 15 0RF Rx Instructions: two daily for 5 days, one daily for 5 days Emgality Pen 120 mg/mL pen injector 120 mg SQ QMONTH Qty: 1 5RF ymhqjwowbc-jjyhcrne-xxoicqchwj 160-9-4.8 mcg/actuation HFA aerosol inhaler 2 inh INHALATION BID Qty: 10.7 12RF amitriptyline 25 mg tablet See Rx Instructions .ROUTE .COMPLEX Qty: 60 6RF Dose Instruction: TAKE TWO TABLETS BY MOUTH EVERY DAY AT BEDTIME Rx Instructions: TAKE TWO TABLETS BY MOUTH EVERY DAY AT BEDTIME ipratropium-albuterol 0.5 mg-3 mg(2.5 mg base)/3 mL solution for nebulization See Rx Instructions .ROUTE .COMPLEX Qty: 360 6RF Dose Instruction: INHALE THE CONTENTS OF 1 VIAL VIA NEBULIZER FOUR TIMES DAILY NEEDED FOR SHORTNESS OF BREATH OR wheezing Rx Instructions: INHALE THE CONTENTS OF 1 VIAL VIA NEBULIZER FOUR TIMES DAILY NEEDED FOR SHORTNESS OF BREATH OR wheezing hydroxyzine pamoate 50 mg capsule See Rx Instructions .ROUTE .COMPLEX Qty: 90 5RF Dose Instruction: TAKE ONE CAPSULE BY MOUTH THREE TIMES DAILY NEEDED FOR ANXIETY MAY CAUSE DROWSINESS Rx Instructions: TAKE ONE CAPSULE BY MOUTH THREE TIMES DAILY NEEDED FOR ANXIETY MAY CAUSE DROWSINESS loratadine 10 mg tablet See Rx Instructions .ROUTE .COMPLEX Qty: 90 5RF Dose Instruction: TAKE ONE TABLET BY MOUTH EVERY DAY FOR ALLERGY symptoms Rx Instructions: TAKE ONE TABLET BY MOUTH EVERY DAY FOR ALLERGY symptoms Eliquis 5 mg tablet See Rx Instructions .ROUTE .COMPLEX Qty: 180 5RF Dose Instruction: TAKE ONE TABLET BY MOUTH TWICE DAILY Rx Instructions: TAKE ONE TABLET BY MOUTH TWICE DAILY furosemide 40 mg tablet See Rx Instructions .ROUTE .COMPLEX Qty: 90 5RF Dose Instruction: TAKE ONE TABLET BY MOUTH EVERY DAY Rx Instructions: TAKE ONE TABLET BY MOUTH EVERY DAY lansoprazole 30 mg capsule,delayed release(DR/EC) See Rx Instructions .ROUTE .COMPLEX Qty: 90 5RF Dose Instruction: TAKE ONE CAPSULE BY MOUTH EVERY DAY FOR Gerd Rx Instructions: TAKE ONE CAPSULE BY MOUTH EVERY DAY FOR Gerd Vraylar 1.5 mg capsule See Rx Instructions .ROUTE .COMPLEX Qty: 90 5RF Dose Instruction: TAKE ONE CAPSULE BY MOUTH EVERY DAY Rx Instructions: TAKE ONE CAPSULE BY MOUTH EVERY DAY thiamine HCl (vitamin B1) 100 MG tablet 100 mg PO BID losartan 25 MG tablet 25 mg PO DAILY aspirin 81 MG tablet,chewable 81 mg PO DAILY ergocalciferol (vitamin D2) 50,000 UNIT capsule 50,000 units PO WEEKLY Label Comments: TAKE ONE CAPSULE BY MOUTH ONCE A WEEK Referrals Follow up/Referrals: Jasmeet Anne MD [Primary Care Provider] - See instructions Activity Restrictions/Add. Instructions Additional Instructions/Restrictions: They will call you tomorrow with time to be here for Venous Doppler Make sure to follow up with your Family Doctor as you said you would Return if needed Straight to ER if any life threatening symptoms, shortness of breath or chest pain Clinical Impressions Clinical Impression: Contusion Qualifiers: Encounter type: initial encounter Contusion area: upper arm Instructions Patient Instructions: C
[2022-02-16 20:13] VITALS: BP 155/80; PULSE 76; RESP 19; TEMP 37.1
== END 2022-02-16 20:18 | disposition home or self-care (01) ==
PROVIDERS: Emergency Provider Nurse Practitioner; PCP Emergency Medicine
DX: T14.8XXA Other injury of unspecified body region, initial encounter (principal); S40.022A Contusion of left upper arm, initial encounter
CPT/HCPCS: 99212; G0463

== ENCOUNTER → 2022-02-17 13:53 | Outpatient (CLI) | payer MEDICAID, SELFPAY ==
--- NOTE | 2022-02-17 14:00 | CA_ITS ---
FINAL REPORT TECHNIQUE: Graded compression, spectral analysis and ultrasound images of the venous system of the upper extremity were obtained. CLINICAL HISTORY: PAIN/BRUISING UPPER LEFT ARM,S/P FALL SEVERAL WEEKS AGO,PT ON BLOOD THINERS FINDINGS: The jugular vein, subclavian vein, axillary vein, brachial vein, cephalic vein and basilic venous system are fully compressible and demonstrate no evidence of thrombosis. IMPRESSION: No evidence of thrombosis of the venous system of the left upper extremity. Reviewed, Interpreted and Dictated by Jigar Hewitt III, MD Transcribed by Kaylee Lamb Authenticated and [facility]
== END ==
PROVIDERS: PCP Emergency Medicine; Visit Provider Nurse Practitioner
DX: S40.022A Contusion of left upper arm, initial encounter (principal)
CPT/HCPCS: 93971

== ENCOUNTER → 2022-02-23 14:18 | Outpatient (CLI) | payer MEDICAID, SELFPAY ==
[2022-02-23 14:55] LABS: Basophils # 0.1 K/mm3 (0-0.2); Basophils % 0.7 % (0.1-2.0); Eosinophils # 1.4 K/mm3 (0.0-0.4); Eosinophils % 10.5 % (0.1-12.0); Hematocrit 30.1 % (42.0-52.0); Hemoglobin 8.2 g/dL (14.1-18.0); Lymphocytes # 2.8 K/mm3 (0.7-4.5); Mean Corpuscular HGB Conc 27.3 g/dL (31.8-35.4); Mean Corpuscular Hemoglobin 19.8 pg (27.0-31.2); Mean Corpuscular Volume 72.6 fl (80-94); Mean Platelet Volume 6.5 fl (7.4-10.4); Monocytes % 7.6 % (1.7-9.3); Neutrophils # 7.6 K/mm3 (1.8-7.8); Neutrophils % 59.1 % (37.0-80.0); Platelet Count 439 K/mm3 (142-424); Red Blood Count 4.14 M/mm3 (4.60-6.20); Red Cell Distribution Width 18.6 % (11.5-17.5); White Blood Count 12.8 K/mm3 (4.8-10.8)
[2022-02-23 15:58] LABS: Iron 19 ug/dL (49-181)
[2022-02-23 16:07] LABS: Total Iron Binding Capacity 554 ug/dL (261-462)
[2022-02-23 16:34] LABS: Ferritin 11.3 ng/ml (17.9-464)
[2022-02-23 17:01] LABS: Vitamin B12 538 pg/mL (239-931)
[2022-02-23 17:03] LABS: Folate 8.84 ng/mL
== END ==
PROVIDERS: PCP Emergency Medicine; Visit Provider Internal Medicine Medical Oncology
DX: D50.8 Other iron deficiency anemias (principal)
CPT/HCPCS: 36415; 82607; 82728; 82746; 83540; 83550; 85025

== ENCOUNTER → 2022-02-28 11:26 | Outpatient (CLI) | payer MEDICAID, SELFPAY ==
--- NOTE | 2022-02-28 11:32 | XR_ITS ---
FINAL REPORT CLINICAL HISTORY: shoulder pain COMPARISON: December 2021 FINDINGS: LEFT SHOULDER Three views demonstrate no acute fracture or dislocation. There is mild AC joint degenerative change. The visualized bony structures are well aligned. No soft tissue abnormality is seen. IMPRESSION: Mild AC joint degenerative change. Reviewed, Interpreted and Dictated by Jigar Hewitt III, MD Transcribed by Rosendo Ojeda Authenticated and [facility]
== END ==
PROVIDERS: PCP Emergency Medicine; Visit Provider Orthopaedic Surgery
DX: M25.512 Pain in left shoulder (principal)
CPT/HCPCS: 73030

== ENCOUNTER → 2022-03-01 08:48 | Outpatient (CLI) | payer MEDICAID, SELFPAY ==
--- NOTE | 2022-03-01 08:52 | MR_ITS ---
FINAL REPORT CLINICAL HISTORY: rotator cuff injury. PATIENT FELL 3 WEEKS AGO AND HIT SHOULDER. LIMITED ROM. WEAKNESS IN ARM. FINDINGS: Multiplanar MR imaging of the left shoulder was performed without contrast. Motion on many of the images decreases exam sensitivity. There is a complete tear of the distal supraspinatus tendon with retraction to the medial humeral head. There is a full-thickness tear of the anterior distal infraspinatus tendon. There is a complete tear of the subscapularis tendon with retraction to the medial humeral head. There is mild supraspinatus and infraspinatus muscle atrophy. There is increased signal in the subscapularis muscle worrisome for uxrt-bz-gibycflw muscle injury. There is moderate AC joint degenerative change. A large amount of fluid is seen in the joint and the subacromial/subdeltoid bursa. The labrum is obscured by motion. A posterior labral tear cannot be excluded. There is tendinosis and probable partial tear of the long head of the biceps tendon. There is no evidence of fracture or dislocation. There is no evidence of soft tissue mass. IMPRESSION: Complete tears with retraction of the supraspinatus and subscapularis tendons. Full-thickness infraspinatus tendon tear. Findings worrisome for mild to moderate subscapularis muscle injury. Labrum obscured by motion. Posterior labral tear not excluded. Tendinosis and probable partial tear of the biceps tendon. Moderate AC joint arthrosis. Reviewed, Interpreted and Dictated by Jigar Hewitt III, MD Transcribed by Rosendo Ojeda Authenticated and [facility]
== END ==
PROVIDERS: PCP Emergency Medicine; Visit Provider Family Medicine
DX: M25.512 Pain in left shoulder (principal); S46.002A Unspecified injury of muscle(s) and tendon(s) of the rotator cuff of left shoulder, initial encounter
CPT/HCPCS: 73221

== ENCOUNTER → 2022-03-20 12:27 | Outpatient (CLI) | payer MEDICAID, SELFPAY ==
[2022-03-20 13:25] LABS: Basophils # 0.1 K/mm3 (0-0.2); Basophils % 0.8 % (0.1-2.0); Eosinophils # 0.7 K/mm3 (0.0-0.4); Eosinophils % 7.5 % (0.1-12.0); Hematocrit 26.2 % (42.0-52.0); Lymphocytes # 2.5 K/mm3 (0.7-4.5); Lymphocytes % 26.1 % (10-50); Mean Corpuscular HGB Conc 30.6 g/dL (31.8-35.4); Mean Corpuscular Hemoglobin 20.3 pg (27.0-31.2); Mean Corpuscular Volume 66.3 fl (80-94); Mean Platelet Volume 6.8 fl (7.4-10.4); Monocytes # 0.8 K/mm3 (0.1-1.0); Monocytes % 8.1 % (1.7-9.3); Neutrophils # 5.4 K/mm3 (1.8-7.8); Neutrophils % 57.5 % (37.0-80.0); Platelet Count 387 K/mm3 (142-424); Red Blood Count 3.96 M/mm3 (4.60-6.20); Red Cell Distribution Width 19.8 % (11.5-17.5); White Blood Count 9.4 K/mm3 (4.8-10.8)
[2022-03-20 13:51] LABS: Iron 14 ug/dL (49-181)
[2022-03-20 14:00] LABS: Total Iron Binding Capacity 507 ug/dL (261-462)
[2022-03-20 14:27] LABS: Ferritin 6.89 ng/ml (17.9-464)
== END ==
PROVIDERS: PCP Emergency Medicine; Visit Provider Internal Medicine Medical Oncology
DX: D50.9 Iron deficiency anemia, unspecified (principal)
CPT/HCPCS: 36415; 82728; 83540; 83550; 85025

== ENCOUNTER 2022-03-28 10:36 | Day surgery (SDC) | payer MEDICAID, SELFPAY ==
[2022-03-24 14:01] VITALS: BMI 27.5
--- NOTE | 2022-03-24 14:11 | SUR.PREOP ---
SPOKE TO PATIENT AND HIS GIRLFRIEND, BOTH MADE AWARE THAT PT IS TO STOP HIS ELIQUIS THREE DAYS PRIOR TO PROCEDURE PER CARDS CLEARANCE FROM DR AMANDA'S OFFICE.
[2022-03-28 10:53] VITALS: BP 181/98; PULSE 109; RESP 22; TEMP 36.1; O2SAT 97
--- NOTE | 2022-03-28 11:01 | P.PN_ITS ---
PFSH PFS Medical History Anemia COPD exacerbation ETOH abuse HLD (hyperlipidemia) HTN (hypertension) Hypoglycemia Lung infiltrate Rotator cuff arthropathy Seizure Surgical History H/O left knee surgery Family History Other No significant family history Social History Smoking Status: Current every day smoker tobacco type: cigarettes packs per day: 1 second hand exposure: Yes alcohol intake: former substance use type: denies use current occupational status: unemployed Travel in the last 8 weeks: None household members: significant other housing: apartment number of children: 1 current occupational exposures/hazards: No caffeine: Yes [facility] Anesthesia Checklist Patient Identification Patient Identification: Arm Band and Verbal (Name & ) Structural Data Admitted From: Home Planned Operative Procedure/s: EGD/Colonoscopy Consent for Planned Operative Procedure(s) Verified: Yes NPO Status Verified Time NPO: 00:00 Additional verifications Anesthesia Reactions: No Hx Blood Transfusions: No Blood Transfusion Reaction: No Airway Assessment C-Spine Mobility Assessed: Yes TMJ Mobility Assessed: Yes Dentition: Poor Dentition Neurological Assessment Level of Consciousness: Awake Hx Seizures: No Numbness or tingling in extremities: No Anesthesia Plan Anesthesia Risk discussed: Yes Anesthesia Plan: Verified ASA Class: IV Anesthesia Type: MAC
[2022-03-28 11:04] VITALS: O2SAT 97
--- NOTE | 2022-03-28 11:46 | HMH.SCOPE ---
Procedure: Date: 03/28/22 Patient Date of :: 1965 Procedure Performed:: Esophagogastroduodenoscopy with biopsy Colonoscopy with polypectomy Indications:: Anemia Performing Provider:: Neel Shelton MD Referring Provider:: . Sedation:: Monitored anesthesia care Procedure:: After informed consent was obtained the patient was taken to the endoscopy suite. Sedation ensued after the patient was transferred to the left lateral decubitus position. Pulse, blood pressure, and oxygen saturation were monitored throughout the procedure. The endoscope was advanced beyond the duodenal bulb. Retroflexion within the gastric lumen was accomplished. The gastroscope was carefully removed. Digital rectal exam revealed no significant abnormality. The colonoscope was placed in position. The entire colon was evaluated. The colonoscope was carefully removed and the patient was transferred to recovery in stable condition. Please see findings and specimens below for detail. Findings:: Distal esophagitis Early Schatzki ring Large sliding hiatal hernia Hemorrhoidal tags/cushions Mild scattered sigmoid diverticulosis Bowel preparation fair Profound lack of relaxation Polyp at 55 cm Specimens:: Antral biopsy Biopsy distal esophagus (33 cm) Sessile polyp at 55 cm (cold snare) Recommendations:: Timing of repeat colonoscopy is pending pathology but likely be between 2-3 years secondary to profound lack of relaxation. Further evaluation with regard to anemia pending (UGI/SBFT, capsule endoscopy, etc.) Complications:: No immediate Estimated blood obtained (mL): 1
[2022-03-28 11:48] VITALS: BP 115/73; PULSE 108; RESP 24; TEMP 36.7; O2SAT 95
[2022-03-28 11:58] VITALS: BP 98/60; PULSE 107; RESP 21; O2SAT 96
[2022-03-28 12:08] VITALS: BP 101/62; PULSE 94; RESP 22; O2SAT 96
[2022-03-28 12:18] VITALS: BP 102/60; PULSE 96; RESP 23; O2SAT 93
== END 2022-03-28 12:35 | disposition home or self-care (01) ==
PROVIDERS: PCP Emergency Medicine; Visit Provider Surgery
PROC: 0DJ08ZZ Inspection of Upper Intestinal Tract, Via Natural or Artificial Opening Endoscopic (ICD-10-PCS; CPT 43235; principal; 2022-03-28 11:30)
DX: D64.9 Anemia, unspecified (principal); D12.6 Benign neoplasm of colon, unspecified; K20.90 Esophagitis, unspecified without bleeding; K44.9 Diaphragmatic hernia without obstruction or gangrene; Z72.0 Tobacco use; Z79.899 Other long term (current) drug therapy
CPT/HCPCS: 43239; 45385; J2704

== ENCOUNTER → 2022-04-10 09:30 | Outpatient (CLI) | payer MEDICAID, SELFPAY ==
--- NOTE | 2022-04-10 09:33 | FL_ITS ---
FINAL REPORT CLINICAL HISTORY: dysphagia, ft 1:38 FINDINGS: ESOPHAGRAM HISTORY: . Difficulty swallowing. PROCEDURE: The patient ingested barium. Effervescent crystals were also administered. Spot and overhead films were obtained. Fluoroscopy time: 1 minute 38 seconds. 15 RADIOGRAPHS WERE OBTAINED. FINDINGS: . No esophageal stricture is identified. A 13 mm barium tablet passes through the esophagus and into the stomach without delay. There is prominent mucosa seen of the distal esophagus and esophagitis is not excluded. There is a small sliding-type hiatal hernia with gastroesophageal reflux. Incidental note is made of a prominent cricopharyngeal muscle. Esophageal dysmotility was demonstrated during the exam. IMPRESSION: Small sliding-type hiatal hernia with gastroesophageal reflux. Abnormal mucosa of the distal esophagus. Esophagitis not excluded. Films reviewed , interpreted and dictated by Dr. Hewitt. Transcribed by Huoston Barillas PA-C. Reviewed, Interpreted and Dictated by Jigar Hewitt III, MD Transcribed by SIL Barnhart Authenticated and [facility]
== END ==
PROVIDERS: PCP Emergency Medicine; Visit Provider Surgery
DX: R13.10 Dysphagia, unspecified (principal)
CPT/HCPCS: 74220

== ENCOUNTER → 2022-04-12 09:41 | Outpatient (CLI) | payer MEDICAID, SELFPAY ==
--- NOTE | 2022-04-12 09:41 | CT_ITS ---
FINAL REPORT TECHNIQUE: Thin section axial CT images were obtained from the lung apices to the upper abdomen. IV contrast was administered. MIP 3-D reformats were obtained. This study was performed with techniques to keep radiation doses as low as reasonably achievable (ALARA). Individualized dose reduction techniques using automated exposure control or adjustment of mA and/or kV according to the patient's size were employed. CLINICAL HISTORY: Evaluate thoracic aneurysm FINDINGS: Postoperative changes are seen from sternotomy. The heart size is normal. There is no adenopathy. There is no filling defect to suggest PE. The ascending aorta measures up to 4.4 cm. There is no aortic dissection. There is no pericardial effusion. There is mild ground-glass opacity. There is a 5 mm nodule in the medial right lung base. No pleural effusion. Limited images of the upper abdomen demonstrate a small hiatal hernia. IMPRESSION: Ascending aorta measures up to 4.4 cm. Mild ground-glass opacity may represent edema or alveolitis. 5 mm medial right lung base nodule. Recommend follow-up CT in 12 months. Reviewed, Interpreted and Dictated by Jigar Hewitt III, MD Transcribed by Rosendo Ojeda Authenticated and . [facility]
[2022-04-12 10:17] LABS: Blood Urea Nitrogen 2 mg/dl (9-20); Estimated Glomerular Filt Rate 117 ml/min (>60); GFR (African American) 141 ML/MIN (>60)
== END ==
PROVIDERS: PCP Emergency Medicine; Visit Provider Nurse Practitioner
DX: I71.20 Thoracic aortic aneurysm, without rupture, unspecified (principal)
CPT/HCPCS: 36415; 71275; 82565; 84520; Q9967

== ENCOUNTER → 2022-04-14 08:28 | Outpatient (CLI) | payer MEDICAID, SELFPAY ==
--- NOTE | 2022-04-14 08:29 | FL_ITS ---
FINAL REPORT CLINICAL HISTORY: dysphagia, ft 3:22 FINDINGS: UPPER GI WITH SBFT HISTORY: Dysphagia. Epigastric pain. PROCEDURE: The patient ingested barium. Effervescent crystals were also administered. Spot and overhead films were obtained. Additional barium was administered for a SBFT. FLUOROSCOPY TIME: 3 minutes 22 seconds. 25 radiographs were obtained. FINDINGS: No esophageal stricture is identified. There is prominent mucosa seen of the distal esophagus and esophagitis is not excluded. There is a small sliding-type hiatal hernia with gastroesophageal reflux. Esophageal dysmotility was demonstrated during the exam. The stomach empties appropriately. Imaging of the duodenum was unremarkable. Small bowel loops are normal in caliber without mucosal abnormality identified. Contrast is identified in the colon within 1 hour. IMPRESSION: Small sliding-type hiatal hernia with gastroesophageal reflux. Irregular mucosa of the distal esophagus. Esophagitis not excluded. Unremarkable small bowel follow-through. Films reviewed , interpreted and dictated by Dr. Hewitt. Transcribed by [place] Barillas PA-C. Reviewed, Interpreted and Dictated by Jigar Hewitt III, MD Transcribed by SIL Barnhart Authenticated and [facility]
== END ==
PROVIDERS: PCP Emergency Medicine; Visit Provider Surgery
DX: R13.10 Dysphagia, unspecified (principal)
CPT/HCPCS: 74246; 74248

== ENCOUNTER → 2022-06-19 11:20 | Outpatient (CLI) | payer MEDICAID, SELFPAY ==
[2022-06-19 13:31] LABS: Basophils # 0.1 K/mm3 (0-0.2); Basophils % 1.2 % (0.1-2.0); Eosinophils # 1.6 K/mm3 (0.0-0.4); Eosinophils % 18.6 % (0.1-12.0); Hemoglobin 13.7 g/dL (14.1-18.0); Lymphocytes # 2.5 K/mm3 (0.7-4.5); Lymphocytes % 28.2 % (10-50); Mean Corpuscular HGB Conc 32.5 g/dL (31.8-35.4); Mean Corpuscular Hemoglobin 27.3 pg (27.0-31.2); Mean Corpuscular Volume 84.1 fl (80-94); Mean Platelet Volume 8.4 fl (7.4-10.4); Monocytes # 0.9 K/mm3 (0.1-1.0); Monocytes % 10.2 % (1.7-9.3); Neutrophils # 3.7 K/mm3 (1.8-7.8); Neutrophils % 41.8 % (37.0-80.0); Platelet Count 275 K/mm3 (142-424); Red Cell Distribution Width 23.3 % (11.5-17.5); White Blood Count 8.8 K/mm3 (4.8-10.8)
== END ==
PROVIDERS: PCP Family Medicine; Visit Provider Family Medicine
DX: R53.83 Other fatigue (principal)
CPT/HCPCS: 85025

== ENCOUNTER → 2022-08-04 13:29 | Outpatient (CLI) | payer MEDICAID, SELFPAY | PROVIDERS: PCP Family Medicine; Visit Provider Nurse Practitioner Family | DX: Z95.2 Presence of prosthetic heart valve (principal); I65.23 Occlusion and stenosis of bilateral carotid arteries; E78.2 Mixed hyperlipidemia; F10.19 Alcohol abuse with unspecified alcohol-induced disorder; I10 Essential (primary) hypertension; Z95.3 Presence of xenogenic heart valve; I71.20 Thoracic aortic aneurysm, without rupture, unspecified | CPT/HCPCS: 93306 ==

== ENCOUNTER → 2022-09-05 13:03 | Outpatient (CLI) | payer MEDICAID, SELFPAY ==
[2022-09-05 14:21] LABS: Iron 206 ug/dL (49-181)
[2022-09-05 14:26] LABS: Basophils # 0.1 K/mm3 (0-0.2); Basophils % 0.8 % (0.1-2.0); Eosinophils # 2.1 K/mm3 (0.0-0.4); Eosinophils % 19.7 % (0.1-12.0); Hematocrit 41.7 % (42.0-52.0); Hemoglobin 13.7 g/dL (14.1-18.0); Lymphocytes # 3.2 K/mm3 (0.7-4.5); Lymphocytes % 29.5 % (10-50); Mean Corpuscular HGB Conc 32.9 g/dL (31.8-35.4); Mean Corpuscular Volume 94.1 fl (80-94); Monocytes # 0.9 K/mm3 (0.1-1.0); Monocytes % 8.4 % (1.7-9.3); Neutrophils # 4.5 K/mm3 (1.8-7.8); Neutrophils % 41.6 % (37.0-80.0); Platelet Count 220 K/mm3 (142-424); Red Blood Count 4.43 M/mm3 (4.60-6.20); Red Cell Distribution Width 15.4 % (11.5-17.5); White Blood Count 10.8 K/mm3 (4.8-10.8)
[2022-09-05 14:32] LABS: Total Iron Binding Capacity 313 ug/dL (261-462)
[2022-09-05 14:58] LABS: Ferritin 210 ng/ml (17.9-464)
== END ==
PROVIDERS: PCP Emergency Medicine; Visit Provider Internal Medicine Medical Oncology
DX: D50.9 Iron deficiency anemia, unspecified (principal)
CPT/HCPCS: 36415; 82728; 83540; 83550; 85025

== ENCOUNTER 2022-11-15 07:55 | Emergency (ER) | payer MEDICAID, SELFPAY ==
[2022-11-15 08:01] VITALS: BP 150/96; PULSE 52; O2SAT 94
[2022-11-15 08:10] VITALS: BP 150/96; PULSE 72; RESP 16; TEMP 36.4; O2SAT 97; BMI 23.6
--- NOTE | 2022-11-15 08:10 | CT_ITS ---
FINAL REPORT TECHNIQUE: Thin section axial images were obtained through the abdomen after intravenous contrast. Reconstruction images were obtained from the axial data. Exam was performed using dose reduction techniques. CLINICAL HISTORY: fall, on eliquis, RUQ/Rib pain COMPARISON: 02/23/2017 FINDINGS: There is bibasilar atelectasis. The liver is homogeneous. The gallbladder is present. The spleen, adrenal glands, and pancreas are unremarkable. There is a moderate hiatal hernia. There is no hydronephrosis or solid renal mass. Abdominal GI tract is without acute abnormality. There is no abdominal lymphadenopathy or ascites. There is no small bowel obstruction or focal wall thickening. The prostate is unremarkable. The appendix is not visualized but there are no secondary findings to suggest appendicitis. The pelvic GI tract is normal. There is no pelvic lymphadenopathy or ascites. No acute osseous abnormalities identified. IMPRESSION: No evidence of solid organ injury or GI tract injury. No acute abnormality. Reviewed, Interpreted and Dictated by Daysi Davies MD Transcribed by Kaylee Lamb Authenticated and [facility]
--- NOTE | 2022-11-15 08:12 | HMH.EDGENADL ---
Discharge Plan Disposition Patient Disposition: Home, Self-Care Prescriptions Prescriptions: No Action nicotine 21 mg/24 hr patch 24 hour 1 patch transdermal DAILY Qty: 28 6RF [id number]-bmjtiygdwinsb-wicz [Fioricet] 50-300-40 mg capsule 1 cap PO TID PRN (Reason: headache) Qty: 15 0RF ferrous sulfate [FeroSul] 325 mg (65 mg iron) tablet 325 mg PO BID Patient Comments: TAKE ONE TABLET BY MOUTH TWICE DAILY Breztri Aerosphere 160-9-4.8 mcg/actuation HFA aerosol inhaler See Rx Instructions .ROUTE .COMPLEX Qty: 10.7 12RF Dose Instruction: INHALE TWO PUFFS BY MOUTH TWICE DAILY FOR COPD Rx Instructions: INHALE TWO PUFFS BY MOUTH TWICE DAILY FOR COPD albuterol sulfate 90 mcg/actuation HFA aerosol inhaler 1 inh INHALATION Q6H PRN (Reason: shortness of breath or wheezing) 90 Days Qty: 8.5 3RF hydroxyzine pamoate 50 mg capsule See Rx Instructions .ROUTE .COMPLEX Qty: 90 5RF Dose Instruction: TAKE ONE CAPSULE BY MOUTH THREE TIMES DAILY NEEDED FOR ANXIETY MAY CAUSE DROWSINESS Rx Instructions: TAKE ONE CAPSULE BY MOUTH THREE TIMES DAILY NEEDED FOR ANXIETY MAY CAUSE DROWSINESS thiamine HCl (vitamin B1) 100 mg tablet See Rx Instructions .ROUTE .COMPLEX Qty: 60 11RF Dose Instruction: TAKE ONE TABLET BY MOUTH TWICE DAILY Rx Instructions: TAKE ONE TABLET BY MOUTH TWICE DAILY hydrocodone-acetaminophen 7.5-325 mg tablet 1 tab PO BID PRN (Reason: pain) Qty: 60 0RF butenafine [Lotrimin Ultra] 1 % cream 1 applic topical BID Qty: 30 10RF amitriptyline 25 mg tablet See Rx Instructions .ROUTE .COMPLEX Qty: 60 6RF Dose Instruction: TAKE TWO TABLETS BY MOUTH EVERY DAY AT BEDTIME Rx Instructions: TAKE TWO TABLETS BY MOUTH EVERY DAY AT BEDTIME furosemide 40 mg tablet 40 mg PO DAILY Rx Instructions: TAKE ONE TABLET BY MOUTH EVERY DAY atorvastatin 80 mg tablet 80 mg PO DAILY Rx Instructions: TAKE ONE TABLET BY MOUTH EVERY DAY AT BEDTIME FOR high cholesterol lansoprazole 30 mg capsule,delayed release(DR/EC) 30 mg PO DAILY Rx Instructions: TAKE ONE CAPSULE BY MOUTH EVERY DAY FOR Gerd losartan 25 mg tablet 25 mg PO DAILY Rx Instructions: TAKE ONE TABLET BY MOUTH EVERY DAY metoprolol tartrate 50 mg tablet 50 mg PO DAILY Rx Instructions: TAKE ONE TABLET BY MOUTH TWICE DAILY ergocalciferol (vitamin D2) 1,250 mcg (50,000 unit) capsule 1,250 mcg PO DAILY Rx Instructions: TAKE ONE CAPSULE BY MOUTH ONCE a WEEK FOR supplement loratadine 10 mg tablet 10 mg PO DAILY Rx Instructions: TAKE ONE TABLET BY MOUTH EVERY DAY FOR ALLERGY symptoms Eliquis 5 mg tablet 5 mg PO DAILY Rx Instructions: TAKE ONE TABLET BY MOUTH TWICE DAILY Vraylar 1.5 mg capsule 1.5 mg PO DAILY Rx Instructions: TAKE ONE CAPSULE BY MOUTH EVERY DAY aspirin 81 MG tablet,chewable 81 mg PO DAILY Referrals Follow up/Referrals: Luigi Enciso APRN [Primary Care Provider] - See instructions Activity Restrictions/Add. Instructions Additional Instructions/Restrictions: There is no evidence of any intrathoracic or intra-abdominal hemorrhaging or any solid organ injury from your recent fall. No evidence of any acute injury of the chest including no evidence of any rib fractures. Supportive care as discussed. Follow-up with primary care doctor. He may take wfkp-qkm-nrhwavy pain medicine as needed for your symptoms. Clinical Impressions Clinical Impression: Chest wall contusion, Abdominal wall contusion, Traumatic ecchymosis of abdominal wall Discharge ED Provider: Zoran Arguello General Adult HPI General Chief complaint: Fall Stated complaint: Fall@home 11/11 RT rib pain Time Seen by Provider: 11/15/22 08:04 History of Present Illness HPI narrative: Patient is a 57-year-old male on antiplatelet therapy and anticoagulation here status post fall
--- NOTE | 2022-11-15 08:20 | PC.NURSE ---
staff at [facility]
[2022-11-15 08:30] LABS: Basophils % 0.3 % (0.1-2.0); Eosinophils # 1.5 K/mm3 (0.0-0.4); Eosinophils % 11.6 % (0.1-12.0); Hematocrit 44.1 % (42.0-52.0); Lymphocytes # 2.2 K/mm3 (0.7-4.5); Lymphocytes % 16.6 % (10-50); Mean Corpuscular HGB Conc 31.8 g/dL (31.8-35.4); Mean Corpuscular Hemoglobin 30.2 pg (27.0-31.2); Mean Corpuscular Volume 95.2 fl (80-94); Mean Platelet Volume 7.6 fl (7.4-10.4); Monocytes % 7.3 % (1.7-9.3); Neutrophils # 8.4 K/mm3 (1.8-7.8); Neutrophils % 64.1 % (37.0-80.0); Platelet Count 260 K/mm3 (142-424); Red Blood Count 4.63 M/mm3 (4.60-6.20); Red Cell Distribution Width 14.4 % (11.5-17.5); White Blood Count 13.1 K/mm3 (4.8-10.8)
[2022-11-15 08:40] LABS: Alanine Aminotransferase 23 U/L (12-78); Albumin Level 4.7 g/dl (3.5-5.0); Albumin/Globulin Ratio 1.2 (1.1-1.8); Alkaline Phosphatase 97 U/L (38-126); Anion Gap 15.3 mEq/L (5-15); Aspartate Amino Transferase 43 U/L (17-59); Bilirubin,Total 0.5 mg/dl (0.2-1.3); Blood Urea Nitrogen 14 mg/dl (9-20); Carbon Dioxide 26 mmol/L (22.0-30.0); Chloride 93 mmol/L (98-107); Creatinine Clearance Estimated 90 mL/min (50-200); Estimated Glomerular Filt Rate 87 ml/min (>60); GFR (African American) 105 ML/MIN (>60); Globulin 3.8 g/dL (1.3-3.2); Glucose 90 mg/dl (74-100); Lipase 118 U/L (23-300); Potassium 4.3 mmoL/L (3.5-5.1); Sodium 130 mmol/L (136-145); Total Protein,Serum 8.5 g/dl (6.3-8.2)
[2022-11-15 08:41] LABS: Microscopic, Urine URINE MICROSCOPIC (MICROSCOPIC)
[2022-11-15 08:43] LABS: Appearance,Urine CLEAR (Clear); Bilirubin,Urine Negative (Negative); Blood, Urine Negative (Negative); Color,Urine YELLOW (Yellow); Glucose,Urine (UA) Negative (Negative); Ketones,Urine Negative (Negative); Leukocyte Esterase,Urine Negative (Negative); Nitrate,Urine Negative (Negative); PH,Urine 6.5 (5.0-8.5); Protein,Urine Negative (Negative); Urobilinogen,Urine 0.2 EU/dl (0.2)
[2022-11-15 08:55] LABS: Bacteria,Urine Trace /lpf; Squamous Epithelial Cell,Urine Occasional #/hpf (0-5)
--- NOTE | 2022-11-15 09:36 | PC.NURSE ---
Dr. Milligan at [facility]
[2022-11-15 10:00] VITALS: BP 104/77; PULSE 36; O2SAT 97
[2022-11-15 10:32] VITALS: BP 133/73; PULSE 56; O2SAT 99
--- NOTE | 2022-11-15 11:10 | CT_ITS ---
FINAL REPORT TECHNIQUE: Thin section axial images were obtained from the thoracic inlet through the upper abdomen after intravenous contrast injection. Reconstruction images were obtained from the axial data. Exam was performed using dose reduction technique. CLINICAL HISTORY: FALL, RIB PAIN, ON ELIQUIS COMPARISON: 04/12/2022 FINDINGS: There is no evidence of pulmonary embolism or aortic dissection. The ascending aorta is dilated measuring 4.3 cm, unchanged. There is no evidence of mediastinal hemorrhage. There is no mediastinal, hilar, or axillary lymphadenopathy. There is no pleural or pericardial effusion. There is a moderate hiatal hernia. There are reticular nodular opacities in the superior segment of the left lower lobe, favor infectious or inflammatory. There is a less than 5 mm posterior right upper lobe nodule well seen on image 26, unchanged. There is dependent atelectasis bilaterally. There is no pneumothorax. There are mild compression deformities involving several lower thoracic vertebral bodies, unchanged. There are old anterior right rib fractures. No acute osseous abnormality identified. IMPRESSION: No acute traumatic injury of the chest. New reticular nodular opacities in the superior segment of the left lower lobe, favor infectious or inflammatory. Reviewed, Interpreted and Dictated by Daysi Davies MD Transcribed by Kaylee Lamb Authenticated and . [facility]
[2022-11-15 11:23] VITALS: PULSE 83; O2SAT 94
--- NOTE | 2022-11-15 11:43 | PC.NURSE ---
rounded on pt at this time. no needs voiced.
[2022-11-15 12:52] VITALS: BP 139/95; PULSE 79; RESP 16; TEMP 36.7
== END 2022-11-15 12:53 | disposition home or self-care (01) ==
PROVIDERS: Student in an Organized Health Care Education/Training Program; Emergency Provider Emergency Medicine; PCP Nurse Practitioner Family
DX: S20.211A Contusion of right front wall of thorax, initial encounter (principal); S30.1XXA Contusion of abdominal wall, initial encounter; J44.9 Chronic obstructive pulmonary disease, unspecified; I10 Essential (primary) hypertension; E78.5 Hyperlipidemia, unspecified; F17.210 Nicotine dependence, cigarettes, uncomplicated; Z79.01 Long term (current) use of anticoagulants; Z79.02 Long term (current) use of antithrombotics/antiplatelets; W18.2XXA Fall in (into) shower or empty bathtub, initial encounter
CPT/HCPCS: 71260; 74177; 80053; 81001; 83690; 85025; 96361; 96374; 96375; 99285; J2405; Q9967

== ENCOUNTER → 2023-01-12 10:30 | Outpatient (CLI) | payer MEDICAID, SELFPAY ==
[2023-01-12 13:49] LABS: Amphetamine/Metha Screen,Urine Negative ng/ml (<1000)
[2023-01-12 13:50] LABS: Barbiturates Screen,Urine Negative ng/ml (<200); Benzodiazepines Screen,Urine Negative ng/ml (<200)
[2023-01-12 13:51] LABS: Cannabinoid Screen,Urine Negative ng/ml (<50)
[2023-01-12 13:56] LABS: Cocaine Screen,Urine Negative ng/ml (<300)
[2023-01-12 13:57] LABS: Methadone Screen,Urine Negative ng/ml (<300); Opiate Screen,Urine Positive ng/ml (<300)
[2023-01-12 13:58] LABS: Phencyclidine Screen,Urine Negative ng/ml (<25)
== END ==
PROVIDERS: PCP Nurse Practitioner Family; Visit Provider Nurse Practitioner Family
DX: Z79.899 Other long term (current) drug therapy (principal)
CPT/HCPCS: 80305

== ENCOUNTER → 2023-02-03 09:51 | Outpatient (CLI) | payer MEDICAID, SELFPAY ==
--- NOTE | 2023-02-03 09:51 | MR_ITS ---
PROCEDURE INFORMATION: Exam: MR Left Upper Extremity Joint Without Contrast; Shoulder Exam date and time: 02/03/2023 10:18 AM Age: 57 years old Clinical indication: Pain; Shoulder; Left; Additional info: Increased L shoulder pain TECHNIQUE: Imaging protocol: Magnetic resonance imaging of the left upper extremity without contrast. Exam focused on the shoulder. COMPARISON: MR SHOULDER LT WO CON 03/01/2022 9:01 AM FINDINGS: Limitations: The study is motion degraded. Bones/joints: There is a high-riding humeral head abutting the undersurface of the acromion. Moderate acromioclavicular joint osteoarthritic changes are stable. High-grade chondromalacia centrally in the glenoid is unchanged. Large amount of fluid in the glenohumeral joint extending to the subacromial/subdeltoid space bursa via the rotator cuff tear is again present. No fracture visible. Glenoid labrum: Probable nondisplaced superior labral tearing with degeneration. Supraspinatus tendon: Full-thickness supraspinatus tear with retraction to the level of the glenohumeral joint is unchanged. Infraspinatus tendon: Full-thickness tearing of the anterior fibers of infraspinatus with a few intact posterior fibers is unchanged. The torn fibers are again retracted to the level of the glenohumeral joint. Subscapularis tendon: Complete tear of subscapularis with retraction to the glenohumeral joint is also again present. Teres minor tendon: Unremarkable. No evidence of tear. Tendon of biceps brachii: Unremarkable. No evidence of tear. Glenohumeral ligaments: Unremarkable. Soft tissues: There is marked fatty atrophy of supraspinatus and subscapularis. Infraspinatus has mild fatty atrophy. This is progressive since the previous study. IMPRESSION: 1. Progressive marked atrophy of supraspinatus and subscapularis with mild infraspinatus atrophy since previous exam. Full-thickness rotator cuff tears involving supraspinatus, infraspinatus and subscapularis with retraction to the glenohumeral joint are unchanged. 2. The superior labrum is degenerated with nondisplaced tearing suspected. 3. Moderate acromioclavicular and marked glenohumeral joint arthrosis is unchanged. Stable large glenohumeral joint effusion.
== END ==
PROVIDERS: PCP Nurse Practitioner Family; Visit Provider Nurse Practitioner Family
DX: M25.512 Pain in left shoulder (principal)
CPT/HCPCS: 73221

== ENCOUNTER 2023-03-03 20:49 | Inpatient (IN) | payer MEDICAID, SELFPAY ==
[2023-03-03 20:50] VITALS: BP 139/94; PULSE 81; RESP 20; TEMP 36.7; O2SAT 94; BMI 25.9
--- NOTE | 2023-03-03 20:58 | ECG_ITS ---
APPROVED REPORT Exam: Resting ECG HR:76 bpm ECG Measurements Heart Rate 76 AXES MD 193 P 58 QRSd 116 QRS 64 QT 401 T 254 QTc 431 Conclusion SINUS RHYTHM MODERATE INTRAVENTRICULAR CONDUCTION DELAY [110+ ms QRS DURATION] ST DEVIATION AND MODERATE T-WAVE ABNORMALITY, CONSIDER ANTEROLATERAL ISCHEMIA [-0.1+ mV T-WAVE IN V3-V6] ST DEVIATION AND MODERATE T-WAVE ABNORMALITY, CONSIDER INFERIOR ISCHEMIA [-0.1+ mV T-WAVE IN II/aVF] ABNORMAL ECG UNCONFIRMED REPORT Electronically signed by : Rico Moe MD 03/05/2023 17:51:08
[2023-03-03 21:00] VITALS: BP 140/91; RESP 14; O2SAT 96
[2023-03-03 21:26] LABS: Basophils # 0.1 K/mm3 (0-0.2); Basophils % 0.3 % (0.1-2.0); Eosinophils # 0.4 K/mm3 (0.0-0.4); Hematocrit 39.3 % (42.0-52.0); Hemoglobin 13.9 g/dL (14.1-18.0); Lymphocytes % 14.6 % (10-50); Mean Corpuscular HGB Conc 35.2 g/dL (31.8-35.4); Mean Corpuscular Hemoglobin 31.7 pg (27.0-31.2); Mean Corpuscular Volume 90.1 fl (80-94); Monocytes % 5.1 % (1.7-9.3); Neutrophils # 15.8 K/mm3 (1.8-7.8); Platelet Count 220 K/mm3 (142-424); Red Blood Count 4.36 M/mm3 (4.60-6.20); Red Cell Distribution Width 14.1 % (11.5-17.5); White Blood Count 20.2 K/mm3 (4.8-10.8)
[2023-03-03 21:30] VITALS: BP 132/83; PULSE 78; RESP 18; O2SAT 94
[2023-03-03 21:36] LABS: MANUAL DIFFERENTIAL MANUAL DIFFERENTIAL (MANUAL DIFF)
--- NOTE | 2023-03-03 21:37 | CT_ITS ---
PROCEDURE INFORMATION: Exam: CT Head Without Contrast Exam date and time: 03/03/2023 10:00 PM Age: 57 years old Clinical indication: Injury or trauma; Fall; Additional info: Multiple falls on thinners TECHNIQUE: Imaging protocol: Computed tomography of the head without contrast. Radiation optimization: All CT scans at this facility use at least one of these dose optimization techniques: automated exposure control; mA and/or kV adjustment per patient size (includes targeted exams where dose is matched to clinical indication); or iterative reconstruction. REPORTING DATA: Count of CT and Cardiac NM exams in prior 12 months: This patient has received 3 known CTs and 0 known cardiac nuclear medicine studies in the 12 months prior to the current study. COMPARISON: MR HEAD/BRAIN WO CON 04/14/2021 5:19 PM FINDINGS: Brain: No intracranial hemorrhage. Mild atrophic changes of the ventricles and subarachnoid spaces. Mild chronic small-vessel ischemic changes noted. No mass, mass effect or midline shift. Intracranial atherosclerotic changes are noted. Cerebral ventricles: See Brain finding. Paranasal sinuses: Visualized sinuses are unremarkable. No fluid levels. Mastoid air cells: Visualized mastoid air cells are well aerated. Bones/joints: See Soft tissues finding. Soft tissues: Small scalp hematoma adjacent to the lateral superior right frontal bone mild scalp soft tissue swelling noted adjacent to the posterior left parietal bone. No underlying skull fracture. IMPRESSION: 1. No acute intracranial abnormality. Chronic changes as above. 2. Small scalp hematoma on the right and mild scalp soft tissue swelling posteriorly on the left. No underlying skull fracture.
--- NOTE | 2023-03-03 21:37 | CT_ITS ---
PROCEDURE INFORMATION: Exam: CT Cervical Spine Without Contrast Exam date and time: 03/03/2023 10:02 PM Age: 57 years old Clinical indication: Injury or trauma; Fall; Additional info: Fall, syncope TECHNIQUE: Imaging protocol: Computed tomography of the cervical spine without contrast. Radiation optimization: All CT scans at this facility use at least one of these dose optimization techniques: automated exposure control; mA and/or kV adjustment per patient size (includes targeted exams where dose is matched to clinical indication); or iterative reconstruction. REPORTING DATA: Count of CT and Cardiac NM exams in prior 12 months: This patient has received 3 known CTs and 0 known cardiac nuclear medicine studies in the 12 months prior to the current study. COMPARISON: CT HEAD/BRAIN WO CON 03/03/2023 10:[address] chest 11/15/2022 FINDINGS: Bones/joints: No acute fracture. Old-appearing mild compression deformities of T1 and T2 similar to the prior chest CT. Normal alignment. No significant disc bulge or herniation. No severe spinal canal stenosis. No significant neural foraminal narrowing. Lungs: Lung apices are normal. Soft tissues: Unremarkable. IMPRESSION: No acute findings.
--- NOTE | 2023-03-03 21:38 | XR_ITS ---
PROCEDURE INFORMATION: Exam: XR Chest Exam date and time: 03/03/2023 9:43 PM Age: 57 years old Clinical indication: Pain; Other: AMS; Additional info: Syncope, AMS TECHNIQUE: Imaging protocol: Radiologic exam of the chest. Views: 2 views. COMPARISON: CT CHEST W CON 11/15/2022 11:17 AM FINDINGS: Lungs: Subtle areas of opacity in the right mid lung findings concerning for mild pneumonia. No consolidation. Pleural spaces: Unremarkable. No pleural effusion. No pneumothorax. Heart/Mediastinum: Midline sternotomy. No cardiomegaly. Bones/joints: Unremarkable. IMPRESSION: Subtle areas of opacity in the right mid lung findings concerning for mild pneumonia.
[2023-03-03 21:42] LABS: Ammonia 19 umol/L (9-30)
[2023-03-03 21:50] LABS: Eosinophils % 1 % (0-3); Lymphocytes % 16 % (10-50); Monocytes % 4 % (2-9); Neutrophils % 79 % (42-76); Platelet Estimate Normal; RBC Morphology Normal; Total Cells Counted 100
--- NOTE | 2023-03-03 22:00 | PC.NURSE ---
Inquired to MD about need for blood cultures, MD declined to order at this time
[2023-03-03 22:30] VITALS: PULSE 77; RESP 30; O2SAT 97
[2023-03-03 22:56] LABS: Chloride 78 mmol/L (98-107); Potassium 3.7 mmoL/L (3.5-5.1); Sodium 117 mmol/L (136-145)
[2023-03-03 22:59] LABS: Alanine Aminotransferase 24 U/L (12-78); Albumin Level 4.6 g/dl (3.5-5.0); Albumin/Globulin Ratio 1.4 (1.1-1.8); Alkaline Phosphatase 78 U/L (38-126); Aspartate Amino Transferase 41 U/L (17-59); Bilirubin,Total 0.9 mg/dl (0.2-1.3); Blood Urea Nitrogen 12 mg/dl (9-20); Calcium 8.7 mg/dl (8.4-10.2); Creatinine Clearance Estimated 89 mL/min (50-200); Estimated Glomerular Filt Rate 77 ml/min (>60); GFR (African American) 93 ML/MIN (>60); Globulin 3.4 g/dL (1.3-3.2); Glucose 89 mg/dl (74-100)
[2023-03-03 23:00] VITALS: PULSE 80; RESP 18; O2SAT 97
[2023-03-03 23:00] LABS: Magnesium 1.6 mg/dl (1.6-2.3); Phosphorous 3.4 mg/dl (2.5-4.5)
[2023-03-03 23:02] LABS: Anion Gap 14.7 mEq/L (5-15); Carbon Dioxide 28 mmol/L (22.0-30.0)
[2023-03-03 23:05] LABS: INR 1.11 (0.9-1.1); Prothrombin Time 11.9 seconds (10.1-12.5)
[2023-03-03 23:19] LABS: Free T4 (Free Thyroxine) 1.25 ng/dl (0.78-2.19)
[2023-03-03 23:19] LABS: Troponin I < 0.01 ng/ml (0.00-0.034)
[2023-03-03 23:31] LABS: Thyroid Stimulating Hormone 1.17 uIU/mL (0.465-4.68)
--- NOTE | 2023-03-03 23:54 | HMH.EDGENADL ---
Discharge Plan Disposition Patient Disposition: Admitted Clinical Impressions Clinical Impression: Pneumonia Discharge ED Provider: Armani Samuel Adult HPI General Chief complaint: Syncope Stated complaint: fainted Time Seen by Provider: 03/03/23 21:38 Mode of Arrival: Ambulatory Source of Information: Patient and Spouse Limitations: No Limitations Description of Symptoms (Recalled from ER Triage Doc. by RN): pt reports 2 syncopal episodes the past 3 days, reports hitting head with both episodes. History of Present Illness HPI narrative: The patient, presents with a chief complaint of recurrent episodes of passing out, with the most recent episode occurring today. The patient reports that these episodes have been worsening, with the first episode occurring on Sunday evening. During these episodes, the patient loses consciousness for approximately two to three seconds and takes about three minutes to regain full awareness. There is no reported seizure-like activity associated with these episodes. The patient is currently on blood thinners, although the specific medication and the last dose taken were not mentioned. The indication for blood thinner use is unclear. The patient has experienced confusion following the episodes, such as believing the date to be January 21 on after the Sunday episode. The patient denies any chest pain, neck pain, or pain in the arms, legs, or back. However, they report a headache and localized head pain. No vision changes were mentioned. The patient has bruises on their face from the first fall and denies any pain in the mouth or tongue biting. The patient fell straight back during both episodes. Related Data Home Medications Medication Instructions Recorded Confirmed aspirin 81 mg chewable tablet 81 mg PO DAILY heart health 03/13/21 03/04/23 apixaban 5 mg tablet (Eliquis) 5 mg PO DAILY Blood thinner 03/24/22 03/04/23 atorvastatin 80 mg tablet 80 mg PO DAILY HLD 03/24/22 03/04/23 cariprazine 1.5 mg capsule 1.5 mg PO DAILY MOOD 03/24/22 03/04/23 (Vraylar) ergocalciferol (vitamin D2) 1,250 1,250 mcg PO DAILY Supplement 03/24/22 03/04/23 mcg (50,000 unit) capsule furosemide 40 mg tablet 40 mg PO DAILY Fluid 03/24/22 03/04/23 lansoprazole 30 mg capsule,delayed 30 mg PO DAILY GERD 03/24/22 03/04/23 release loratadine 10 mg tablet 10 mg PO DAILY ALLERGIES 03/24/22 03/04/23 losartan 25 mg tablet 25 mg PO DAILY HTN 03/24/22 03/04/23 metoprolol tartrate 50 mg tablet 50 mg PO DAILY HTN 03/24/22 03/04/23 ferrous sulfate 325 mg (65 mg 325 mg PO BID 04/04/22 03/04/23 iron) tablet (FeroSul) Previous Rx's Medication Instructions Recorded ismhpotpke-scvgftqwfulgb-xtkobrnr 1 cap PO TID PRN headache #15 caps 12/19/21 50 mg-300 mg-40 mg capsule (Fioricet) nicotine 21 mg/24 hr daily 1 patch transdermal DAILY #28 ea 06/19/22 transdermal patch albuterol sulfate 90 mcg/actuation 1 inh inhalation Q6H PRN shortness 08/29/22 aerosol inhaler of breath or wheezing 90 days #8.5 grams budesonide 160 mcg-glycopyr 9 See Rx Instructions .Route 08/29/22 mcg-formot 4.8 mcg/actuation HFA .COMPLEX #10.7 grams inhaler (Breztri Aerosphere) thiamine HCl (vitamin B1) 100 mg See Rx Instructions .Route 09/27/22 tablet .COMPLEX #60 tabs amitriptyline 25 mg tablet See Rx Instructions .Route 10/30/22 .COMPLEX #60 tabs butenafine 1 % topical cream 1 applic topical BID #30 grams 11/16/22 (Lotrimin Ultra) varenicline 0.5 mg (11)-1 mg (42) See Rx Instructions PO PER PKG DIR 12/15/22 tablets in a dose pack (Chantix #53 tabs Starting Month Box) naproxen 500 mg tablet 500 mg PO BID #30 tabs 01/12/23 prednisone 20 mg tablet 20 mg PO BID 5 days #10 tabs 01/12/23 hydroxyzine pamoate 50 mg capsule See Rx Instructions .Route 02/06/23 .COMPLEX #90 caps hydrocodone 7.5 mg-acetaminophen 1 tab PO BID PRN pain #60 tabs 02/13/23 325 mg tablet Allergies Allergy/AdvReac Type Severity Reaction S
--- NOTE | 2023-03-03 23:55 | PC.NURSE ---
large ampunt of ecchymosis noted to right orbit and both temporal areas from previous falls.
[2023-03-04] VITALS (17 sets, daily range): BP systolic 125–178; BP diastolic 86–125; PULSE 70–101; RESP 12–26; TEMP 36.5–37.2; O2SAT 93–99; BMI 25.0
--- NOTE | 2023-03-04 00:15 | PC.NURSE ---
Patient to be admitted, [facility] house supervisor notified for bed assignment.
--- NOTE | 2023-03-04 00:40 | PC.NURSE ---
Patient arrived to floor via wheelchair at 00:39.
--- NOTE | 2023-03-04 00:54 | PC.NURSE ---
pt transfered from [facility] to [facility] - report gave to goldie bonner
--- NOTE | 2023-03-04 00:59 | EXP.HP ---
History of Present Illness *Admission Date: 03/04/23 *Reason for visit:: Syncope *History of present illness: This is a 57 yo M with PMHx of chronic heavy alcoholism, smoker. COPD HTN. CAD, HLD, Aortic valve stenosis s/p replacement on is presented to ER with a chief complaint of recurrent episodes of passing out, with the most recent episode occurring today. The patient reports that these episodes have been worsening, with the first episode occurring on Sunday evening. During these episodes, the patient loses consciousness for approximately two to three seconds and takes about three minutes to regain full awareness. There is no reported seizure-like activity associated with these episodes. Patient reported also been drinking alcohol, but does not attribute the episode to his alcohol habits. patient had an average of 12 daily beers. Currently denies any chest pain, neck pain, or pain in the arms, legs, or back. However, they report a headache and localized head pain with bruises on their face and right orbit from the first fall. Admitted for further management and treatment [facility] Disclaimer: The information contained in this section may have been updated after the patient was seen, as this information can be updated by other users. Medical History Anemia COPD (chronic obstructive pulmonary disease) COPD exacerbation COPD mixed type Dyspnea on exertion ETOH abuse Has been smoking for 30 years History of asthma HLD (hyperlipidemia) HTN (hypertension) Hypoglycemia Lung infiltrate Lung nodule Rotator cuff arthropathy Seasonal allergies Seizure Surgical History H/O left knee surgery History of colonoscopy History of esophagogastroduodenoscopy (EGD) History of open heart surgery Family History Other Alcoholism Diabetes History of asthma Hyperlipidemia Hypertension Social History (Updated 03/04/23 @ 01:48 EST by Francia Estrada RN) Smoking Status: Current every day smoker tobacco type: cigarettes packs per day: 1 second hand exposure: Yes alcohol intake: current substance use type: denies use current occupational status: unemployed Travel in the last 8 weeks: None household members: significant other housing: apartment number of children: 1 current occupational exposures/hazards: No caffeine: Yes Review of Systems Review of Systems Review of systems:: pertinent systems reviewed and negative unless documented below Meds Home Medications and Allergies Home Medications Medication Instructions Recorded Confirmed Type aspirin 81 mg chewable tablet 81 mg PO DAILY Coronary Artery 03/13/21 03/04/23 History Disease apixaban 5 mg tablet (Eliquis) 5 mg PO BID Blood thinner 03/24/22 03/04/23 History atorvastatin 80 mg tablet 80 mg PO HS Cholesterol 03/24/22 03/04/23 History cariprazine 1.5 mg capsule 1.5 mg PO DAILY MOOD 03/24/22 03/04/23 History (Vrrichilar) ergocalciferol (vitamin D2) 1,250 1,250 mcg PO WEEKLY Supplement 03/24/22 03/04/23 History mcg (50,000 unit) capsule furosemide 40 mg tablet 40 mg PO DAILY Fluid 03/24/22 03/04/23 History lansoprazole 30 mg capsule,delayed 30 mg PO DAILY Acid Reflux 03/24/22 03/04/23 History release loratadine 10 mg tablet 10 mg PO DAILY Allergy Symptoms 03/24/22 03/04/23 History losartan 25 mg tablet 25 mg PO DAILY High Blood Pressure 03/24/22 03/04/23 History metoprolol tartrate 50 mg tablet 50 mg PO BID High Blood Pressure 03/24/22 03/04/23 History ferrous sulfate 325 mg (65 mg 325 mg PO BID Supplement 04/04/22 03/04/23 History iron) tablet (FeroSul) albuterol sulfate 90 mcg/actuation 1 inh inhalation Q6HP PRN 03/04/23 03/04/23 History aerosol inhaler shortness of breath or wheezing amitriptyline 25 mg tablet 50 mg PO HS Insomnia 03/04/23 03/04/23 History budesonide
[2023-03-04 01:03] LABS: Chloride 83 mmol/L (98-107)
[2023-03-04 01:04] LABS: Potassium 3.7 mmoL/L (3.5-5.1); Sodium 118 mmol/L (136-145)
[2023-03-04 01:06] LABS: Alanine Aminotransferase 20 U/L (12-78); Aspartate Amino Transferase 45 U/L (17-59); Blood Urea Nitrogen 11 mg/dl (9-20); Creatinine Clearance Estimated 124 mL/min (50-200); Estimated Glomerular Filt Rate 116 ml/min (>60); GFR (African American) 141 ML/MIN (>60)
[2023-03-04 01:07] LABS: Adenovirus,PCR Not Detected (NotDetected); Coronavirus 19, PCR Not Detected (NotDetected); Coronavirus 229E Not Detected (NotDetected); Coronavirus NL63 Not Detected (NotDetected); Coronavirus OC43 Not Detected (NotDetected); Coronovirus HKU1,PCR Not Detected (NotDetected); Human Metapneumovirus Not Detected (NotDetected); Influenza A, PCR Not Detected (NotDetected); Influenza AH1, 2009 Not Detected (NotDetected); Influenza AH1, PCR Not Detected (NotDetected); Influenza AH3,PCR Not Detected (NotDetected); Influenza B, PCR Not Detected (NotDetected); Parainfluenza 1, PCR Not Detected (NotDetected); Parainfluenza 2, PCR Not Detected (NotDetected); Parainfluenza 3, PCR Not Detected (NotDetected); Parainfluenza 4, PCR Not Detected (NotDetected); Respiratory Syncytial Virus Not Detected (NotDetected); Rhinovirus/Enterovirus Not Detected (NotDetected)
[2023-03-04 01:07] LABS: Albumin Level 4.3 g/dl (3.5-5.0); Albumin/Globulin Ratio 1.4 (1.1-1.8); Alkaline Phosphatase 82 U/L (38-126); Anion Gap 16.7 mEq/L (5-15); Bilirubin,Total 0.7 mg/dl (0.2-1.3); Calcium 8.6 mg/dl (8.4-10.2); Carbon Dioxide 22 mmol/L (22.0-30.0); Glucose 95 mg/dl (74-100); Total Protein,Serum 7.3 g/dl (6.3-8.2)
[2023-03-04 01:08] LABS: Phosphorous 3.4 mg/dl (2.5-4.5)
[2023-03-04 01:19] LABS: Basophils % 0.3 % (0.1-2.0); Eosinophils # 0.6 K/mm3 (0.0-0.4); Eosinophils % 4.1 % (0.1-12.0); Hematocrit 38.4 % (42.0-52.0); Hemoglobin 13.6 g/dL (14.1-18.0); Lymphocytes # 2.7 K/mm3 (0.7-4.5); Lymphocytes % 18.3 % (10-50); Mean Corpuscular HGB Conc 35.3 g/dL (31.8-35.4); Mean Corpuscular Hemoglobin 31.7 pg (27.0-31.2); Mean Corpuscular Volume 89.9 fl (80-94); Mean Platelet Volume 7.6 fl (7.4-10.4); Monocytes # 0.8 K/mm3 (0.1-1.0); Monocytes % 5.5 % (1.7-9.3); Neutrophils # 10.5 K/mm3 (1.8-7.8); Neutrophils % 71.8 % (37.0-80.0); Platelet Count 206 K/mm3 (142-424); Red Blood Count 4.27 M/mm3 (4.60-6.20); Red Cell Distribution Width 14.2 % (11.5-17.5); White Blood Count 14.6 K/mm3 (4.8-10.8)
[2023-03-04 01:26] LABS: INR 1.09 (0.9-1.1); Prothrombin Time 11.7 seconds (10.1-12.5)
[2023-03-04 01:47] LABS: Troponin I < 0.01 ng/ml (0.00-0.034)
[2023-03-04 02:19] LABS: Microscopic, Urine URINE MICROSCOPIC (MICROSCOPIC)
[2023-03-04 02:30] LABS: Appearance,Urine CLEAR (Clear); Bilirubin,Urine Negative (Negative); Blood, Urine Negative (Negative); Color,Urine YELLOW (Yellow); Glucose,Urine (UA) Negative (Negative); Ketones,Urine Negative (Negative); Leukocyte Esterase,Urine Negative (Negative); Nitrate,Urine Negative (Negative); Protein,Urine Negative (Negative); Specific Gravity, Urine <= 1.005 (1.005-1.030); Urobilinogen,Urine 0.2 EU/dl (0.2)
[2023-03-04 02:44] LABS: Squamous Epithelial Cell,Urine Occasional #/hpf (0-5); WBC,Urine Occasional #/hpf (0-3)
[2023-03-04 03:46] LABS: Troponin I 0.02 ng/ml (0.00-0.034)
[2023-03-04 04:19] LABS: Chloride 84 mmol/L (98-107); Potassium 3.9 mmoL/L (3.5-5.1); Sodium 120 mmol/L (136-145)
[2023-03-04 04:22] LABS: Alanine Aminotransferase 20 U/L (12-78); Albumin/Globulin Ratio 1.2 (1.1-1.8); Alkaline Phosphatase 75 U/L (38-126); Anion Gap 11.9 mEq/L (5-15); Aspartate Amino Transferase 40 U/L (17-59); Bilirubin,Total 0.7 mg/dl (0.2-1.3); Blood Urea Nitrogen 10 mg/dl (9-20); Carbon Dioxide 28 mmol/L (22.0-30.0); Creatinine Clearance Estimated 108 mL/min (50-200); Estimated Glomerular Filt Rate 100 ml/min (>60); GFR (African American) 121 ML/MIN (>60); Globulin 3.3 g/dL (1.3-3.2); Total Protein,Serum 7.3 g/dl (6.3-8.2)
[2023-03-04 04:23] LABS: Calcium 8.3 mg/dl (8.4-10.2); Glucose 88 mg/dl (74-100)
--- NOTE | 2023-03-04 05:22 | PC.NURSE ---
Since arriving to the floor the patient has been able to rest. Patient CIWAs scores have been 2 and 3 respectively due to a headache. No other symptoms of withdrawal. Patient has been up to the bathroom a couple times. Has had good balance and gate. Patient remains AxO x4 and on RA. No issues have been stated by patient
[2023-03-04 06:36] LABS: Alanine Aminotransferase 21 U/L (12-78); Albumin Level 3.9 g/dl (3.5-5.0); Albumin/Globulin Ratio 1.2 (1.1-1.8); Alkaline Phosphatase 70 U/L (38-126); Aspartate Amino Transferase 42 U/L (17-59); Bilirubin,Total 0.9 mg/dl (0.2-1.3); Blood Urea Nitrogen 10 mg/dl (9-20); Calcium 8.5 mg/dl (8.4-10.2); Carbon Dioxide 27 mmol/L (22.0-30.0); Chloride 85 mmol/L (98-107); Creatinine Clearance Estimated 124 mL/min (50-200); Estimated Glomerular Filt Rate 116 ml/min (>60); GFR (African American) 141 ML/MIN (>60); Globulin 3.2 g/dL (1.3-3.2); Glucose 102 mg/dl (74-100); Sodium 120 mmol/L (136-145); Total Protein,Serum 7.1 g/dl (6.3-8.2)
--- NOTE | 2023-03-04 06:42 | PC.NURSE ---
contacted CHARLES mendoza concerning CMP draw at 6am. Na has stayed at 120, CHARLES wants to increase Normal Saline 3% to 30ml/hr and repeat cmp in 2hrs
[2023-03-04 07:01] LABS: Basophils % 0.2 % (0.1-2.0); Eosinophils # 0.5 K/mm3 (0.0-0.4); Eosinophils % 4.3 % (0.1-12.0); Hematocrit 38.8 % (42.0-52.0); Hemoglobin 13.1 g/dL (14.1-18.0); Lymphocytes # 1.7 K/mm3 (0.7-4.5); Lymphocytes % 15.8 % (10-50); Mean Corpuscular HGB Conc 33.9 g/dL (31.8-35.4); Mean Corpuscular Volume 91.4 fl (80-94); Mean Platelet Volume 7.5 fl (7.4-10.4); Monocytes # 0.6 K/mm3 (0.1-1.0); Neutrophils # 7.7 K/mm3 (1.8-7.8); Neutrophils % 73.6 % (37.0-80.0); Platelet Count 170 K/mm3 (142-424); Red Blood Count 4.24 M/mm3 (4.60-6.20); Red Cell Distribution Width 14.2 % (11.5-17.5); White Blood Count 10.4 K/mm3 (4.8-10.8)
[2023-03-04 10:02] LABS: Chloride 88 mmol/L (98-107); Potassium 3.9 mmoL/L (3.5-5.1); Sodium 123 mmol/L (136-145)
[2023-03-04 10:05] LABS: Alanine Aminotransferase 26 U/L (12-78); Albumin/Globulin Ratio 1.3 (1.1-1.8); Alkaline Phosphatase 62 U/L (38-126); Anion Gap 9.9 mEq/L (5-15); Aspartate Amino Transferase 42 U/L (17-59); Bilirubin,Total 0.9 mg/dl (0.2-1.3); Blood Urea Nitrogen 9 mg/dl (9-20); Carbon Dioxide 29 mmol/L (22.0-30.0); Creatinine Clearance Estimated 124 mL/min (50-200); Estimated Glomerular Filt Rate 116 ml/min (>60); GFR (African American) 141 ML/MIN (>60); Globulin 3.1 g/dL (1.3-3.2); Total Protein,Serum 7.1 g/dl (6.3-8.2)
[2023-03-04 10:06] LABS: Calcium 8.4 mg/dl (8.4-10.2); Glucose 130 mg/dl (74-100)
--- NOTE | 2023-03-04 11:36 | HMH.PHAINT1 ---
Pharmacy Intervention Comments: MEDICATION RECONCILIATION COMPLETE USING MOST RECENT MD OFFICE VISIT NOTE, SHAHLA REPORT, AND EXTERNAL PHARMACY FILL HISTORY.
[2023-03-04 11:58] LABS: Alanine Aminotransferase 24 U/L (12-78); Albumin/Globulin Ratio 1.3 (1.1-1.8); Alkaline Phosphatase 81 U/L (38-126); Aspartate Amino Transferase 41 U/L (17-59); Bilirubin,Total 1.3 mg/dl (0.2-1.3); Blood Urea Nitrogen 9 mg/dl (9-20); Calcium 8.7 mg/dl (8.4-10.2); Carbon Dioxide 28 mmol/L (22.0-30.0); Chloride 88 mmol/L (98-107); Creatinine Clearance Estimated 108 mL/min (50-200); Estimated Glomerular Filt Rate 100 ml/min (>60); GFR (African American) 121 ML/MIN (>60); Globulin 3.2 g/dL (1.3-3.2); Glucose 124 mg/dl (74-100); Sodium 124 mmol/L (136-145); Total Protein,Serum 7.2 g/dl (6.3-8.2)
[2023-03-04 14:04] LABS: Chloride 89 mmol/L (98-107); Sodium 125 mmol/L (136-145)
[2023-03-04 14:07] LABS: Alanine Aminotransferase 26 U/L (12-78); Albumin/Globulin Ratio 1.3 (1.1-1.8); Alkaline Phosphatase 59 U/L (38-126); Aspartate Amino Transferase 43 U/L (17-59); Bilirubin,Total 0.9 mg/dl (0.2-1.3); Blood Urea Nitrogen 9 mg/dl (9-20); Calcium 8.5 mg/dl (8.4-10.2); Carbon Dioxide 31 mmol/L (22.0-30.0); Creatinine Clearance Estimated 96 mL/min (50-200); Estimated Glomerular Filt Rate 87 ml/min (>60); GFR (African American) 105 ML/MIN (>60); Globulin 3.1 g/dL (1.3-3.2); Glucose 121 mg/dl (74-100); Total Protein,Serum 7.1 g/dl (6.3-8.2)
--- NOTE | 2023-03-04 14:37 | PC.NURSE ---
notified MD Callahan that pt's Na 125, instructed to stop 3%NACl and start NS at 75mL/hr
--- NOTE | 2023-03-04 15:00 | EXP.PN ---
Subjective *Date: 03/04/23 *Time: 15:00 Exam Data for Last 24 hours Vital signs and Labs for Last 24 Hours: Temp Pulse Resp BP Pulse Ox O2 Del Method 97.7 F 75 26 H 158/104 H 99 Room Air 03/04/23 11:35 03/04/23 14:00 03/04/23 14:00 03/04/23 14:00 03/04/23 14:00 03/04/23 14:47 Laboratory Results - last 24 hr 03/03/23 21:05: WBC 20.2 H*, RBC 4.36 L, Hgb 13.9 L, Hct 39.3 L, MCV 90.1, MCH 31.7 H, MCHC 35.2, RDW 14.1, Plt Count 220, MPV 9.0, Neut % (Auto) 78.0, Lymph % (Auto) 14.6, [place] % (Auto) 5.1, Eos % (Auto) 2.0, Baso % (Auto) 0.3, Neut # (Auto) 15.8 H, Lymph # (Auto) 3.0, [place] # (Auto) 1.0, Eos # (Auto) 0.4, Baso # (Auto) 0.1, Total Counted 100, Neutrophils % (Manual) 79 H, Lymphocytes % (Manual) 16, Monocytes % (Manual) 4, Eosinophils % (Manual) 1, Platelet Estimate Normal, RBC Morphology Normal, PT 11.9, INR 1.11 H, Free T4 1.25 03/03/23 21:27: Ammonia 19 03/03/23 22:40: Sodium 117 L, Potassium 3.7, Chloride 78 L, Carbon Dioxide 28, Anion Gap 14.7, BUN 12, Creatinine 1.00, Estimated Creat Clear 89, Estimated GFR 77, Est GFR ( Amer) 93, Glucose 89, Calcium 8.7, Phosphorus 3.4, Magnesium 1.6, Total Bilirubin 0.9, AST 41, ALT 24, Alkaline Phosphatase 78, Troponin I < 0.01, Total Protein 8.0, Albumin 4.6, Globulin 3.4 H, Albumin/Globulin Ratio 1.4, TSH 1.17 03/04/23 00:24: Chlamy pneumoniae PCR TNP, Adenovirus (PCR) Not detected, B. pertussis DNA (PCR) TNP, Coronavirus OC43 (PCR) Not detected, Coronavirus HKU1 (PCR) Not detected, Coronavirus 229E (PCR) Not detected, SARS-CoV-2 (PCR) Not detected, Coronavirus NL63 (PCR) Not detected, Human Metapneumovir PCR Not detected, Influenza A (H1) PCR Not detected, Influ A (H1N1/09) PCR Not detected, Influenza A (H3) PCR Not detected, Influenza Type A (PCR) Not detected, Influenza Type B (PCR) Not detected, M. pneumoniae (PCR) TNP, Parainfluenza 1 (PCR) Not detected, Parainfluenza 2 (PCR) Not detected, Parainfluenza 3 (PCR) Not detected, Parainfluenza 4 (PCR) Not detected, RSV (PCR) Not detected, Entero/Rhino (PCR) Not detected 03/04/23 00:30: Troponin I < 0.01 03/04/23 01:00 EST: WBC 14.6 H D, RBC 4.27 L, Hgb 13.6 L, Hct 38.4 L, MCV 89.9, MCH 31.7 H, MCHC 35.3, RDW 14.2, Plt Count 206, MPV 7.6, Neut % (Auto) 71.8, Lymph % (Auto) 18.3, [place] % (Auto) 5.5, Eos % (Auto) 4.1, Baso % (Auto) 0.3, Neut # (Auto) 10.5 H, Lymph # (Auto) 2.7, [place] # (Auto) 0.8, Eos # (Auto) 0.6 H, Baso # (Auto) 0.0, PT 11.7, INR 1.09, APTT 37.0 H 03/04/23 01:30 EST: Sodium 118 L, Potassium 3.7, Chloride 83 L, Carbon Dioxide 22, Anion Gap 16.7 H, BUN 11, Creatinine 0.70 D, Estimated Creat Clear 124, Estimated GFR 116, Est GFR ( Amer) 141 D, Glucose 95, Calcium 8.6, Phosphorus 3.4, Total Bilirubin 0.7, AST 45, ALT 20, Alkaline Phosphatase 82, Total Protein 7.3, Albumin 4.3, Globulin 3.0, Albumin/Globulin Ratio 1.4 03/04/23 02:02: Urine Color Yellow, Urine Appearance Clear, Urine pH 6.0, Ur Specific [place] <= 1.005, Urine Protein Negative, Urine Glucose (UA) Negative, Urine Ketones Negative, Urine Blood Negative, Urine Nitrate Negative, Urine Bilirubin Negative, Urine Urobilinogen 0.2, Ur Leukocyte Esterase Negative, Urine RBC None, Urine WBC Occasional, Ur Squamous Epith Cells Occasional, Urine Bacteria None 03/04/23 03:20: Troponin I 0.02 03/04/23 04:07: Sodium 120 L, Potassium 3.9, Chloride 84 L, Carbon Dioxide 28, Anion Gap 11.9, BUN 10, Creatinine 0.80, Estimated Creat Clear 108, Estimated GFR 100, Est GFR ( Amer) 121, Glucose 88, Calcium 8.3 L, Total Bilirubin 0.7, AST 40, ALT 20, Alkaline Phosphatase 75, Total Protein 7.3, Albumin 4.0, Globulin 3.3 H, Albumin/Globulin Ratio 1.2 03/04/23 06:06: Sodium 120 L, Potassium 4.0, Chloride 85 L, Carbon Dioxide 27, Anion Gap 12.0, BUN 10, Creatinine 0.70, Estimated Creat Clear 124, Estimated GFR 116, Est GFR ( Amer) 141, Glucose 102 H, Calcium 8.5, Total Bilirubin 0.9, AST 42, ALT 21, Alkaline Phosphatase 70, Total Protein 7.1, Albumin 3.9, Globulin 3.2, Albumin/Globulin Ra
[2023-03-04 16:13] LABS: Chloride 91 mmol/L (98-107); Potassium 3.8 mmoL/L (3.5-5.1); Sodium 125 mmol/L (136-145)
[2023-03-04 16:15] LABS: Alanine Aminotransferase 24 U/L (12-78); Aspartate Amino Transferase 41 U/L (17-59); Blood Urea Nitrogen 9 mg/dl (9-20); Creatinine Clearance Estimated 96 mL/min (50-200); Estimated Glomerular Filt Rate 87 ml/min (>60); GFR (African American) 105 ML/MIN (>60)
[2023-03-04 16:16] LABS: Albumin Level 3.9 g/dl (3.5-5.0); Albumin/Globulin Ratio 1.3 (1.1-1.8); Alkaline Phosphatase 61 U/L (38-126); Anion Gap 7.8 mEq/L (5-15); Bilirubin,Total 0.9 mg/dl (0.2-1.3); Calcium 8.5 mg/dl (8.4-10.2); Carbon Dioxide 30 mmol/L (22.0-30.0); Globulin 3.1 g/dL (1.3-3.2); Glucose 112 mg/dl (74-100)
--- NOTE | 2023-03-04 22:23 | PC.NURSE ---
Losartan 25 mg tab PO ordered, but no losartan within omincell. verified with SHMUEL Brown nurses supervisor. Metoprolol 50 mg tab PO given.
[2023-03-05] VITALS (13 sets, daily range): BP systolic 128–163; BP diastolic 80–103; PULSE 65–104; RESP 16–22; TEMP 36.6–37.1; O2SAT 93–97; BMI 24.3
--- NOTE | 2023-03-05 04:25 | PC.NURSE ---
Pt c/o difficulty breathing and audible expiratory wheezing heard. Called RT for PRN breathing tx.
--- NOTE | 2023-03-05 04:47 | PC.NURSE ---
Pt AOx4, intermittently sleeping throughout shift, no acute needs at this time. Pt c/o constant 9/10 headache, PRN pain medications given. CIWA scores consistently 3, requiring minimal CIWA protocol PRN Ativan. Pt hypertensive throughout beginning of shift, requiring antihypertensives and PRN hydralazine; BP normotensive at this time. Towards 0400 assessment, pt audibly wheezy and asking for breathing tx. Breathing tx administered, wheezing auscultated post-tx, but pt stated his breathing was improved. No acute needs or events at this time.
[2023-03-05 06:21] LABS: Basophils % 0.2 % (0.1-2.0); Eosinophils # 0.8 K/mm3 (0.0-0.4); Eosinophils % 10.1 % (0.1-12.0); Hematocrit 37.1 % (42.0-52.0); Hemoglobin 12.8 g/dL (14.1-18.0); Lymphocytes # 1.1 K/mm3 (0.7-4.5); Lymphocytes % 15.1 % (10-50); Mean Corpuscular HGB Conc 34.4 g/dL (31.8-35.4); Mean Corpuscular Volume 92.9 fl (80-94); Mean Platelet Volume 7.4 fl (7.4-10.4); Monocytes # 0.5 K/mm3 (0.1-1.0); Monocytes % 6.4 % (1.7-9.3); Neutrophils # 5.1 K/mm3 (1.8-7.8); Neutrophils % 68.3 % (37.0-80.0); Platelet Count 151 K/mm3 (142-424); Red Blood Count 3.99 M/mm3 (4.60-6.20); Red Cell Distribution Width 14.3 % (11.5-17.5); White Blood Count 7.5 K/mm3 (4.8-10.8)
[2023-03-05 06:30] LABS: Alanine Aminotransferase 21 U/L (12-78); Albumin Level 3.9 g/dl (3.5-5.0); Albumin/Globulin Ratio 1.2 (1.1-1.8); Alkaline Phosphatase 71 U/L (38-126); Anion Gap 12.8 mEq/L (5-15); Aspartate Amino Transferase 39 U/L (17-59); Bilirubin,Total 0.8 mg/dl (0.2-1.3); Blood Urea Nitrogen 6 mg/dl (9-20); Calcium 8.7 mg/dl (8.4-10.2); Carbon Dioxide 24 mmol/L (22.0-30.0); Chloride 93 mmol/L (98-107); Creatinine Clearance Estimated 120 mL/min (50-200); Estimated Glomerular Filt Rate 116 ml/min (>60); GFR (African American) 141 ML/MIN (>60); Globulin 3.2 g/dL (1.3-3.2); Glucose 118 mg/dl (74-100); Potassium 3.8 mmoL/L (3.5-5.1); Sodium 126 mmol/L (136-145); Total Protein,Serum 7.1 g/dl (6.3-8.2)
--- NOTE | 2023-03-05 10:34 | PC.NURSE ---
0810 spoke with pt regarding home vraylar. asked if pt had anyone who would be able to bring in his home medication so that he would be able to continue it while an inpatient. pt states he was unsure if anyone could bring it, but would see.
--- NOTE | 2023-03-05 11:29 | EXP.CARD.CON ---
History of Present Illness History of Present Illness Consult date: 03/05/23 Requesting physician: Isaac Callahan Chief complaint: syncope History of present illness: This is a 57-year-old white gentleman who presented to the emergency department with a complaint of syncope. The patient has a history of chronic heavy alcoholism, current tobacco user, aortic valve stenosis status post aortic valve replacement, hyperlipidemia the patient does not have a history of coronary artery disease, he had normal coronary arteries in 2020. The patient reports that he has been having recurrent episodes of syncope. The patient states that he had his first episode of syncope on Sunday. He reports that he was walking through his hallway carrying a plate of food when he coughed and had sudden syncope. He states that he lost consciousness for about 2 to 3 seconds and then woke up and was able to get up. He states that he did hit his face and had a black eye when he got up from the floor. He states that he passed out again on the day of the admission. He reports a similar episode. He states he was in the kitchen getting his plate of food ready when he coughed and passed out again. He states that he lost consciousness again for about 2 to 3 seconds. He hit his head during this fall and when he got up he had more extensive bruising to his face. Patient decided to come to the emergency department at that time. He denies any chest pain or pressure. He states that he is coughing because of his tobacco use. He denies any current shortness of breath. He denies any lower extremity edema. He denies any fever, chills, nausea, vomiting, diarrhea, PND orthopnea. The patient does drink at a minimum 12 beers daily. He states during both syncopal episodes he had had a few beers up until that point. The patient was hyponatremic with a sodium of 117 on admission. He ruled out for an NC. No arrhythmias or bradycardia has been noted. [facility] Disclaimer: The information contained in this section may have been updated after the patient was seen, as this information can be updated by other users. Medical History Anemia COPD (chronic obstructive pulmonary disease) COPD exacerbation COPD mixed type Current use of terminal gauger anticoagulation Dyspnea on exertion ETOH abuse Has been smoking for 30 years History of asthma HLD (hyperlipidemia) HTN (hypertension) Hypoglycemia Lung infiltrate Lung nodule Paroxysmal atrial fibrillation Rotator cuff arthropathy Seasonal allergies Seizure Syncope Tobacco user Surgical History H/O left knee surgery History of colonoscopy History of esophagogastroduodenoscopy (EGD) History of open heart surgery Family History Other Alcoholism Diabetes History of asthma Hyperlipidemia Hypertension Social History (Updated 03/04/23 @ 01:48 EST by Francia Estrada RN) Smoking Status: Current every day smoker tobacco type: cigarettes packs per day: 1 second hand exposure: Yes alcohol intake: current substance use type: denies use current occupational status: unemployed Travel in the last 8 weeks: None household members: significant other housing: apartment number of children: 1 current occupational exposures/hazards: No caffeine: Yes Review of Systems Review of Systems Review of systems:: pertinent systems reviewed and negative unless documented below Constitutional Constitutional: Reports system reviewed and no additional complaints, except as documented and Reports frequent falls Eyes Eyes: Reports system reviewed and no additional complaints, except as documented ENT Ears, Nose, Mouth, and Throat: Reports system reviewed and no additional complaints, except as documented and Denies vertigo *Cardiovascular Cardiovascular: Reports system reviewed and no additional complaints, except as doc
--- NOTE | 2023-03-05 11:37 | CA_ITS ---
FINAL REPORT TECHNIQUE: Burris scale, color and spectral doppler images of the bilateral carotid arteries were obtained. CLINICAL HISTORY: [place],FALL FINDINGS: Peak systolic velocity in the right internal carotid artery is 76 cm/sec. The internal carotid to common carotid artery ratio is 1.13. There is no significant carotid artery stenosis. Mild calcified plaque is seen at the bulb.. The right vertebral artery is normal in direction. Peak systolic velocity in the left internal carotid artery is 83 cm/sec. The internal carotid to common carotid artery ratio is 1.1. There is no significant carotid artery stenosis and no significant plaque formation. The left vertebral artery is normal in direction. IMPRESSION: No ultrasound evidence of hemodynamically significant carotid artery stenosis. Normal peak systolic velocities and normal internal to common carotid artery ratios bilaterally. Reviewed, Interpreted and Dictated by Daysi Davies MD Transcribed by Gabby Cobb Authenticated and [facility]
--- NOTE | 2023-03-05 13:27 | EXP.DC.SUM ---
General Admission date:: 03/03/23 Discharge date: 03/05/23 HPI HPI HPI: This is a 57 yo M with PMHx of chronic heavy alcoholism, smoker. COPD HTN. CAD, HLD, Aortic valve stenosis s/p replacement on presented to ER with a chief complaint of recurrent episodes of passing out, with the most recent episode occurring today. The patient reports that these episodes have been worsening, with the first episode occurring on Sunday evening. During these episodes, the patient loses consciousness for approximately two to three seconds and takes about three minutes to regain full awareness. There is no reported seizure-like activity associated with these episodes. Patient reported also been drinking alcohol, but does not attribute the episode to his alcohol habits. patient had an average of 12 daily beers. Currently denies any chest pain, neck pain, or pain in the arms, legs, or back. However, they report a headache and localized head pain with bruises on their face and right orbit from the first fall. Admitted for further management and treatment Hospital Course Hospital Course Hospital Course: 57 yo M with PMHx of chronic heavy alcoholism, smoker. COPD HTN. CAD, HLD, Aortic valve stenosis s/p replacement on presented to ER with a chief complaint of recurrent episodes of passing out, with the most recent episode occurring today. upon arrival, patient underwent into head/cervical CT, with no acute intracranial process or carotid stenosis. There is a scalp hematoma, with no skull fracture. likely form last fall. CXR concerning for focal right mid lobe pneumonia. labs work was conducted. Positive for severe hyponatreemia with Na on 117, marked leukocytosis. After disussion with ER provider. Agreed for admission. Patient treated for alcohol withdrawal. Labs improved. Clinically stable for discharge home. Problems addressed during hospitalization as follows: -Multiples episodes of syncopes with visible head trauma: Unclear etiology. Suspect related to nutritional deficiency, chronic hyponatremia, alcohol dependence. Monitored with CIWA protocol and treated with Ativan during admission. CIWA scores gradually improved, between 3 and 5 in the 24 hours preceding discharge. Patient's hyponatremia was corrected with hypertonic saline initially. Later supplemented with nutritional supplementation. Patient back to his baseline sodium with level of 126 on day of discharge. No seizures during admission. Patient alert and oriented. Back to baseline level of function. -Pneumonia: Community acquired Concern on admission for community-acquired pneumonia. Started on azithromycin and ceftriaxone. Transitioned to levofloxacin for ease of oral dosing at discharge. Plan to complete empiric course. No further signs of sepsis. On room air by day of discharge. Continued home medications for his chronic conditions including COPD, hypertension, hyperlipidemia, aortic prosthetic valve. See med rec for full details. No changes made to these home medications. Alcohol dependence. Monitored on CIWA protocol. Showed gradual improvement in withdrawal symptoms. Initially did not have an interest in cessation however expressed more interest in stopping drinking by day of discharge. Discussed alcohol cessation, patient interested in medication to help. Will start on naltrexone. Will need repeat liver function labs in 1 month to monitor for stability. If tolerates naltrexone well and has good benefit, can continue for up to 12 weeks of therapy. Patient will need repeat CMP in 1 month to monitor liver function with the initiation of naltrexone. Close follow-up with PCP within the week. Spent 30 minutes in discharge counseling, documentation, chart review, and direct care with patient. Exam Data for Last 24 hours Vital signs and Labs for Last 24 Hours: Temp Pulse Resp BP Pulse Ox O2 Del Method 98.0 F 104 H 20 149/96 H 96 Room Air 03/05/23 11:15
--- NOTE | 2023-03-05 14:21 | PC.NURSE ---
Patient refuses assistance to get dressed.
--- NOTE | 2023-03-05 16:02 | CA_ITS ---
APPROVED REPORT EXAM: Comprehensive 2D, Doppler, and color-flow Echocardiogram Geothermal Technician: Shefali Hernandez CRT Ht: 5 ft 8 in Wt: 160lbs BSA: 1.86 BP: 135/93 mmHg Indications: COPD, Syncope, CAD, Hyperlipidemia, Hypertension/HDD, AVR, Alcohol use 12 beers/day 2D Dimensions Aortic Root 2.05 cm LA Volume 43.80 mL LVOT 2.00 cm (M/F) 1.5-2.5 LA Volume Index 23.10 mL/m2 (M/F) 16-34 M-Mode Dimensions RVDd 2.16 cm (0.9-2.6) LA Diam 2.72 cm (1.9-4.0) LVDd 5.50 cm (3.5-5.7) Ao Diam 4.62 cm (2.0-3.7) LVDs 3.59 cm (3.5-5.7) IVSd 1.06 cm (0.6-1.1) PWd 0.96 cm (0.6-1.1) EF (Teich) 63.30% FS 34.70% EDV (Teich) 147.40 mL TAPSE 1.53 (<1.7) ESV (Teich) 54.10 mL LV Diastology E Decel Time 270.00 (160-240 msec) E/A Ratio 0.64 MED E' 5.20 (< 7 cm/sec) MED A' 6.70 cm/s E'/MED E' Ratio 14.44 (>14) LAT E' 5.90 (<10 cm/sec) LAT A' 12.60 cm/s E/LAT E' Ratio 12.73 (>14) Aortic Valve LVOT Max 137.00 (70-110 cm/s) LVOT VTI 28.36 cm AoV Peak Juve. 149.00 (50-130 cm/s) AO Peak GR. 8.90 mmHg AO Mean GR. 5.70 (<5 mmHg) AO VTI 29.52 (18-25 cm) OXANA (VTI) 3.02 (2.5-4.5 cm2) Mitral Valve MV E Max Juve. 75.00 (40-130 cm/s) MV A Velocity 117.00 (40-130 cm/s) E/A Ratio 0.64 MV Decel. Time 270.00 (160-240 ms) MV PHT 79.00 ms Pulmonary Valve PV Peak Velocity 128.00 (50-150 cm/s) Tricuspid Valve TR P. Velocity 159.00 cm/s RAP Estimate 10.00 mmHg RVSP 20.10 mmHg Left Ventricle The left ventricle is normal size. The left ventricular systolic function is normal. The left ventricular ejection fraction is within the normal range. There is increased LV wall thickness. There is normal LV segmental wall motion. The left ventricular diastolic function is normal. LVEF is 60-65%. Right Ventricle The right ventricle is normal size. The right ventricular systolic function is normal. Atria The left atrium size is normal. The right atrium size is normal. There is no Doppler evidence of interatrial shunt. Aortic Valve The aortic valve is not very well visualized, but grossly appears to open well. There is no aortic valvular stenosis. No aortic regurgitation is present. Mitral Valve The mitral valve is normal in structure. No evidence of mitral valve stenosis. There is no mitral valve regurgitation noted. Tricuspid Valve The tricuspid valve leaflets are thin and pliable. Trace tricuspid regurgitation. There is insufficient TR jet to estimate RVSP. Pulmonic Valve The pulmonary valve is normal in structure. Trace pulmonic regurgitation. Great Vessels The aortic root is normal in size. The ascending aorta is normal in size. IVC is normal in size and collapses >50% with inspiration. Pericardium There is no pericardial effusion. Other Information Study Quality: Technically Difficult Conclusion Technically difficult study due to poor acoustic windows. Normal biventricular systolic function. No significant valvular stenosis or regurgitation. Electronically signed by : Laura Mckeon MD 03/05/2023 09:24:25
--- NOTE | 2023-03-06 14:53 | CARE MANAGER ---
Called and spoke with patient regarding recent discharge. 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 We reviewed his scheduled f/u appts. No concerns voiced at time of call.
== END 2023-03-05 16:08 | disposition home or self-care (01) | DRG 194 ==
LOC: ER 21:03 → 2ND 03-04 00:23
PROVIDERS: Nurse Practitioner Family; Admitting Provider Internal Medicine; Emergency Provider Emergency Medicine; PCP Nurse Practitioner Family; Visit Provider Internal Medicine
DX: J18.9 Pneumonia, unspecified organism (principal); E87.1 Hypo-osmolality and hyponatremia; J44.0 Chronic obstructive pulmonary disease with (acute) lower respiratory infection; F10.239 Alcohol dependence with withdrawal, unspecified; R55 Syncope and collapse; I10 Essential (primary) hypertension; F17.210 Nicotine dependence, cigarettes, uncomplicated; S05.11XA Contusion of eyeball and orbital tissues, right eye, initial encounter; Z95.3 Presence of xenogenic heart valve; E78.2 Mixed hyperlipidemia; Z79.01 Long term (current) use of anticoagulants; G47.33 Obstructive sleep apnea (adult) (pediatric); I48.0 Paroxysmal atrial fibrillation
CPT/HCPCS: 36415; 70450; 71046; 72125; 80053; 81001; 82140; 83735; 84100; 84439; 84443; 84484; 85007; 85025; 85610; 85730; 87632; 87635; 93005; 93270; 93306; 93880; 99285; J0456; J0696; J1956

== ENCOUNTER 2023-05-01 13:58 | Outpatient (CLI) | payer MEDICAID, SELFPAY ==
[2023-05-01 17:27] LABS: Amphetamine/Metha Screen,Urine Negative ng/ml (<1000); Barbiturates Screen,Urine Negative ng/ml (<200); Benzodiazepines Screen,Urine Negative ng/ml (<200); Cannabinoid Screen,Urine Negative ng/ml (<50); Cocaine Screen,Urine Negative ng/ml (<300); Methadone Screen,Urine Negative ng/ml (<300); Opiate Screen,Urine Negative ng/ml (<300); Phencyclidine Screen,Urine Negative ng/ml (<25)
[2023-05-06 13:14] LABS: Codeine Negative (Cutoff=100); Hydrocodone Positive (.); Hydromorphone Negative (Cutoff=100); Morphine Negative (Cutoff=100); Opiates Positive (.)
== END 2023-05-01 23:59 ==
LOC: LAB.DROPOF 13:58
PROVIDERS: PCP Nurse Practitioner Family; Visit Provider Nurse Practitioner Family
DX: M12.819 Other specific arthropathies, not elsewhere classified, unspecified shoulder (principal); Z79.899 Other long term (current) drug therapy
CPT/HCPCS: 80307; 80361; 80365; G0480

== ENCOUNTER 2023-05-02 10:16 | Outpatient (CLI) | payer MEDICAID, SELFPAY | END 2023-05-02 23:59 | LOC: LAB.DROPOF 05-11 10:17 | PROVIDERS: PCP Nurse Practitioner Family; Visit Provider Nurse Practitioner Family | DX: Z79.899 Other long term (current) drug therapy (principal) | CPT/HCPCS: 80361; 80365; G0480 ==

== ENCOUNTER 2023-06-05 18:02 | Outpatient (CLI) | payer MEDICAID, SELFPAY ==
--- NOTE | 2023-06-05 18:06 | MR_ITS ---
PROCEDURE INFORMATION: Exam: MR Left Upper Extremity Joint Without Contrast; Shoulder Exam date and time: 06/05/2023 6:59 PM Age: 57 years old Clinical indication: Pain; Shoulder; Left; Additional info: Left shoulder pain TECHNIQUE: Imaging protocol: Magnetic resonance imaging of the left upper extremity without contrast. Exam focused on the shoulder. COMPARISON: 1. MR SHOULDER LT WO CON 02/03/2023 10:18 AM 2. MR SHOULDER LT WO CON 03/01/2022 9:01 AM 3. CR XR SHOULDER LT MIN 2V 02/28/2022 11:37 AM FINDINGS: Bones/joints: Flattening of the undersurface of the acromion is likely secondary to mechanical erosion from contact with the superiorly subluxed humeral head. Bone marrow edema involving the posterior aspect of the humeral head has worsened. Moderate primary osteoarthritis involves the acromioclavicular joint. Cartilage visualization is limited but full-thickness cartilage loss is presumed to involve over a 1.5 cm region of the glenoid. A moderate effusion involves the glenohumeral joint. Joint fluid extends through the full thickness rotator cuff tear into the subacromial-subdeltoid bursa. Glenoid labrum: Abnormal signal and morphology of the labrum in a patient of this age likely represents degenerative tearing. Supraspinatus tendon: A full-thickness tear involves the entire supraspinatus tendon. The tendon is retracted to near the level of the glenoid. Infraspinatus tendon: A full-thickness tear involves the upper two thirds of the infraspinatus tendon with retraction to near the glenoid. Subscapularis tendon: A full-thickness tear involves the entire subscapularis tendon. The tendon is retracted to near the level of the glenoid. Teres minor tendon: Moderate tendinosis involves the teres minor tendon. Tendon of biceps brachii: The intra-articular portion of the long head of the biceps tendon is poorly visualized. This may represent unusually severe tendinosis, high-grade partial-thickness tear, or full-thickness tear. A longitudinal tear involves the long head of the biceps tendon at the level of the distal bicipital groove and proximal humeral diaphysis. Glenohumeral ligaments: Unremarkable as visualized. Soft tissues: The subscapularis muscle demonstrates grade 4 (out of 4) muscle atrophy. The supraspinatus and infraspinatus muscles demonstrate grade 3 (out of 4) muscle atrophy. IMPRESSION: 1. Full-thickness tear of the entire subscapularis tendon with retraction to near the level of the glenoid and severe muscle atrophy, similar compared with 2022. 2. Full-thickness tear of the entire supraspinatus tendon with retraction to near the level of the glenoid and moderate muscle atrophy, similar compared with 2022. 3. Full-thickness infraspinatus tendon tear involving the superior two thirds of the tendon with retraction to near the glenoid and moderate muscle atrophy, similar compared with 2022. 4. Poorly delineated intra-articular portion of the long head of the biceps tendon, which may represent unusually severe tendinosis, high-grade partial-thickness tear or full-thickness tear. 5. Abnormal signal and morphology of the glenoid labrum, likely representing degenerative tearing. 6. 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 7. Significant cartilage damage involving the glenoid.
== END 2023-06-05 23:59 ==
LOC: RAD 18:03
PROVIDERS: PCP Nurse Practitioner Family; Visit Provider Orthopaedic Surgery
DX: M25.512 Pain in left shoulder (principal)
CPT/HCPCS: 73221

== ENCOUNTER 2023-06-07 12:08 | Outpatient (CLI) | payer MEDICAID, SELFPAY ==
--- NOTE | 2023-06-07 14:04 | CT_ITS ---
FINAL REPORT TECHNIQUE: Axial imaging of the chest was obtained without contrast. Reformatted images were also obtained and reviewed.This study was performed with techniques to keep radiation doses as low as reasonably achievable, (ALARA). Individualized dose reduction technique using automated exposure control or adjustment of mA and/or kV according to the patient's size were employed. CLINICAL HISTORY: abnormal CT chest soa, cough smoker x 40 yrs COMPARISON: 11/15/2022 FINDINGS: Patient is status post median sternotomy. There is ectasia of the ascending aorta measuring 40 mm. There is an aortic valve graft in place. There is no axillary adenopathy. There is no hilar or mediastinal mass or adenopathy. Heart size is normal. There is no pericardial or pleural effusion. Limited images of the upper abdomen are unremarkable. There are partially improved bibasilar opacities which are likely inflammatory. There is a persistent nodule seen in the left lower lobe measuring 11 mm. Other scattered smaller nodules also persist. There is a moderate-sized hiatal hernia. IMPRESSION: Persistent but partially improved pulmonary nodular opacities, likely inflammatory. Recommend additional follow-up in 6-12 months. Reviewed, Interpreted and Dictated by Jigar Hewitt III, MD Transcribed by Gabby Cobb Authenticated and [facility]
[2023-06-07] MEDS: ALBUTEROL 0.083% 2.5 MG/3 ML NEB IH (14:32)
== END 2023-06-07 23:59 ==
LOC: RT 12:09
PROVIDERS: PCP Nurse Practitioner Family; Visit Provider Internal Medicine Pulmonary Disease
DX: R06.09 Other forms of dyspnea (principal); R91.8 Other nonspecific abnormal finding of lung field
CPT/HCPCS: 71250; 94060; 94618; 94726; 94729

== ENCOUNTER 2023-11-08 10:20 | Outpatient (CLI) | payer MEDICAID, SELFPAY ==
[2023-11-08 18:23] LABS: Basophils # 0.1 K/mm3 (0-0.2); Basophils % 0.7 % (0.1-2.0); Eosinophils # 1.3 K/mm3 (0.0-0.4); Eosinophils % 12.1 % (0.1-12.0); Hematocrit 41.7 % (42.0-52.0); Hemoglobin 13.8 g/dL (14.1-18.0); Lymphocytes # 2.7 K/mm3 (0.7-4.5); Lymphocytes % 24.8 % (10-50); Mean Corpuscular Hemoglobin 30.5 pg (27.0-31.2); Mean Corpuscular Volume 92.4 fl (80-94); Mean Platelet Volume 9.5 fl (7.4-10.4); Monocytes % 9.4 % (1.7-9.3); Neutrophils # 5.7 K/mm3 (1.8-7.8); Neutrophils % 52.9 % (37.0-80.0); Platelet Count 358 K/mm3 (142-424); Red Blood Count 4.51 M/mm3 (4.60-6.20); Red Cell Distribution Width 16.1 % (11.5-17.5); White Blood Count 10.8 K/mm3 (4.8-10.8)
[2023-11-08 18:48] LABS: Potassium 3.9 mmoL/L (3.5-5.1)
[2023-11-08 18:51] LABS: Alanine Aminotransferase 22 U/L (12-78); Albumin Level 4.5 g/dl (3.5-5.0); Albumin/Globulin Ratio 1.2 (1.1-1.8); Alkaline Phosphatase 82 U/L (38-126); Aspartate Amino Transferase 39 U/L (17-59); Bilirubin,Total 0.4 mg/dl (0.2-1.3); Blood Urea Nitrogen 13 mg/dl (9-20); Calcium 9.4 mg/dl (8.4-10.2); Carbon Dioxide 22 mmol/L (22.0-30.0); Chol/HDL Ratio 2.1 (1-3.5); Cholesterol 163 mg/dl (140-200); Estimated Glomerular Filt Rate 87 ml/min (>60); GFR (African American) 105 ML/MIN (>60); Globulin 3.8 g/dL (1.3-3.2); Glucose 87 mg/dl (74-100); HDL Cholesterol 77 mg/dl (40-60); Iron 78 ug/dL (49-181); Total Protein,Serum 8.3 g/dl (6.3-8.2); Triglycerides 96 mg/dl (30-150); VLDL Cholesterol 19 mg/dL (0-40)
[2023-11-08 19:00] LABS: Anion Gap 15.9 mEq/L (5-15); Chloride 95 mmol/L (98-107); Sodium 129 mmol/L (136-145)
[2023-11-08 19:01] LABS: Total Iron Binding Capacity 435 ug/dL (261-462)
[2023-11-08 19:02] LABS: Direct LDL Cholesterol 69.83 mg/dL (100-129)
[2023-11-08 19:21] LABS: 25-OH Vitamin D, Total 59.4 ng/mL (30-100)
[2023-11-08 19:24] LABS: Thyroid Stimulating Hormone 1.29 uIU/mL (0.465-4.68)
[2023-11-08 19:36] LABS: Prostate Specific Ag Screen 0.5 ng/ml (0.0-4.0)
== END 2023-11-08 23:59 | disposition home or self-care (01) ==
LOC: LAB.DROPOF 11-09 09:49
PROVIDERS: PCP Nurse Practitioner Family; Visit Provider Nurse Practitioner Family
DX: D50.8 Other iron deficiency anemias (principal); I10 Essential (primary) hypertension; Z79.899 Other long term (current) drug therapy; Z12.11 Encounter for screening for malignant neoplasm of colon
CPT/HCPCS: 80050; 80053; 80061; 82306; 83540; 83550; 84443; 85025; G0103

== ENCOUNTER 2024-01-10 13:54 | Outpatient (CLI) | payer MEDICAID, SELFPAY ==
--- NOTE | 2024-01-10 13:58 | XR_ITS ---
FINAL REPORT CLINICAL HISTORY: R Shoulder pain FINDINGS: Right shoulder Three views were obtained. There is no acute fracture or dislocation. There is severe degenerative changes. Soft tissue calcification is identified. IMPRESSION: Severe degenerative changes. Reviewed, Interpreted and Dictated by Jigar Hewitt III, MD Transcribed by Kaylee Lamb Authenticated and [facility]
== END 2024-01-10 23:59 | disposition home or self-care (01) ==
LOC: RAD 13:55
PROVIDERS: PCP Nurse Practitioner Family; Visit Provider Nurse Practitioner Family
DX: M25.511 Pain in right shoulder (principal)
CPT/HCPCS: 73030

== ENCOUNTER 2024-03-11 15:00 | Outpatient (CLI) | payer MEDICAID, SELFPAY ==
[2024-03-11 19:28] LABS: Blood Urea Nitrogen 8 mg/dl (9-20); Calcium 9.3 mg/dl (8.4-10.2); Carbon Dioxide 26 mmol/L (22.0-30.0); Chloride 88 mmol/L (98-107); Estimated Glomerular Filt Rate 87 ml/min (>60); GFR (African American) 105 ML/MIN (>60); Glucose 91 mg/dl (74-100); Sodium 127 mmol/L (136-145)
[2024-03-11 19:33] LABS: Anion Gap 16.9 mEq/L (5-15); Potassium 3.9 mmoL/L (3.5-5.1)
== END 2024-03-11 23:59 | disposition home or self-care (01) ==
LOC: LAB.DROPOF 03-12 11:17
PROVIDERS: PCP Nurse Practitioner Family; Visit Provider Nurse Practitioner Family
DX: E78.2 Mixed hyperlipidemia (principal)
CPT/HCPCS: 80048

== ENCOUNTER 2024-03-21 13:38 | Outpatient (CLI) | payer MEDICAID, SELFPAY ==
--- NOTE | 2024-03-21 13:45 | CA_ITS ---
APPROVED REPORT EXAM: Comprehensive 2D, Doppler, and color-flow Echocardiogram Station Examiner: Anuradha Bolanos RT(R) Ht: 5 ft 8 in Wt: 176lbs BSA: 1.94 BP: 157/88 mmHg Indications: hx of bovine AV, COPD, smoker, HTN, hyperlipidemia, SOB, etoh abuse, ROXANA, KYARA, abn EKG, preop assessment for colonoscopy. 2D Dimensions LA Volume 34.00 mL LA Volume Index 17.53 mL/m2 (M/F) 16-34 EF AP4 52.80 % GL Strain -12.2 % M-Mode Dimensions RVDd 3.06 cm (0.9-2.6) LA Diam 1.87 cm (1.9-4.0) LVDd 4.68 cm (3.5-5.7) LVDs 3.49 cm (3.5-5.7) IVSd 1.11 cm (0.6-1.1) PWd 1.11 cm (0.6-1.1) EF (Teich) 50.10% FS 25.40% EDV (Teich) 101.30 mL ESV (Teich) 50.50 mL LV Diastology E Decel Time 170 (160-240 msec) E/A Ratio 1.2 Aortic Valve OXANA Index 1.17 cm2/m2 AoV Peak Juve. 172.0 (50-130 cm/s) AO Peak GR. 11.90 mmHg AO Mean GR. 5.90 (<5 mmHg) AO VTI 36.2 (18-25 cm) OXAAN (VTI) 2.31 (2.5-4.5 cm2) Mitral Valve MV E Max Juve. 101.0 (40-130 cm/s) MV A Velocity 85.0 (40-130 cm/s) E/A Ratio 1.18 MV PHT 50.0 ms Left Ventricle The left ventricle is normal size. The left ventricular systolic function is normal. The left ventricular ejection fraction is within the normal range. There is increased LV wall thickness. There is normal LV segmental wall motion. The left ventricular diastolic function is normal. LVEF is 55%. Right Ventricle The right ventricle is mildly dilated. The right ventricular systolic function is normal. Atria The left atrium size is normal. The right atrium size is normal. There is no Doppler evidence of interatrial shunt. Aortic Valve s/p bioprosthetic AVR. Peak velocity 1.8 m/s. Mean AV gradient 7 mmHg. Max AV gradient 13 mmHg. Trace central aortic regurgitation. Mitral Valve The mitral valve is normal in structure. Trace mitral regurgitation. Tricuspid Valve Tricuspid valve is grossly normal in structure and function. Trace tricuspid regurgitation. There is insufficient TR jet to estimate RVSP. Pulmonic Valve The pulmonary valve is normal in structure. Trace pulmonic regurgitation. Great Vessels The aortic root is normal in size. The ascending aorta is not well-visualized. IVC is normal in size and collapses >50% with inspiration. Pericardium There is no pericardial effusion. Other Information Study Quality: Fair Conclusion Normal biventricular systolic function. Mild RV dilation. s/p bioprosthetic AVR. Trace central AI. Acceptable transaortic gradients (peak velocity 1.8 m/s. Mean AV gradient 7 mmHg. Max AV gradient 13 mmHg). When directly compared to the prior study from 03/05/2023, the transaortic gradients are unchanged. Electronically signed by : Laura Mckeon MD 03/31/2024 13:53:56
== END 2024-03-21 23:59 | disposition home or self-care (01) ==
LOC: RT 13:38
PROVIDERS: PCP Nurse Practitioner Family; Visit Provider Physician Assistant
DX: I35.0 Nonrheumatic aortic (valve) stenosis (principal)
CPT/HCPCS: 93306